=== PATIENT | female | born 1980 | race Caucasian/White ===

== ENCOUNTER → 2017-11-29 13:48 | Outpatient (CLI) | payer OTHER, SELFPAY | PROVIDERS: Family Provider Family Medicine; PCP Family Medicine; Visit Provider Physician Assistant | DX: J02.0 Streptococcal pharyngitis (principal) | CPT/HCPCS: 87070; 87077; 87147 ==

== ENCOUNTER → 2018-05-10 15:13 | Outpatient (CLI) | payer OTHER, SELFPAY ==
[2018-05-10 16:00] LABS: Add Manual Diff / Slide Review NO; Basophils Absolute Auto 100 /uL (0-100); Basophils Percent Auto 0.7 % (0-2); Eosinophils Absolute Auto 300 /uL (0-450); Eosinophils Percent Auto 3.3 % (2-4); Hematocrit 41.9 % (36-46); Lymphocytes Absolute Auto 3100 /uL (1100-4500); Lymphocytes Percent Auto 35.1 % (25-40); Mean Corpuscular HGB Conc 33.3 % (30-36); Mean Corpuscular Hemoglobin 28.8 PG (26-34); Mean Corpuscular Volume 86.6 fL (80-100); Monocytes Absolute Auto 600 /uL (0-900); Monocytes Percent Auto 6.6 % (3-14); Neutrophils Absolute Auto 4800 /uL (1500-7000); Neutrophils Percent Auto 54.3 % (50-75); Platelet Count 292 X10^3/uL (150-400); Red Blood Cell Count 4.84 X10^6/uL (4.0-5.2); Red Cell Distribution Width 13.5 % (11.6-14.8); White Blood Cell Count 8.9 X10^3/uL (4.5-11.0)
== END ==
PROVIDERS: PCP Family Medicine; Visit Provider Registered Nurse
DX: R10.13 Epigastric pain (principal)
CPT/HCPCS: 36415; 83013; 85025

== ENCOUNTER → 2018-06-13 12:07 | Outpatient (CLI) | payer OTHER, MEDICAID, SELFPAY ==
[2018-06-13 14:28] LABS: Urine N gonorrhoeae NOT DETECTED
[2018-06-13 14:37] LABS: Urine Chlamydia NOT DETECTED
[2018-06-14 16:06] LABS: HIV Ag/Ab, 4th Gen Nonreactive (Nonreactive)
[2018-06-15 08:40] LABS: Hepatitis A Antibody IgM NONREACTIVE (NONREACTIVE); Hepatitis Acute Panel Interp 0.02; Hepatitis B Core Antibody IgM NONREACTIVE (NONREACTIVE); Hepatitis B Surface Antigen NONREACTIVE (NONREACTIVE); Hepatitis C Antibody NONREACTIVE
[2018-06-15 23:05] LABS: RPR Screen Nonreactive (Nonreactive)
== END ==
PROVIDERS: PCP Family Medicine; Visit Provider Registered Nurse
DX: Z11.3 Encounter for screening for infections with a predominantly sexual mode of transmission (principal)
CPT/HCPCS: 36415; 80074; 86592; 86703; 87491; 87591

== ENCOUNTER 2018-10-09 07:17 | Emergency (ER) | payer OTHER, MEDICAID, SELFPAY ==
[2018-10-09 07:26] VITALS: BP 135/79; PULSE 70; RESP 13; TEMP 36.9; O2SAT 98
--- NOTE | 2018-10-09 07:52 | ED.HA ---
HPI - Headache General Chief Complaint: Headache Stated Complaint: Migraine, fogginess, dizziness, body ache Time Seen by Provider: 10/09/18 07:44 Source: patient Mode of arrival: ambulatory Limitations: no limitations History of Present Illness HPI Narrative: Patient complains of headache for the last 2-3 days. She states that the pain is on the left side of her head and face. She has also had nausea, but no vomiting. Patient has a history of migraine headaches, as well as which she states is most likely fibromyalgia, as her mother is also reflected by this. Patient states that the headache feels like other headaches she has had, though it is on the more severe end of the spectrum. Patient states that her vision seems ?slow? and that light bothers her eyes. Patient denies recent head injury. No fevers or chills. No recent upper respiratory or sinus illness. No other complaints at this time. Related Data Previous Rx's Medication Instructions Recorded norethindrone-ethinyl estradiol 1 1 tab PO DAILY #63 tab 10/02/18 mg-35 mcg (21) tablet Allergies Allergy/AdvReac Type Severity Reaction Status Date / Time Penicillins Allergy Intermediate nausea and Verified 10/02/18 08:46 itching. sulfamethoxazole Allergy Mild Hives Verified 10/02/18 08:46 [From ] trimethoprim [From ] Allergy Mild hives Verified 10/02/18 08:46 Review of Systems Constitutional Denies chills, Denies fever(s), Reports headache(s), Denies lethargy and Denies weakness Eyes Denies change in vision, Denies eye discharge, Denies irritation and Denies loss of vision ENT Ears, Nose, Mouth, and Throat: Denies change in voice, Reports headache(s), Denies neck pain and Denies sore throat Cardiovascular Denies chest pain, Denies irregular heart rhythm, Denies lightheadedness, Denies palpitations, Denies dyspnea, Denies dyspnea on exertion and Denies orthopnea Respiratory Denies cough, Denies dyspnea, Denies dyspnea on exertion and Denies wheezing Gastrointestinal Gastrointestinal: Denies abdominal pain, Denies change in bowel habits, Denies diarrhea, Reports nausea and Denies vomiting Genitourinary Denies hematuria, Denies flank pain, Denies urinary incontinence and Denies urinary urgency Musculoskeletal Denies neck pain Integumentary/Breasts Denies pruritus, Denies erythema, Denies rash and Denies wounds Neurologic Denies confusion, Reports headache(s), Denies loss of vision and Denies weakness Psychiatric Denies anxiety, Denies confusion, Denies depression, Denies homicidal ideation and Denies suicidal ideation Endocrine Denies palpitations Hematologic/Lymphatic Denies easy bruising Allergic/Immunologic Denies wheezing [facility] Medical History ADHD (Chronic) Acne (Chronic) Anxiety (Chronic) Chronic back pain (Chronic) Depression (Chronic) Eczema (Chronic) Headache (Chronic) Human papilloma virus (Chronic) Irregular menstrual cycle (Chronic) Migraines (Chronic) Overactive bladder (Chronic ~2008) Painful menstrual periods (Chronic) Plantar warts (Chronic) Post traumatic stress disorder (PTSD) (Chronic) Abnormal Pap smear of cervix (Resolved) Chicken pox (Resolved) Fractures (Resolved) Vertigo (Resolved ~2017) Surgical History Anesthesia (Resolved) History of surgery (Resolved ~2013) History of tonsillectomy and adenoidectomy (Resolved) History of tubal ligation (Resolved ~08/2008) Family History Father Bladder cancer Diabetes mellitus Atrial fibrillation Mother Heart disease Hypertension Atrial fibrillation Brother Hyperlipidemia Hypertension Grandmother Stroke Social History marital status: unmarried,single number of children: 2 household members: family lives independently: Yes education level: college occupational status: employed Smoking Status: Former smoker alcohol intake: current (rare) substance use type: does not use Family History Father Bladder cancer Diabetes mellitus Atrial fibrillation Mother Heart disease Hypertension Atrial fibrillation Brother Hyperlipidemia Hypertension Grandmother Stroke Social History marital status: unmarried,single number of children: 2 household members: family lives independently: Yes education level: college occupational status: employed Smoking Status: Former smoker alcohol intake: current (rare) substance use type: does not use Exam Initial Vital Signs Initial Vital Signs: Vital Signs Temperature 98.4 F 10/09/18 07:26 Pulse Rate 70 10/09/18 07:26 Respiratory Rate 13 10/09/18 07:26 Blood Pressure 135/79 10/09/18 07:26 Pulse Oximetry 98 10/09/18 07:26 Const General: cooperative and well developed Nutritional Appearance: well nourished Orientation: alert, awake, oriented x3 and not confused [facility] Head: normocephalic and atraumatic Ears: external ears normal Nose: external nose normal and No nasal discharge Face and sinus: face symmetric and No dry mucous membranes Mouth: oral mucosae normal and moist mucous membranes Teeth and gingiva: dentition normal Eyes General: appearance normal, both eyes and all related structures Eyelids: eyelids normal Conjunctivae: conjunctivae normal Sclera: sclerae normal Pupils: PERRL EOM: EOM intact bilaterally Neck Neck: normal visual inspection, trachea midline, No lymphadenopathy, No midline deformity and No JVD Lymphatic: No lymphedema Chest Chest: normal inspection of the chest Resp Effort & Inspection: normal respiratory effort, able to speak in complete sentences, no respiratory distress and no use of accessory muscles Auscultation: clear to auscultation bilaterally, no rales, no rhonchi and no wheezes Cardio Rate: regular rate Rhythm: regular rhythm Heart Sounds: no click, no gallops, no murmurs and no rubs Pulses: normal peripheral pulses GI Inspection: non-distended Palpation: soft, no hepatosplenomegaly, No guarding, No pulsatile mass and No tender Back/Spine/Pelvis Back: No CVA tenderness Cervical Spine: cervical ROM normal and No pain with cervical ROM Thoracic/Lumbar Spine: thoracic and lumbar spine normal to inspection Skin General: no rashes or lesions noted, No jaundice and No petechiae Neuro General: alert, oriented x3, gait normal and no focal motor deficits Speech: speech normal Extrem General: full ROM, no clubbing, cyanosis or edema, no pedal edema and no calf tenderness Psych Appearance: well kempt Mental Status: mental status grossly normal Attitude: cooperative Thought Content: normal and suicidality Judgment: judgment good Course Course Narrative: Patient was offered IM medication versus IV, and ultimately, was decided that IV fluids and meds would be given. Patient was given a L of IV saline, as well as doses of Benadryl, Toradol, and Compazine, with improvement in symptoms. I felt she was stable for discharge home. We have discussed home management of symptoms, as well as the usual indications for return. Orders Ordered: Discontinued Medications Diphenhydramine HCl (Benadryl) 25 mg IV NOW ONE Stop: 10/09/18 07:52 Last Admin: 10/09/18 08:18 Dose: 25 mg Sodium Chloride (Normal Saline 0.9%) 1,000 mls @ 1,000 mls/hr IV BOLUS ONE Stop: 10/09/18 08:50 Last Admin: 10/09/18 08:19 Dose: 1,000 mls/hr Ketorolac Tromethamine (Toradol) 30 mg IV NOW ONE Stop: 10/09/18 07:52 Last Admin: 10/09/18 08:19 Dose: 30 mg Prochlorperazine (Compazine) 10 mg IV NOW ONE Stop: 10/09/18 07:52 Last Admin: 10/09/18 08:19 Dose: 10 mg Vital Signs - 8 hr 10/09/18 07:26 Temperature 98.4 F Pulse Rate 70 Respiratory Rate 13 Blood Pressure 135/79 Pulse Oximetry 98 MDM - Headache Medical Records Attestation: I reviewed the patient's medical records. Discharge Plan Departure Patient Disposition: Home Clinical Impression: Headache Qualifiers: Headache type: unspecified Headache chronicity pattern: episodic headache Intractability: not intractable Qualified Code(s): R51 - Headache Discharge Date/Time: 10/09/18 09:48 Interventions: ED Discharge Assessment Last Done: 10/09/18 09:46 Instructions: DI for Headache Prescriptions: No Action Nortrel 1/35 (21) 1-35 mg-mcg (21) tablet 1 tab PO DAILY Qty: 63 RF: 0 Referrals: Winsome Anderson DO [Primary Care Provider] -
[2018-10-09] MEDS: diphenhydrAMINE 50 MG/ML VIAL 25 MG IV (08:18)
[2018-10-09] MEDS: KETOROLAC 60 MG/2 ML VIAL 30 MG IV (08:19)
[2018-10-09] MEDS: PROCHLORPERAZINE 10 MG/2 ML VIAL IV (08:19)
[2018-10-09] MEDS: SODIUM CHLORIDE 0.9% 1,000 ML 1000 ML IV (08:19)
[2018-10-09 09:46] VITALS: BP 126/78; PULSE 68; RESP 13; TEMP 36.6; O2SAT 100
--- NOTE | 2018-10-22 14:40 | PC.NURSE ---
iv started 755, fluids started at that time 1000cc ns infused/ done at 0915.late entry
== END 2018-10-09 09:48 | disposition home or self-care (01) ==
PROVIDERS: Emergency Provider Emergency Medicine; PCP Family Medicine
DX: R51 Headache (principal)
CPT/HCPCS: 36591; 96361; 96374; 96375; 99282; 99284; J0780; J1200; J1885

== ENCOUNTER → 2018-10-23 14:37 | Outpatient (CLI) | payer OTHER, MEDICAID, SELFPAY ==
[2018-10-23 15:14] LABS: Hematocrit 41.1 % (36-46); Hemoglobin 13.6 g/dL (12.0-16.0); Mean Corpuscular HGB Conc 33.1 % (30-36); Mean Corpuscular Hemoglobin 28.5 PG (26-34); Mean Corpuscular Volume 86.1 fL (80-100); Platelet Count 287 X10^3/uL (150-400); Red Blood Cell Count 4.77 X10^6/uL (4.0-5.2); Red Cell Distribution Width 13.3 % (11.6-14.8); White Blood Cell Count 9.3 X10^3/uL (4.5-11.0)
[2018-10-23 15:44] LABS: Erythrocyte Sedimentation Rate 11 MM/HR (0-20)
[2018-10-23 15:55] LABS: C-Reactive Protein Quant 2.6 mg/dL (<1.0)
[2018-10-23 16:04] LABS: Rheumatoid Factor < 8.6 IU/mL (<12.0)
== END ==
PROVIDERS: PCP Family Medicine; Visit Provider Registered Nurse
DX: M25.50 Pain in unspecified joint (principal); G89.29 Other chronic pain
CPT/HCPCS: 36415; 85027; 85651; 86038; 86140; 86430

== ENCOUNTER 2018-11-18 16:08 | Emergency (ER) | payer OTHER, MEDICAID, SELFPAY ==
[2018-11-18 16:29] VITALS: BP 133/83; PULSE 95; RESP 15; TEMP 37; O2SAT 97; BMI 38.2
--- NOTE | 2018-11-18 16:34 | DI.RAD.S_ITS ---
PROCEDURE: XR KNEE RT 1TO2V INDICATIONS: fall TECHNIQUE: 2 views of the knee were acquired. COMPARISON: None. FINDINGS: Bones: No fractures or dislocations. No suspicious bony lesions. Soft tissues: No joint effusion. No suspicious soft tissue calcifications. IMPRESSION: 1. No fracture or dislocation. Dictated by: Javid Cardenas M.D. on 11/18/2018 at 16:27 Approved by: Javid Cardenas M.D. on 11/18/2018 at 16:28
[2018-11-18] MEDS: KETOROLAC 60 MG/2 ML VIAL IM (18:44)
--- NOTE | 2018-11-18 19:30 | ED.LOWEXIN ---
HPI - Extremity Injury (Lower) <RENO Craft - Last Filed: 11/18/18 20:12> General Chief Complaint: Extremity Injury, Lower Stated Complaint: fall, hurt her right knee Time Seen by Provider: 11/18/18 18:02 Source: patient Mode of arrival: Family Vehicle Limitations: no limitations History of Present Illness HPI Narrative: The patient is a 38 year old female former smoker with history of PCOS who presents with a chief complaint of knee pain. She states she slipped on a recently mopped floor and landed on her right knee. She subsequently has pain in her right patella area. She was able to ambulate after. This happened this morning approximately 10:00 a.m.. She denies any twisting or popping. She states she landed directly on her knee cap. No previous injuries to the knee. Took some Tylenol and nothing else. Complains of bruising and swelling. Related Data Previous Rx's Medication Instructions Recorded norethindrone-ethinyl estradiol 1 1 tab PO DAILY #63 tab 10/02/18 mg-35 mcg (21) tablet Allergies Allergy/AdvReac Type Severity Reaction Status Date / Time Penicillins Allergy Intermediate nausea and Verified 10/23/18 13:51 itching. sulfamethoxazole Allergy Mild Hives Verified 10/23/18 13:51 [From ] trimethoprim [From ] Allergy Mild hives Verified 10/23/18 13:51 Review of Systems <RENO Craft - Last Filed: 11/18/18 20:12> Review of Systems Narrative: GENERAL: Denies chills, fatigue, malaise, fever, sweats. HEENT: Denies sinus pain, ear pain, sore throat, difficulty swallowing, dizziness. RESPIRATORY: Denies dyspnea, cough, wheezing, hemoptysis, sputum. CARDIOVASCULAR: Denies chest pain, palpitations, orthopnea, edema, GASTROINTESTINAL: Denies nausea, vomiting, abdominal pain, diarrhea, constipation, melena. : Denies dysuria, frequency, incontinence, hematuria, urinary retention. MUSCULOSKELETAL: See HPI SKIN: See HPI NEUROLOGIC: Denies weakness, headache, numbness, change in speech, confusion, seizures, incoordination. PSYCHIATRIC: No concerning psychosocial issues. 12 point review of systems is negative except for those stated above PFSH <RENO Craft - Last Filed: 11/18/18 20:12> Medical History (Updated 11/18/18 @ 19:36 by RENO Craft) Abnormal Pap smear of cervix (Resolved) Acne (Chronic) ADHD (Chronic) Anxiety (Chronic) Chicken pox (Resolved) Chronic back pain (Chronic) Depression (Chronic) Eczema (Chronic) Family history of fibromyalgia (Acute) Fractures (Resolved) Headache (Chronic) Human papilloma virus (Chronic) Irregular menstrual cycle (Chronic) Migraines (Chronic) Obesity (Acute) Overactive bladder (Chronic ~2008) Painful menstrual periods (Chronic) Plantar warts (Chronic) Post traumatic stress disorder (PTSD) (Chronic) Vertigo (Resolved ~2017) Surgical History Anesthesia (Resolved) History of surgery (Resolved ~2013) History of tonsillectomy and adenoidectomy (Resolved) History of tubal ligation (Resolved ~08/2008) Family History Father Bladder cancer Diabetes mellitus Atrial fibrillation Mother Heart disease Hypertension Atrial fibrillation Brother Hyperlipidemia Hypertension Grandmother Stroke Social History marital status: unmarried,single number of children: 2 household members: family lives independently: Yes education level: college occupational status: employed Smoking Status: Former smoker alcohol intake: current (rare) substance use type: does not use Social History marital status: unmarried,single number of children: 2 household members: family lives independently: Yes education level: college occupational status: employed Smoking Status: Former smoker alcohol intake: current (rare) substance use type: does not use Exam <RENO Craft - Last Filed: 11/18/18 20:12> Narrative Exam Narrative: GENERAL: This is a well-nourished, well-developed patient, appears anxious HEAD: Atraumatic. Normocephalic. No temporal or scalp tenderness. EYES: Pupils equal round and reactive. Extraocular motions intact. No scleral icterus. No injection or drainage. ENT: Nose without bleeding, purulent drainage or septal hematoma. Throat without erythema, tonsillar hypertrophy or exudate. Uvula midline. Airway patent. NECK: Trachea midline. No JVD or lymphadenopathy. Supple, nontender, no meningeal signs. CARDIOVASCULAR: Regular rate and rhythm RESPIRATORY: No cough. No increased respiratory effort. No accessory muscle use. EXTREMITIES: General pain to palpation right knee. Patient declines ligamentous exam a. Full range of motion noted. Positive pedal pulses right hand. BACK: Nontender without deformity or crepitance. No flank tenderness. NEURO: AOx3. SKIN: Ecchymosis and swelling noted over the patella Initial Vital Signs Initial Vital Signs: Vital Signs Temperature 98.6 F 11/18/18 16:29 Pulse Rate 95 H 11/18/18 16:29 Respiratory Rate 15 11/18/18 16:29 Blood Pressure 133/83 11/18/18 16:29 Pulse Oximetry 97 11/18/18 16:29 <Vinicio Stewart DO - Last Filed: 11/18/18 21:49> Initial Vital Signs Initial Vital Signs: Vital Signs Temperature 98.6 F 11/18/18 16:29 Pulse Rate 95 H 11/18/18 16:29 Respiratory Rate 15 11/18/18 16:29 Blood Pressure 133/83 11/18/18 16:29 Pulse Oximetry 97 11/18/18 16:29 Course <RENO Craft - Last Filed: 11/18/18 20:12> Orders Ordered: ED Orders 11/18/18 16:34 XR knee RT 3V Stat Discontinued Medications Ketorolac Tromethamine (Toradol) 60 mg IM NOW ONE Stop: 11/18/18 18:22 Last Admin: 11/18/18 18:44 Dose: 60 mg Documented by: [facility] Vital Signs Vital signs: Vital Signs - 8 hr 11/18/18 16:29 Temperature 98.6 F Pulse Rate 95 H Respiratory Rate 15 Blood Pressure 133/83 Pulse Oximetry 97 <DO Maricruz Hall Last Filed: 11/18/18 21:49> Orders Ordered: ED Orders 11/18/18 16:34 XR knee RT 3V Stat Discontinued Medications Ketorolac Tromethamine (Toradol) 60 mg IM NOW ONE Stop: 11/18/18 18:22 Last Admin: 11/18/18 18:44 Dose: 60 mg Documented by: [facility] Vital Signs Vital signs: Vital Signs - 8 hr 11/18/18 16:29 Temperature 98.6 F Pulse Rate 95 H Respiratory Rate 15 Blood Pressure 133/83 Pulse Oximetry 97 MDM - Extremity Injury (Lower) <RAHEEL CraftBC - Last Filed: 11/18/18 20:12> Imaging Data Right knee x-ray: Radiologist's impression: Who radiologist impression no fracture dislocation. Report not transmitting to [facility] but visible by Radiology MDM Narrative Medical decision making narrative: Patient is a 38 year female who presents with a chief complaint of right knee pain. She was given Toradol in the emergency department. Ice was applied. X-ray shows no acute fracture. She declines any ligamentous or tendon exam. However she is able to bear weight, which is reassuring. I discussed at length rest ice compression elevation as well as [id number] pain medications as needed and able. Encouraged follow-up with PCP especially if no improvement. We did discuss the possibility of an occult fracture. Did give patient a work note. Patient has no questions or concerns upon discharge. States understanding of return precautions as well as follow-up care. Discharge Plan Departure Patient Disposition: Home Clinical Impression: Acute knee pain Qualifiers: Laterality: right Qualified Code(s): M25.561 - Pain in right knee Contusion Qualifiers: Encounter type: initial encounter Contusion area: knee Laterality: right Qualified Code(s): S80.01XA - Contusion of right knee, initial encounter Discharge Date/Time: 11/18/18 19:44 Instructions: DI for Contusion, How To Perform RICE (Rest, Ice, Compress, Elevate), DI for Knee Pain Activity Restrictions/Additional Instructions: Your x-ray today shows no acute fracture. Please use rest ice compression elevation as well as [id number] pain medications as needed and able. Please follow up with primary care provider if worsening or no improvement. Please come back to the emergency department for decreased circulation or any acute concerns. Prescriptions: No Action Nortrel 1/35 (21) 1-35 mg-mcg (21) tablet 1 tab PO DAILY Qty: 63 RF: 0 Referrals: Winsome Anderson DO [Primary Care Provider] - <Vinicio Stewart DO - Last Filed: 11/18/18 21:49> Sign Out Provider Sign Out Attestation: I was available for consultation during this patient's emergency department encounter
== END 2018-11-18 19:44 | disposition home or self-care (01) ==
PROVIDERS: Emergency Provider Nurse Practitioner Family; PCP Family Medicine
DX: M25.561 Pain in right knee (principal); S80.01XA Contusion of right knee, initial encounter
CPT/HCPCS: 73560; 73562; 96372; 99282; 99283; J1885

== ENCOUNTER → 2019-06-18 15:07 | Outpatient (CLI) | payer OTHER, MEDICAID, SELFPAY ==
[2019-06-18 16:32] LABS: Add Manual Diff / Slide Review NO; Basophils Absolute Auto 100 /uL (0-100); Basophils Percent Auto 0.6 % (0-2); Eosinophils Absolute Auto 200 /uL (0-450); Eosinophils Percent Auto 1.8 % (2-4); Hematocrit 40.3 % (36-46); Hemoglobin 13.7 g/dL (12.0-16.0); Lymphocytes Absolute Auto 2700 /uL (1100-4500); Lymphocytes Percent Auto 29.4 % (25-40); Mean Corpuscular Volume 85.4 fL (80-100); Monocytes Absolute Auto 400 /uL (0-900); Monocytes Percent Auto 3.9 % (3-14); Neutrophils Absolute Auto 5800 /uL (1500-7000); Neutrophils Percent Auto 64.3 % (50-75); Platelet Count 295 X10^3/uL (150-400); Red Blood Cell Count 4.73 X10^6/uL (4.0-5.2); Red Cell Distribution Width 13.7 % (11.6-14.8); White Blood Cell Count 9.1 X10^3/uL (4.5-11.0)
[2019-06-18 16:45] LABS: Alanine Aminotransferase 23 IU/L (<35); Albumin 4.6 g/dL (3.5-5.0); Albumin Globulin Ratio 1.4 (1.0-2.8); Alkaline Phosphatase 69 U/L (38-126); Aspartate Aminotransferase 23 IU/L (14-36); BUN Creatinine Ratio 18.7 (6-22); Bilirubin Total 0.3 mg/dL (0.2-1.3); Blood Urea Nitrogen 14 mg/dL (7-17); Calcium 9.5 mg/dL (8.4-10.2); Carbon Dioxide 27 mmol/L (22-32); Chloride 104 mmol/L (98-107); Estimated Glomerular Filt Rate > 60.0 mL/min (>60); Globulin 3.4 g/dL (1.7-4.1); Glucose 96 mg/dL (70-100); HEMOLYSIS < 15 (0-50); Potassium 4.1 mmol/L (3.4-5.1); Sodium 140 mmol/L (137-145)
[2019-06-18 16:49] LABS: C-Reactive Protein Quant < 0.5 mg/dL (<1.0)
[2019-06-18 17:00] LABS: Vitamin D 25 Hydroxy (D3) 21.2 ng/mL (30.0-100.0)
[2019-06-18 17:15] LABS: TSH w/ Reflex to FT4 1.78 uIU/mL (0.47-4.68)
[2019-06-18 17:32] LABS: Vitamin B12 289 pg/mL (239-931)
== END ==
PROVIDERS: PCP Family Medicine; Referring Provider Family Medicine; Visit Provider Family Medicine
DX: G62.9 Polyneuropathy, unspecified (principal)
CPT/HCPCS: 36415; 80053; 82306; 82607; 84443; 85025; 86140

== ENCOUNTER → 2019-10-15 16:05 | Outpatient (CLI) | payer OTHER, MEDICAID, SELFPAY ==
--- NOTE | 2019-10-15 16:06 | DI.RAD.S_ITS ---
PROCEDURE: XR HIP W PEL IF DONE RT 2V INDICATIONS: r hip pain TECHNIQUE: AP pelvis with lateral view(s) of the right hip(s). COMPARISON: [facility], , HIP 2V LEFT, 10/30/2012, 16:24. FINDINGS: Bones: No fractures or dislocations. Pelvic ring appears intact. No suspicious bony lesions. Mild bilateral hip joint degeneration. Soft tissues: The visualized bowel gas pattern is normal. No suspicious soft tissue calcifications. IMPRESSION: Mild bilateral hip joint degeneration. If the patient's pain or other symptoms persist, consider further evaluation with MRI Dictated by: Roshan Cota M.D. on 10/15/2019 at 16:24 Approved by: Roshan Cota M.D. on 10/15/2019 at 16:30
== END ==
PROVIDERS: PCP Family Medicine; Referring Provider Family Medicine; Visit Provider Physician Assistant
DX: M25.551 Pain in right hip (principal); M16.0 Bilateral primary osteoarthritis of hip
CPT/HCPCS: 73502

== ENCOUNTER 2019-11-22 21:44 | Emergency (ER) | payer OTHER, MEDICAID, SELFPAY ==
[2019-11-22] VITALS (7 sets, daily range): BP systolic 139–179; BP diastolic 66–96; PULSE 78–85; RESP 16; TEMP 36.3; O2SAT 95–100; BMI 33.7
== END 2019-11-23 00:21 | disposition left against medical advice (07) ==
PROVIDERS: Emergency Provider Emergency Medicine; PCP Family Medicine
DX: R51 Headache (principal)
CPT/HCPCS: 36415; 99283

== ENCOUNTER 2019-11-25 14:28 | Emergency (ER) | payer OTHER, MEDICAID, SELFPAY ==
[2019-11-25 14:40] VITALS: PULSE 97; O2SAT 98
[2019-11-25 14:44] VITALS: BP 139/77; PULSE 95; RESP 16; TEMP 37.2; O2SAT 97; BMI 33.7
[2019-11-25 15:00] VITALS: PULSE 92; O2SAT 97
[2019-11-25 15:30] VITALS: PULSE 80; O2SAT 97
--- NOTE | 2019-11-25 15:33 | PC.NURSE ---
pt also c/o generalized joint pain
--- NOTE | 2019-11-25 15:55 | ED_ITS ---
HPI - Headache General Chief Complaint: Headache Stated Complaint: Headache, Dizzy, High BP, Joint Aches Time Seen by Provider: 11/25/19 15:04 Source: patient Mode of arrival: Ambulatory Limitations: no limitations History of Present Illness HPI Narrative: Patient is a 39-year-old female with history of fibromyalgia presenting with headache and dizziness ongoing for the last 3 days. She says she has a throbbing sharp headache on the left side. She feels dizzy and lightheaded when she stands up she has not passed out. She denies any fever or neck pain. She has no chest pain or heart palpitations. Was just a fibromyalgia flare however has persisted longer than normal. She has been taking Excedrin migraine without any relief. He typically does not get headaches. Sensitive to light but not no noise. MD Complaint: headache Onset description: sudden Location: left Related Data Previous Rx's Medication Instructions Recorded citalopram 40 mg tablet 40 mg PO DAILY #90 tab 05/09/19 cyclobenzaprine 10 mg tablet 10 mg PO BEDTIME #20 tab 08/07/19 diclofenac sodium 75 mg 75 mg PO BID #60 tab 08/07/19 tablet,delayed release Allergies Allergy/AdvReac Type Severity Reaction Status Date / Time Penicillins Allergy Intermediate nausea and Verified 10/15/19 17:38 itching. sulfamethoxazole Allergy Mild Hives Verified 10/15/19 17:38 [From ] trimethoprim [From ] Allergy Mild hives Verified 10/15/19 17:38 Review of Systems Review of Systems Narrative: GENERAL: Denies chills, fatigue, malaise, fever, sweats, travel HEENT: Denies sinus pain, ear pain, sore throat, difficulty swallowing, neck pain RESPIRATORY: Denies dyspnea, cough, wheezing, hemoptysis, sputum. CARDIOVASCULAR: Denies chest pain, palpitations, orthopnea, edema GASTROINTESTINAL: Denies nausea, vomiting, abdominal pain, diarrhea, constipa tion, melena. : Denies dysuria, frequency, incontinence, hematuria, urinary retention, flank pain. MUSCULOSKELETAL: Denies weakness, joint pain, or bony pain SKIN: No rash, no erythema, no pruritus NEUROLOGIC: See HPI PSYCHIATRIC: No concerning psychosocial issues. 12 point review of systems is negative except for those stated above and HPI Patient History Medical History Abnormal Pap smear of cervix (Resolved) Acne (Chronic) ADHD (Chronic) Anxiety (Chronic) Chicken pox (Resolved) Chronic back pain (Chronic) Depression (Chronic) Depression with anxiety (Chronic) Eczema (Chronic) Family history of fibromyalgia (Acute) Fractures (Resolved) Headache (Chronic) Human papilloma virus (Chronic) Irregular menstrual cycle (Chronic) Migraines (Chronic) Obesity (Acute) Overactive bladder (Chronic ~2008) Painful menstrual periods (Chronic) Plantar warts (Chronic) Post traumatic stress disorder (PTSD) (Chronic) Vertigo (Resolved ~2017) Surgical History Anesthesia (Resolved) History of surgery (Resolved ~2013) History of tonsillectomy and adenoidectomy (Resolved) History of tubal ligation (Resolved ~08/2008) Family History Father Bladder cancer Diabetes mellitus Atrial fibrillation Mother Heart disease Hypertension Atrial fibrillation Brother Hyperlipidemia Hypertension Grandmother Stroke Social History marital status: unmarried,single number of children: 2 household members: family lives independently: Yes education level: college occupational status: employed Smoking Status: Former smoker alcohol intake: current substance use type: does not use Smoking Status: Former smoker alcohol intake frequency: a few times a month Substance Use Type: does not use Exam Initial Vital Signs Initial Vital Signs: Vital Signs Pulse Rate 97 H 11/25/19 14:40 Pulse Oximetry 98 11/25/19 14:40 GENERAL: Well-appearing, well-nourished and in no acute distress. HEENT: Head atraumatic,EOMI, pupils reactive, face symmetric, no meningeal signs CARDIOVASCULAR: Regular rate and rhythm without murmurs, rubs or gallops. RESPIRATORY: Breath sounds equal bilaterally, no wheezes rales or rhonchi. ABDOMEN: Soft, nontender. Normoactive bowel sounds all 4 quadrants. No guarding or rebound. EXTREMITIES: Normal range of motion, no clubbing or edema. Neurovascularly intact NEUROLOGICAL: Alert and oriented x4.Normal gait and speech. 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 Scores NIH Stroke Scale Level of Conciousness: Alert, keenly responsive Ask month/age: Answers both questions correctly. Open/close eyes, close hand: Performs both tasks correctly Best gaze horizontal: Normal Visual venegas: No visual loss Facial palsy: Normal symetrical movement Left arm drift: No drift for full 10 sec Right arm drift: No drift for full 10 sec Left leg drift: No drift for full 5 sec Right leg drift: No drift for full 5 sec Limb ataxia: Absent Sensory on face/arms/legs: Normal, no sensory loss Best language: No aphasia, normal Dysarthria: Normal Extinction or inattention: No abnormality Total NIH Stroke scale score: 0 Course Orders Ordered: ED Orders 11/25/19 15:00 Complete Blood Count AUTO DIFF Stat Comprehensive Metabolic Panel Stat 11/25/19 16:15 CT head/brain wo con Stat Discontinued Medications Sodium Chloride (Normal Saline 0.9%) 1,000 mls @ 1,000 mls/hr IV BOLUS ONE Stop: 11/25/19 16:59 Last Infusion: 11/25/19 17:35 Dose: 0 mls/hr Documented by: Admin: 11/25/19 16:18 Dose: 1,000 mls/hr Documented by: PANCHO Ketorolac Tromethamine (Toradol) 30 mg IV NOW ONE Stop: 11/25/19 16:01 Last Admin: 11/25/19 16:18 Dose: 30 mg Documented by: PANCHO Vital Signs Vital signs: Vital Signs - 8 hr 11/25/19 14:40 11/25/19 14:44 11/25/19 15:00 Temperature 99 F Pulse Rate 97 H 95 H 92 H Respiratory Rate 16 Blood Pressure 139/77 Pulse Oximetry 98 97 97 11/25/19 15:30 11/25/19 15:58 11/25/19 17:02 Temperature Pulse Rate 80 76 Respiratory Rate Blood Pressure 127/60 Pulse Oximetry 97 97 MDM - Headache Lab Data Attestation: I reviewed the patient's lab results. Result diagrams: 11/25/19 15:00 11/25/19 15:00 Labs: Lab Results 11/25/19 11/25/19 Range/Units 15:00 15:00 WBC 9.5 (4.5-11.0) X10^3/uL RBC 4.80 (4.0-5.2) X10^6/uL Hgb 14.0 (12.0-16.0) g/dL Hct 41.2 (36-46) % MCV 85.9 (80-100) fL MCH 29.2 (26-34) PG MCHC 34.0 (30-36) % RDW 13.5 (11.6-14.8) % Plt Count 283 (150-400) X10^3/uL Neut % (Auto) 71.7 (50-75) % Lymph % (Auto) 21.8 L (25-40) % Island % (Auto) 4.1 (3-14) % Eos % (Auto) 1.6 L (2-4) % Baso % (Auto) 0.8 (0-2) % Neut # (Auto) 6800 (5586-8192) /uL Lymph # (Auto) 2100 (5753-9757) /uL Island # (Auto) 400 (0-900) /uL Eos # (Auto) 200 (0-450) /uL Baso # (Auto) 100 (0-100) /uL Sodium 140 (137-145) mmol/L Potassium 4.0 (3.4-5.1) mmol/L Chloride 103 (98-107) mmol/L Carbon Dioxide 26 (22-32) mmol/L BUN 13 (7-17) mg/dL Creatinine 0.84 (0.52-1.04) mg/dL Estimated GFR > 60.0 (>60) mL/min BUN/Creatinine Ratio 15.5 (6-22) Glucose 161 H (70-100) mg/dL Calcium 9.3 (8.4-10.2) mg/dL Total Bilirubin 0.3 (0.2-1.3) mg/dL AST 22 (14-36) IU/L ALT 25 (<35) IU/L Alkaline Phosphatase 62 (38-126) U/L Total Protein 7.5 (6.3-8.2) g/dL Albumin 4.3 (3.5-5.0) g/dL Globulin 3.2 (1.7-4.1) g/dL Albumin/Globulin Ratio 1.3 (1.0-2.8) Point of Care Testing Test Results Negative Imaging Data CT scan - head: Radiologist's Impression: PROCEDURE: CT HEAD/BRAIN WO CON INDICATIONS: atypical headache TECHNIQUE: Noncontrast 4.5 mm thick angled axial sections acquired from the foramen magnum to the vertex, with coronal and sagittal reformats. For radiation dose reduction, the following was used: automated exposure control, adjustment of mA and/or kV according to patient size. COMPARISON: [facility], CT, HEAD WITHOUT CONTRAST, 12/26/2006, 19:40. FINDINGS: Image quality: Excellent. CSF spaces: Basal cisterns are patent. No extra-axial fluid collections. Ventricles are normal in size and shape. Brain: No midline shift. No intracranial masses or hemorrhage. Cook-white matter interface is normal. Skull and face: Calvarium and visualized facial bones are intact, without suspicious lesions. Sinuses: Visualized sinuses and mastoids are clear. IMPRESSION: No CT evidence of acute intracranial pathology. Dictated by: Kushal Coles M.D. on 11/25/2019 at 15:30 ECG Data Attestation: I personally reviewed and interpreted this ECG as follows: Prior ECG tracings: available for review Interpretation: Normal sinus rhythm rate 90 p.r. interval 138 QRS [address] changes MDM Narrative Medical decision making narrative: The patient is overall feeling little bit better after Toradol and IV fluids. His CT is negative. He has no focal deficits at this time it appears to be migraine like headache. She is driving herself home and cannot have any further medication Discharge Plan Departure Patient Disposition: Home Clinical Impression: Headache Discharge Date/Time: 11/25/19 18:42 Instructions: DI for Headache Activity Restrictions/Additional Instructions: *You have been diagnosed with headache *What to do: At this time blood work and CT scan are within normal limits. Recommend stay hydrated and rest *Continue to take medications as directed Do not take Excedrin migraine or ibuprofen for 8 hours-you received Toradol in the ED *Follow up with your primary care provider in 2-3 days *Return to ER if you should have worsening headache, fever, neck or any new, worsening or concerning symptoms Prescriptions: No Action citalopram 40 mg tablet 40 mg PO DAILY Qty: 90 RF: 0 cyclobenzaprine 10 mg tablet 10 mg PO BEDTIME Qty: 20 RF: 0 diclofenac sodium 75 mg tablet,delayed release (DR/EC) 75 mg PO BID Qty: 60 RF: 0 Referrals: Winsome Anderson DO [Primary Care Provider] -
[2019-11-25 15:58] VITALS: PULSE 76; O2SAT 97
[2019-11-25 16:07] LABS: Add Manual Diff / Slide Review NO; Basophils Absolute Auto 100 /uL (0-100); Basophils Percent Auto 0.8 % (0-2); Eosinophils Absolute Auto 200 /uL (0-450); Eosinophils Percent Auto 1.6 % (2-4); Hematocrit 41.2 % (36-46); Lymphocytes Absolute Auto 2100 /uL (1100-4500); Lymphocytes Percent Auto 21.8 % (25-40); Mean Corpuscular Hemoglobin 29.2 PG (26-34); Mean Corpuscular Volume 85.9 fL (80-100); Monocytes Absolute Auto 400 /uL (0-900); Monocytes Percent Auto 4.1 % (3-14); Neutrophils Absolute Auto 6800 /uL (1500-7000); Neutrophils Percent Auto 71.7 % (50-75); Platelet Count 283 X10^3/uL (150-400); Red Cell Distribution Width 13.5 % (11.6-14.8); White Blood Cell Count 9.5 X10^3/uL (4.5-11.0)
[2019-11-25 16:12] LABS: Alanine Aminotransferase 25 IU/L (<35); Albumin 4.3 g/dL (3.5-5.0); Albumin Globulin Ratio 1.3 (1.0-2.8); Alkaline Phosphatase 62 U/L (38-126); Aspartate Aminotransferase 22 IU/L (14-36); BUN Creatinine Ratio 15.5 (6-22); Bilirubin Total 0.3 mg/dL (0.2-1.3); Blood Urea Nitrogen 13 mg/dL (7-17); Calcium 9.3 mg/dL (8.4-10.2); Carbon Dioxide 26 mmol/L (22-32); Chloride 103 mmol/L (98-107); Estimated Glomerular Filt Rate > 60.0 mL/min (>60); Globulin 3.2 g/dL (1.7-4.1); Glucose 161 mg/dL (70-100); HEMOLYSIS < 15 (0-50); Sodium 140 mmol/L (137-145); Total Protein 7.5 g/dL (6.3-8.2)
--- NOTE | 2019-11-25 16:15 | DI.CT.S_ITS ---
PROCEDURE: CT HEAD/BRAIN WO CON INDICATIONS: atypical headache TECHNIQUE: Noncontrast 4.5 mm thick angled axial sections acquired from the foramen magnum to the vertex, with coronal and sagittal reformats. For radiation dose reduction, the following was used: automated exposure control, adjustment of mA and/or kV according to patient size. COMPARISON: [facility], CT, HEAD WITHOUT CONTRAST, 12/26/2006, 19:40. FINDINGS: Image quality: Excellent. CSF spaces: Basal cisterns are patent. No extra-axial fluid collections. Ventricles are normal in size and shape. Brain: No midline shift. No intracranial masses or hemorrhage. Cook-white matter interface is normal. Skull and face: Calvarium and visualized facial bones are intact, without suspicious lesions. Sinuses: Visualized sinuses and mastoids are clear. IMPRESSION: No CT evidence of acute intracranial pathology. Dictated by: Kushal Coles M.D. on 11/25/2019 at 15:30 Approved by: Kushal Coles M.D. on 11/25/2019 at 15:30
[2019-11-25] MEDS: SODIUM CHLORIDE 0.9% 1,000 ML 1000 ML IV (16:18)
[2019-11-25] MEDS: KETOROLAC 60 MG/2 ML VIAL 30 MG IV (16:18)
[2019-11-25 17:02] VITALS: BP 127/60
== END 2019-11-25 18:42 | disposition home or self-care (01) ==
PROVIDERS: Emergency Provider Emergency Medicine; PCP Family Medicine
DX: R51 Headache (principal)
CPT/HCPCS: 36415; 70450; 80053; 81025; 85025; 93005; 96361; 96374; 99284; J1885

== ENCOUNTER → 2019-12-16 12:05 | Outpatient (CLI) | payer OTHER, MEDICAID, SELFPAY ==
[2019-12-16 20:42] LABS: HIV 1 & 2 Ab/Ag 4th Gen Combo NEGATIVE (NEGATIVE)
[2019-12-17 04:44] LABS: Hepatitis B Core Antibody Negative (Negative)
[2019-12-17 14:35] LABS: RPR Screen Non Reactive (Non Reactive)
[2019-12-19 12:09] LABS: Hepatitis Be Antibody Negative (Negative)
== END ==
PROVIDERS: PCP Family Medicine; Referring Provider Family Medicine; Visit Provider Family Medicine
DX: Z11.9 Encounter for screening for infectious and parasitic diseases, unspecified (principal)
CPT/HCPCS: 36415; 86592; 86704; 86707; 87389; 87491

== ENCOUNTER 2020-04-11 19:49 | Emergency (ER) | payer OTHER, MEDICAID, SELFPAY ==
[2020-04-11 19:58] VITALS: BP 186/105; PULSE 95; RESP 18; TEMP 36.7; O2SAT 98; BMI 34.4
--- NOTE | 2020-04-11 20:19 | ED.SKABFB ---
HPI - Skin/Abscess/Foreign Bdy General Chief complaint: Skin/Abscess/Foreign Body Stated complaint: lump on stomach, past couple of days Time Seen by Provider: 04/11/20 20:18 Source: patient Mode of arrival: Ambulatory Limitations: no limitations History of Present Illness HPI narrative: 39-year-old woman with a history of untreated hypertension, depression with anxiety presents with a growth on her abdomen that she states seems to be growing is hurting and is making her anxious. She finds that it is right at the skin full which makes it more uncomfortable and her small dog tends to jump right on it as well. There is no redness or drainage. She has not had previous findings in other locations. She denies any fevers, chills, cough, chest pain, dyspnea, palpitations, abdominal pain or change to bowel or bladder habits. Related Data Previous Rx's Medication Instructions Recorded duloxetine 30 mg capsule,delayed 30 mg PO DAILY #30 cap 01/02/20 release hydroxyzine HCl 25 mg tablet 25 mg PO TID PRN #30 tab 01/02/20 Allergies Allergy/AdvReac Type Severity Reaction Status Date / Time Penicillins Allergy Intermediate nausea and Verified 01/02/20 15:06 itching. sulfamethoxazole Allergy Mild Hives Verified 01/02/20 15:06 [From ] trimethoprim [From ] Allergy Mild hives Verified 01/02/20 15:06 Review of Systems Review of Systems ROS Unobtainable: All systems reviewed & are unremarkable except as noted in HPI and below Patient History Medical History (Updated 04/11/20 @ 21:04 by Aleisha Bradshaw MD) Abnormal Pap smear of cervix Acne ADHD Anxiety Chicken pox Chronic back pain Depression Depression with anxiety Eczema Family history of fibromyalgia Fibromyalgia Fractures Headache Human papilloma virus Irregular menstrual cycle Migraines Obesity Overactive bladder (~2008) Painful menstrual periods Plantar warts Post traumatic stress disorder (PTSD) Vertigo (~2017) Surgical History Anesthesia History of surgery (~2013) History of tonsillectomy and adenoidectomy History of tubal ligation (~08/2008) Family History Father Bladder cancer Diabetes mellitus Atrial fibrillation Mother Heart disease Hypertension Atrial fibrillation Brother Hyperlipidemia Hypertension Grandmother Stroke Social History marital status: unmarried,single number of children: 2 household members: family lives independently: Yes education level: college occupational status: employed Smoking Status: Former smoker alcohol intake: current substance use type: does not use Smoking Status: Former smoker alcohol intake frequency: 0-2 drinks per day Substance Use Type: does not use Exam Narrative Exam Narrative: General: Alert appropriate in no acute distress Respiratory: Able to speak in full sentences, no obvious respiratory distress Skin: No obvious rashes, warm and dry abdomen: Small epidermal cyst in the right upper quadrant without any evidence of infection. Bedside ultrasound indicates simple cyst measuring 1 x 1 x 0.5 cm. Neurologic: Grossly intact no obvious asymmetries or abnormalities Psych: appropriate insight and affect, cooperative Initial Vital Signs Initial Vital Signs: Vital Signs Temperature 98.0 F 04/11/20 19:58 Pulse Rate 95 H 04/11/20 19:58 Respiratory Rate 18 04/11/20 19:58 Blood Pressure 186/105 H 04/11/20 19:58 Pulse Oximetry 98 04/11/20 19:58 Course Vital Signs Vital signs: Vital Signs - 8 hr 04/11/20 19:58 Temperature 98.0 F Pulse Rate 95 H Respiratory Rate 18 Blood Pressure 186/105 H Pulse Oximetry 98 MDM - Skin/Abscess/Foreign Bdy MDM Narrative Medical decision making narrative: 39-year-old woman with a small cyst on the anterior portion of the abdomen. Bedside ultrasound confirms it is an epidermal cyst, noninfected and uncomplicated. She is reassured and will contact her primary care physician if it continues to bother her and she would like it removed. We also discussed her elevated blood pressure in the emergency room and strongly recommended that she follow-up with her primary care doctor regarding this as well Discharge Plan Departure Patient Disposition: Home Clinical Impression: Epidermal cyst Hypertension Qualifiers: Hypertension type: essential hypertension Qualified Code(s): I10 - Essential (primary) hypertension Instructions: DI for Epidermal Cyst Activity Restrictions/Additional Instructions: Thank you for coming in today The area that you are concerned about is a simple epidermal cyst that measures about 1 x 1 x 0.5 cm. It is not infected and does not need any additional treatment tonight. If it is continuing to bother you having it removed is a simple office procedure that Dr. Anderson can help with Please get new batteries for your blood pressure cuff and continue checking her blood pressure. You are young enough that your goal blood pressure is 120/70. Please discuss the readings are finding with your primary care physician to see what her next recommendations will be. Prescriptions: No Action duloxetine 30 mg capsule,delayed release(DR/EC) 30 mg PO DAILY Qty: 30 RF: 2 hydroxyzine HCl 25 mg tablet 25 mg PO TID PRN (Reason: anxiety) Qty: 30 RF: 1 Referrals: Winsome Anderson DO [Primary Care Provider] -
[2020-04-11 21:14] VITALS: BP 149/81; PULSE 78; RESP 12; O2SAT 99
== END 2020-04-11 21:16 | disposition home or self-care (01) ==
PROVIDERS: Emergency Provider Emergency Medicine; PCP Family Medicine
DX: L72.0 Epidermal cyst (principal); I10 Essential (primary) hypertension; F41.9 Anxiety disorder, unspecified
CPT/HCPCS: 99281

== ENCOUNTER → 2020-05-29 12:07 | Outpatient (CLI) | payer OTHER, MEDICAID, SELFPAY ==
[2020-05-29] MEDS: COVID-19 VACC #1, MRNA(MOD) 100 MCG/0.5 ML VIAL IM (12:15)
== END ==
PROVIDERS: PCP Family Medicine; Visit Provider Internal Medicine
DX: Z23 Encounter for immunization (principal)
CPT/HCPCS: 0011A; 91301

== ENCOUNTER → 2020-06-15 08:59 | Outpatient (CLI) | payer OTHER, MEDICAID, SELFPAY ==
[2020-06-15 09:22] LABS: COVID19 -Nasal RAPID Negative (Negative)
== END ==
PROVIDERS: PCP Family Medicine; Visit Provider Student in an Organized Health Care Education/Training Program
DX: Z20.822 Contact with and (suspected) exposure to COVID-19 (principal)
CPT/HCPCS: 87635

== ENCOUNTER 2020-06-19 11:32 | Emergency (ER) | payer OTHER, MEDICAID, SELFPAY ==
[2020-06-19 11:53] VITALS: BP 128/72; PULSE 87; RESP 16; TEMP 36.6; O2SAT 98
--- NOTE | 2020-06-19 13:13 | PC.NURSE ---
Patient reports she wants to leave, wound doesn't look very deep and bleeding has stopped. She reports she has wound glue and will get her tetanus at her PCP.
== END 2020-06-19 13:15 | disposition left against medical advice (07) ==
PROVIDERS: Emergency Provider Emergency Medicine; PCP Family Medicine
CPT/HCPCS: 99281

== ENCOUNTER → 2020-07-09 07:53 | Outpatient (CLI) | payer OTHER, MEDICAID, SELFPAY ==
[2020-07-09] MEDS: COVID-19 VACC #2, MRNA(MOD) 100 MCG/0.5 ML VIAL IM (07:58)
== END ==
PROVIDERS: PCP Family Medicine; Visit Provider Internal Medicine
DX: Z23 Encounter for immunization (principal)
CPT/HCPCS: 0012A; 91301

== ENCOUNTER → 2020-07-10 09:51 | Outpatient (CLI) | payer OTHER, MEDICAID, SELFPAY ==
[2020-07-10 10:43] LABS: COVID19 -Nasal RAPID Negative (Negative)
== END ==
PROVIDERS: PCP Family Medicine; Visit Provider Surgery
DX: Z20.822 Contact with and (suspected) exposure to COVID-19 (principal)
CPT/HCPCS: 87635; C9803

== ENCOUNTER 2020-07-13 11:00 | Day surgery (SDC) | payer OTHER, MEDICAID, SELFPAY ==
--- NOTE | 2020-07-13 | PATH_ITS ---
[facility] Accession Number: [id number] . 01 Material submitted: . abdomen - SUBCUTANEOUS ABDOMINAL WALL MASS . 01 Diagnosis: Abdominal Wall, Excision: Dermal based acute and granulomatous inflammation in association with keratin debris, most consistent with changes in the vicinity of a previously ruptured follicle or keratinous cyst; see comment. [facility] 07/20/2020 1647 Local . 01 Comment: Sections demonstrate dermal-based mixed granulomatous, lymphocytic, and neutrophilic inflammation in association with keratin debris, most suggestive of a previously ruptured follicle or a keratinous cyst. In addition, there is scattered polarizable amorphous translucent material. This foreign material may be secondary to prior therapy. There is no evidence of malignancy identified in sections examined. Clinical correlation is suggested. . 01 Electronically signed: . Daljit Thacker MD, Dermatopathologist NPI- [id number] . 01 Gross description: . The specimen is received in formalin, labeled subcutaneous abdominal wall mass and consists of a 3.0 x 0.8 cm gallo skin excised to a depth of 0.7 cm. The margin is inked blue. The specimen is serially sectioned and entirely submitted. . A1: tips: A2-A3: central cross-sections. (EA:[id number]) /MRV 07/15/2020 1048 Local . 01 Pathologist provided ICD-10: L73.9 . 01 CPT . 055098 Performed at: 01 [facility] [address] [place] [address], [place], [place] [id number] MD Javid Pollock MD Phone: [phone]
--- NOTE | 2020-07-13 11:36 | PM.PREOP ---
Pre-operative Note COVID-19 COVID-19 status: Negative Result date/Date tested (Pos, Neg/Pending): 07/12/20 Interval Note History & Physical reviewed/Exam performed by Physician: Yes Changes to H&P: No
[2020-07-13] MEDS: LACTATED RINGERS 1,000 ML 100 ML IV (11:37)
[2020-07-13 11:38] VITALS: BP 127/78; PULSE 73; RESP 14; TEMP 36.5; O2SAT 97; BMI 33.7
--- NOTE | 2020-07-13 11:52 | P.OP_ITS ---
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 Attempted removal in office under local, but patient continues to have pain and a nodule in the same location. Surgeon: Abigail Dominguez Operative Notes Findings: Small subcutaneous nodule Specimen(s): other (Scan and associated subcutaneous nodule) Estimated Blood Loss (mL): 1 Procedure in detail: The patient was brought to the operating room, placed supine on the operating table, and sequential compression devices were placed on both legs and turned on. Appropriate perioperative antibiotics were given. The abdomen was then prepped and draped in sterile fashion, and a surgical time-out was conducted. Deep sedation was given by Dr. Jimenez. At this point local anesthetic was injected using 0.25% Marcaine with epi, at the site of the planned incision. A 3cm transverse modified elliptical incision was then made in the skin using a 15 blade at the site of the palpable nodule and prior dissection site. Dissection was then carried down through the dermis and subcutaneous tissue using cautery, including the palpable nodule and associated scar from the prior attempted removal. The entire specimen was dissected out, and passed off the table for pathology. The remaining wound was palpated, and no nodules or other abnormalities were found within the subcutaneous fat or within the skin at this site. The skin was then closed with 3-0 Vicryl and subcuticular Monocryl 4-0. The skin edges were then sealed with Dermabond. This concluded the procedure. The patient was awakened from anesthesia and transferred onto the [facility]. The patient was then transferred to the postanesthesia care unit in stable condition. She tolerated the procedure well. Needle sponge and instrument counts were correct x2 at the end of the case. Complications: none Post-operative Condition: stable Disposition: PACU
--- NOTE | 2020-07-13 11:54 | SUR.OPER ---
Supine on padded OR bed, head on pillow, arms secured on padded arm boards at <90 degrees abduction, legs uncrossed, safety belt at thigh, tape over blanket over lower legs.
[2020-07-13] MEDS: CEFAZOLIN 1 GM VIAL 2 GM IV (11:58)
[2020-07-13] MEDS: BUPIVACAINE 0.25% W/ EPI 30 ML VIAL INJ (12:17)
[2020-07-13 12:37] VITALS: BP 102/64; PULSE 75; RESP 19; TEMP 36.6; O2SAT 99
[2020-07-13 12:41] VITALS: BP 119/66; PULSE 72; RESP 15; O2SAT 99
[2020-07-13 12:47] VITALS: BP 120/67; PULSE 65; RESP 14; O2SAT 98
[2020-07-13 12:52] VITALS: BP 117/61; PULSE 65; RESP 10; O2SAT 99
[2020-07-13 13:06] VITALS: BP 120/78; PULSE 77; RESP 14; TEMP 36.3; O2SAT 98
== END 2020-07-13 13:07 | disposition home or self-care (01) ==
PROVIDERS: PCP Family Medicine; Referring Provider Surgery; Visit Provider Surgery
PROC: (CPT 11403; principal; 2020-07-13 12:15)
DX: L73.9 Follicular disorder, unspecified (principal); R10.9 Unspecified abdominal pain
CPT/HCPCS: 11403; 36415; 81025; J0690; J2704; J3010

== ENCOUNTER 2020-08-20 06:21 | Emergency (ER) | payer OTHER, MEDICAID, SELFPAY ==
[2020-08-20 08:00] VITALS: BMI 34.4
--- NOTE | 2020-08-20 08:13 | DI.RAD.S_ITS ---
PROCEDURE: XR HIP W PEL IF DONE RT 2V INDICATIONS: pain/pressure TECHNIQUE: AP pelvis with lateral view(s) of the right hip(s). COMPARISON: [facility], , XR HIP W PEL IF DONE RT 2V, 10/15/2019, 15:56. FINDINGS: Bones: No acute fracture. Mild bilateral hip osteoarthritis. Spurring at the anterior superior iliac spine, left much greater than right.. Soft tissues: The visualized bowel gas pattern is normal. No suspicious soft tissue calcifications. IMPRESSION: Mild bilateral hip osteoarthritis. No interval change since 10/15/19. If the patient's pain or other symptoms persist, consider further evaluation with MRI Dictated by: Roshan Cota M.D. on 08/20/2020 at 9:18 Approved by: Roshan Cota M.D. on 08/20/2020 at 9:20
--- NOTE | 2020-08-20 08:41 | ED_ITS ---
HPI - Extremity Problem General Chief complaint: Extremity Problem,Nontraumatic Stated complaint: RIGHT HIP PAIN Time Seen by Provider: 08/20/20 08:16 Source: patient Mode of arrival: Ambulatory Limitations: no limitations History of Present Illness HPI Narrative: Patient is a 39-year-old female who presents with right hip pain she says is been off and on for a while but got significantly worse yesterday. She feels like it clicks and may give out on her. She denies any injury. She has a history of fibromyalgia but this is not feel like fibromyalgia. She denies numbness tingling or weakness no fever or chills. She has taken Tylenol and ibuprofen without any issue MD Complaint: extremity pain Onset (ago): day(s) Related Data Previous Rx's Medication Instructions Recorded ketorolac 10 mg PO TID PRN #10 tab 08/20/20 Allergies Allergy/AdvReac Type Severity Reaction Status Date / Time Penicillins Allergy Intermediate nausea and Verified 07/23/20 13:10 itching. sulfamethoxazole Allergy Mild Hives Verified 07/23/20 13:10 [From ] trimethoprim [From ] Allergy Mild hives Verified 07/23/20 13:10 Review of Systems Review of Systems Narrative: GENERAL: Denies chills, fatigue, malaise, fever, sweats, travel HEENT: Denies sinus pain, ear pain, sore throat, difficulty swallowing, neck pain RESPIRATORY: Denies dyspnea, cough, wheezing, hemoptysis, sputum. CARDIOVASCULAR: Denies chest pain, palpitations, orthopnea, edema GASTROINTESTINAL: Denies nausea, vomiting, abdominal pain, diarrhea, constipation, melena. : Denies dysuria, frequency, incontinence, hematuria, urinary retention, flank pain. MUSCULOSKELETAL: See HPI SKIN: No rash, no erythema, no pruritus NEUROLOGIC: Denies weakness, dizziness, headache, numbness, change in speech, confusion PSYCHIATRIC: No concerning psychosocial issues. 12 point review of systems is negative except for those stated above and HPI Patient History Medical History Abnormal Pap smear of cervix Acne ADHD Anxiety Chicken pox Chronic back pain Depression Depression with anxiety Eczema Family history of fibromyalgia Fibromyalgia Fractures Headache Human papilloma virus Irregular menstrual cycle Migraines Neoplasm of uncertain behavior Obesity Overactive bladder (~2008) Painful menstrual periods Plantar warts Post traumatic stress disorder (PTSD) Vertigo (~2017) Surgical History Anesthesia History of surgery (~2013) History of tonsillectomy and adenoidectomy History of tubal ligation (~08/2008) Family History Father Bladder cancer Diabetes mellitus Atrial fibrillation Hypertension Mother Heart disease Hypertension Atrial fibrillation Brother Hyperlipidemia Hypertension Grandmother Stroke Social History marital status: unmarried,living together number of children: 2 household members: significant other and children lives independently: Yes education level: college occupational status: employed Smoking Status: Former smoker alcohol intake: current substance use type: does not use Smoking Status: Former smoker tobacco type: vaping alcohol intake frequency: holidays/special occasions only Substance Use Type: does not use Exam Initial Vital Signs Initial Vital Signs: Vital Signs Pulse Rate 75 08/20/20 10:01 Respiratory Rate 18 08/20/20 10:01 Blood Pressure 135/70 08/20/20 10:01 Pulse Oximetry 99 08/20/20 10:01 GENERAL: Well-appearing, well-nourished and in no acute distress. CARDIOVASCULAR: peripheral pulses in tact, cap refill <2 sec RESPIRATORY: No respiratory distress, speaks in full sentences without difficulty EXTREMITIES: Right hip pain to palpation no swelling or erythema is couple to flex extend internal and external rotation distal pedal pulse intact NEUROLOGICAL: Cranial nerves II through XII grossly intact. Normal gait and speech. SKIN: Warm, dry, no petechiae, no rashes or lesions. Course Orders Ordered: Discontinued Medications Ketorolac Tromethamine (Ketorolac 30 Mg/Ml Vial) 30 mg IM NOW ONE Stop: 08/20/20 08:56 Last Admin: 08/20/20 09:06 Dose: 30 mg Documented by: MISTI MDM - Extremity (Nontraumatic) Imaging Data Extremity x-ray #1: Radiologist's Impression: PROCEDURE: XR HIP W PEL IF DONE RT 2V INDICATIONS: pain/pressure TECHNIQUE: AP pelvis with lateral view(s) of the right hip(s). COMPARISON: [facility], [facility], XR HIP W PEL IF DONE RT 2V, 10/15/2019, 15:56. FINDINGS: Bones: No acute fracture. Mild bilateral hip osteoarthritis. Spurring at the anterior superior iliac spine, left much greater than right.. Soft tissues: The visualized bowel gas pattern is normal. No suspicious soft tissue calcifications. IMPRESSION: Mild bilateral hip osteoarthritis. No interval change since 10/15/19. If the patient's pain or other symptoms persist, consider further evaluation with MRI Dictated by: Roshan Cota M.D. on 08/20/2020 at 9:18 MDM Narrative Medical decision making narrative: Patient is found have some mild arthritis on x-ray. No erythema or fevers no signs of septic joint. Possible bursitis. She has no back pain or radiation down her leg this is unlikely sciatica. Patient is feeling better after Toradol. Discharge Plan Departure Patient Disposition: Home Clinical Impression: Bursitis Qualifiers: Bursitis location: hip Hip bursitis location: unspecified Laterality: right Qualified Code(s): M70.71 - Other bursitis of hip, right hip Instructions: Bursitis Activity Restrictions/Additional Instructions: *You have been diagnosed with right hip pain *What to do: This may be inflammation of your joint your also found to have mild arthritis in both hips on your x-ray. Ice 20-30 minutes at a time, increase activity as tolerated use crutches or cane as needed *Continue to take medications as directed Tylenol 1000 mg every 6 hours if needed for [id number] pain Ketorolac 10 mg every 8 hours if needed for [id number] pain--to not take any NSAIDs such as ibuprofen, Aleve, Advil--> SENT TO [facility] *Follow up with your primary care provider in 2-3 days *Return to ER if you should have fever weakness, worsening pain or any new, worsening or concerning symptoms Prescriptions: New ketorolac 10 mg tablet 10 mg PO TID PRN (Reason: pain) Qty: 10 RF: 0 Referrals: Winsome Anderson DO [Primary Care Provider] -
[2020-08-20] MEDS: KETOROLAC 30 MG/ML VIAL IM (09:06)
[2020-08-20 10:01] VITALS: BP 135/70; PULSE 75; RESP 18; O2SAT 99
== END 2020-08-20 10:01 | disposition home or self-care (01) ==
PROVIDERS: Emergency Provider Emergency Medicine; PCP Family Medicine
DX: M70.71 Other bursitis of hip, right hip (principal)
CPT/HCPCS: 73502; 96372; 99283; J1885

== ENCOUNTER 2021-02-15 10:30 | Outpatient (RCR) | payer OTHER, MEDICAID, SELFPAY ==
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
--- NOTE | 2021-01-18 16:02 | PT.OPPOC ---
Physical, Occupational & Speech Therapy At [facility] Current Diagnoses Pain in right shoulder (01/18/21) Visit Care Team Role Provider Type Winsome Anderson DO Attending Provider Physician Family Provider Primary Care Provider Referring Provider Specialty: Family Practice Address: [address] [place] [address], [facility] [place], [address] Email: [email or web address] Plan Of Care PT-OP-T Assessment and Plan Start: 01/15/21 15:25 Freq: Status: Active Protocol: Document 01/18/21 09:00 MB (Rec: 01/18/21 10:28 MB [id number]) Physical Therapy Assessment Rehab Potential Rehabilitation Potential Fair Evaluation Complexity Number of Personal Factors/Comorbidities 1-2 Number of Body Systems Impaired 1-2 Clinical Presentation at Evaluation Evolving Impairments Impairments Activity Tolerance,Functional Activities,Functional Mobility ,Pain,Posture,ROM,Sensation, Soft Tissue Mobility,Strength Other Impairments Personal factors include 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 Body systems affected include musculoskeletal and neuromuscular and possibly metabolic. Her clinical presentation is evolving. Other Concerns Fall Risk Yes, recent fall last week Goals 4 Certification Engineer Goal (LTG) Pt will report a 50% improvement in sleeping d/t improved right shoulder pain to improve restorative rest by 03/20/21. LTG Duration 8 weeks 3 Fdc Goal (LTG) Pt will perform progressive HEP with I including pelvic realignment, ROM, flexibility, strengthening, breathing, self-massage and relaxation exercises to improve range, pain and function of her right shoulder by 03/20/21. LTG Duration 8 weeks 2 Certification Engineer Goal (LTG) Pt will present with improved right shoulder AROM to at least 140 deg flexion and abduction to improve functional tasks overhead by . LTG Duration 8 weeks 1 Impairment QuickDASH score reflects 56.18 % impairment Certification Engineer Goal (LTG) Pt will present with an improved QuickDASH score to reflect no more 30% impairment to improve functional use of her right arm by 03/20/21. LTG Duration 8 weeks Assessment Summary Assessment Pt is a 40 y/o female presenting with history of fibromyalgia and progressive right shoulder pain, decreased ROM and function. 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 She presents with painful active ROM right shoulder in standing that is self-limited d/t pain. PT defers MMT right shoulder d/t limited and painful right shoulder ROM. Passive right shoulder ER and IR and abduction in hook lying are limited d/t pain, guarding and tightness. Pt will benefit from PT to improve range, pain, and strength. She may benefit from an orthopedist consult to assess underlying pathology. Long history of pain, fibromyalgia and pain in many joints are barriers to PT. Physical Therapy Plan Frequency and Duration Frequency of Treatment 2x/Week Duration of Treatment 8 weeks Plan of Care Start Date 01/18/21 Plan of Care End Date 03/20/21 Therapeutic Interventions Therapeutic Interventions Aquatic Therapy,Balance Training,Canalithic Repositioning,Home Exercise Program,Joint Mobilizations, Manual Therapy,Neuromuscular Re-education,Patient/Caregiver Education,Self-Care/Home Management,Soft Tissue Mobilization,Taping, Therapeutic Activities, Therapeutic Exercises Modalities Cold Pack/Ice Massage,Hot Packs Next Visit Focus/Plan Next Note Type Treatment Note Next Visit Plan Consider UBE, kids ball massage behind back, cane AAROM, breathing exercises, pelvic realignment exercises Plan of Care Dates Plan of Care Start Date 01/18/21 Plan of Care End Date 03/20/21 Electronically Signed by: Emilia Delacruz, PT 01/18/21 [id number] Please Sign and Return: I have reviewed this Plan of Care and certify that the skilled therapy services above are required to meet the patient?s needs. Physician Signature Date Printed Name and Credentials Clinical Instructor Signature Printed Name and Credentials
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
--- NOTE | 2021-01-29 07:27 | PT-OP ANOTE ---
Adilene Escalante will benefit from an orthopedic consult and likely diagnostics. Thank you, Emilia Delacruz, PT, DPT, CMTPT
--- NOTE | 2021-01-29 08:50 | PT-OP ANOTE ---
Pt called to cancel same day appt today due to not feeling well and mentioned family members have had flu like symptoms. AS[employer] DEVELOPER called pt as follow up to discuss PT wrote a note in EMR since last visit for ortho consult and asked pt to follow up with Dr Anderson's office via patient portal or calling the office if received and what Dr Anderson recommends for further assessment. Pt verbalized understanding and will follow up as recommended.
--- NOTE | 2021-01-29 08:50 | PT-OP ANOTE ---
Pt called to cancel same day PT appt today due to not feeling well and mentioned family members have had flu like symptoms. PEDIATRIC AUDIOLOGIST called pt as follow up to discuss PT wrote a note in EMR since last visit for ortho consult and asked pt to follow up with Dr Anderson's office via patient portal or calling the office if received and what Dr Anderson recommends for further assessment. Pt verbalized understanding and will follow up as recommended.
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
--- NOTE | 2021-02-11 08:57 | PT-OP ANOTE ---
Pt arrives 2 hours before appointment and sees SPACE CONTROL AGENT, who has an opening.
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
== END 2021-03-30 08:59 ==
LOC: PHYS 10:30
PROVIDERS: Family Provider Family Medicine; PCP Family Medicine; Referring Provider Family Medicine; Visit Provider Family Medicine
DX: M25.511 Pain in right shoulder (principal)
CPT/HCPCS: 97110; 97140; 97161; 97535

== ENCOUNTER 2021-02-19 22:21 | Emergency (ER) | payer OTHER, MEDICAID, SELFPAY ==
[2021-02-19 22:28] VITALS: BP 179/100; PULSE 82; RESP 16; TEMP 36.6; O2SAT 99; BMI 34.1
[2021-02-19] MEDS: KETOROLAC 30 MG/ML VIAL IM (22:47)
--- NOTE | 2021-02-19 22:51 | ED_ITS ---
HPI - Extremity Problem General Chief complaint: Extremity Problem,Nontraumatic Stated complaint: RT SHOULDER PAIN Time Seen by Provider: 02/19/21 22:42 Source: patient Mode of arrival: Ambulatory History of Present Illness HPI Narrative: Patient is a 40-year-old female who presents with chronic ongoing right shoulder pain. She has been in physical therapy for. He is taking 500 to a 1000 mg of Tylenol and sounds like 400 mg of ibuprofen without any relief. She does not like taking narcotics and does not want any. She is waiting for an outpatient MRI. She is a side sleeper she is frustrated with the pain. She has appointment with her PCP at a later date. She is using Lyrica as well. She denies numbness tingling or weakness. Just intense pain. No new injury. Related Data Previous Rx's Medication Instructions Recorded ketorolac 10 mg tablet 10 mg PO TID PRN #10 tab 08/20/20 pregabalin 150 mg capsule 150 mg PO BID #60 cap 01/26/21 lidocaine 5 % topical patch 1 patch TOPICAL DAILY PRN #30 ea 02/19/21 Allergies Allergy/AdvReac Type Severity Reaction Status Date / Time Penicillins Allergy Intermediate nausea and Verified 07/23/20 13:10 itching. sulfamethoxazole Allergy Mild Hives Verified 07/23/20 13:10 [From ] trimethoprim [From ] Allergy Mild hives Verified 07/23/20 13:10 Review of Systems Review of Systems Narrative: GENERAL: Denies chills,fever HEENT: Denies throat pain RESPIRATORY: Denies dyspnea, cough, wheezing CARDIOVASCULAR: Denies chest pain, palpitations GASTROINTESTINAL: Denies nausea, vomiting MUSCULOSKELETAL: See HPI SKIN: No rash, no laceration, no pruritus NEUROLOGIC: Denies weakness, dizziness, headache, numbness 8 point review of systems is negative except for those stated above and HPI Patient History Medical History (Updated 02/19/21 @ 23:01 by Alysha Delaney DO) Abnormal Pap smear of cervix Acne ADHD Anxiety Chicken pox Chronic back pain Depression Depression with anxiety Eczema Family history of coronary artery disease Family history of fibromyalgia Fibromyalgia Fractures Headache Human papilloma virus Irregular menstrual cycle Migraines Neoplasm of uncertain behavior Obesity Overactive bladder (~2008) Painful menstrual periods Plantar warts Post traumatic stress disorder (PTSD) Vertigo (~2017) Surgical History Anesthesia History of surgery (~2013) History of tonsillectomy and adenoidectomy History of tubal ligation (~08/2008) Family History Father Bladder cancer Diabetes mellitus Atrial fibrillation Hypertension Mother Heart disease Hypertension Atrial fibrillation Brother Hyperlipidemia Hypertension Grandmother Stroke Social History marital status: unmarried,living together number of children: 2 household members: significant other and children lives independently: Yes education level: college occupational status: employed Smoking Status: Former smoker alcohol intake: current substance use type: does not use Smoking Status: Former smoker tobacco type: vaping alcohol intake frequency: holidays/special occasions only Substance Use Type: does not use Exam Initial Vital Signs Initial Vital Signs: Vital Signs Temperature 97.9 F 02/19/21 22:28 Pulse Rate 82 02/19/21 22:28 Respiratory Rate 16 02/19/21 22:28 Blood Pressure 179/100 H 02/19/21 22:28 Pulse Oximetry 99 02/19/21 22:28 GENERAL: Well-appearing, well-nourished and in no acute distress. CARDIOVASCULAR: peripheral pulses in tact, cap refill <2 sec RESPIRATORY: No respiratory distress, speaks in full sentences without difficulty EXTREMITIES: Normal range of motion, no clubbing or edema. Neurovascularly intact. Right upper extremity shoulder at AC joint is tender to touch no significant swelling no clavicle step-off sensations of toys intact. Painful and decreased range of motion in all directions. Elbow joint is within normal limits wrist also within normal limits. Radial median and ulnar nerve distribution within normal limits. Distal radial pulse intact. NEUROLOGICAL: Cranial nerves II through XII grossly intact. Normal gait and speech. SKIN: Warm, dry, no petechiae, no rashes or lesions. Course Orders Ordered: Discontinued Medications Ketorolac Tromethamine (Ketorolac 30 Mg/Ml Vial) 30 mg IM NOW ONE Stop: 02/19/21 22:43 Last Admin: 02/19/21 22:47 Dose: 30 mg Documented by: MARIAMA Vital Signs Vital signs: Vital Signs - 8 hr 02/19/21 22:28 Temperature 97.9 F Pulse Rate 82 Respiratory Rate 16 Blood Pressure 179/100 H Pulse Oximetry 99 MDM - Extremity (Nontraumatic) MDM Narrative Medical decision making narrative: Patient has acute on chronic right shoulder pain. She has good outpatient follow-up she was previously in physical therapy awaiting MRI. At this time only needing pain control. No recent shoulder injury no need for further imaging. She has allergy to adhesive we talked about the lidocaine patch trying it on a small area of skin 1st. She understands. All questions have been answered. Discharge Plan Departure Patient Disposition: Home Clinical Impression: Acute pain of right shoulder Instructions: DI for Shoulder Pain Activity Restrictions/Additional Instructions: *You have been diagnosed with acute on chronic shoulder pain *What to do: At this time agree with outpatient MRI and possible orthopedics referral. *Continue to take medications as directed--> SENT TO [facility] [place] Tylenol 1000 mg every 6 hours Ibuprofen 600-800 mg every 8 hours Lidocaine patch for 12 hours only than his removed *Follow up with your primary care provider in 2-3 days or call [phone] *Return to ER if you should have increasing weakness, numbness tingling or pain or any new, worsening or concerning symptoms Prescriptions: New lidocaine 5 % adhesive patch,medicated 1 patch topical DAILY PRN (Reason: pain, moderate) Qty: 30 0RF Rx Instructions: leave on most painful area for up to 12 hrs No Action pregabalin 150 mg capsule 150 mg PO BID Qty: 60 2RF ketorolac 10 mg tablet 10 mg PO TID PRN (Reason: pain) Qty: 10 0RF Referrals: Winsome Anderson DO [Primary Care Provider] -
== END 2021-02-19 23:06 | disposition home or self-care (01) ==
PROVIDERS: Emergency Provider Emergency Medicine; Family Provider Family Medicine; PCP Family Medicine
DX: M25.511 Pain in right shoulder (principal); Z87.891 Personal history of nicotine dependence
CPT/HCPCS: 96372; 99283; J1885

== ENCOUNTER → 2021-05-06 16:04 | Outpatient (CLI) | payer OTHER, MEDICAID, SELFPAY ==
--- NOTE | 2021-05-06 | DI.MRI.S_ITS ---
PROCEDURE: MR SHOULDER RT WO CON INDICATIONS: pain in rt shoulder TECHNIQUE: Noncontrast oblique coronal T2 fast spin echo with fat saturation, oblique sagittal T1 spin echo and T2 fast spin echo with fat saturation, axial T1 spin echo and T2 fast spin echo with fat saturation through the shoulder. COMPARISON: [facility] [place], CR, XR SHOULDER 2+ VIEWS RIGHT, 04/13/2021, 14:28. FINDINGS: Image quality: Excellent. Rotator cuff: Tendinosis and low-grade bursal surface partial-thickness tear involving distal supraspinatus at its insertion on the humeral head is seen extending to musculotendinous junction. Distal infraspinatus tendinosis is seen. Distal subscapularis tendon is intact. No full-thickness rotator cuff tendon rupture. Sagittal images demonstrate no significant muscle atrophy. Bones and bursae: No bone marrow contusions or fractures. Mild to moderate acromioclavicular joint osteoarthritic changes are seen with downward osteophyte formation depressing on musculotendinous junction of supraspinatus. The acromion demonstrates conventional anatomy, without an os acromiale. No pathologic subacromial-subdeltoid or subcoracoid bursal fluid is present. Capsule and soft tissues: Focal area of signal abnormality involving superior anterior labrum at 1 to 2 o'clock position is seen suggestive of superior anterior labral tear. The long head of the biceps tendinosis is noted. The rotator interval appears normal, without fibrosis. The coracohumeral ligament is normal in thickness. IMPRESSION: 1. Tendinosis and low-grade bursal surface partial thickness tear involving distal supraspinatus extending to musculotendinous junction. Distal infraspinatus tendinosis. No full-thickness rotator cuff tendon rupture. 2. Mild to moderate acromioclavicular joint osteoarthritis. No fracture or dislocation. No marrow edema. No significant joint effusion or bursal fluid. 3. Finding is suggestive of focal superior anterior labral tear at 1 to 2 o'clock position. 4. Tendinosis involving proximal intra-articular portion of long head of biceps. Dictated by: Kushal Coles M.D. on 05/07/2021 at 8:32 Approved by: Kushal Coles M.D. on 05/07/2021 at 8:39
== END ==
PROVIDERS: Family Provider Family Medicine; PCP Family Medicine; Referring Provider Orthopaedic Surgery; Visit Provider Orthopaedic Surgery
DX: M75.111 Incomplete rotator cuff tear or rupture of right shoulder, not specified as traumatic (principal); M19.011 Primary osteoarthritis, right shoulder; M25.511 Pain in right shoulder
CPT/HCPCS: 73221

== ENCOUNTER 2021-08-29 19:16 | Emergency (ER) | payer OTHER, MEDICAID, SELFPAY ==
[2021-08-29] VITALS (7 sets, daily range): BP systolic 154–177; BP diastolic 82–109; PULSE 73–102; RESP 18; TEMP 36.8; O2SAT 97–100; BMI 35.2
[2021-08-29 19:55] LABS: Prothrombin Time 10.7 SECONDS (10.1-12.7)
--- NOTE | 2021-08-29 19:55 | ED_ITS ---
HPI - Abdominal Pain General Chief Complaint: Abdominal Pain Stated Complaint: ABD Pain Time Seen by Provider: 08/29/21 19:37 Source: patient Mode of arrival: Ambulatory History of Present Illness HPI narrative: 40-year-old female former smoker with noncontributory medical history presents with a chief complaint of episodes of left upper quadrant pain that seem to come and go without any specific pattern for the past 24 hours or so. She denies, as stated any obvious provocation or palliation, she denies any radiation. She denies nausea or vomiting. She has had no new medications or change in her diet. She denies any constipation or diarrhea. She has had no dysuria, frequency or urgency. Related Data Previous Rx's Medication Instructions Recorded lidocaine 5 % topical patch 1 patch topical DAILY PRN pain, 02/19/21 moderate #30 ea ondansetron 4 mg disintegrating 4 mg PO Q8H PRN nausea and 04/15/21 tablet vomiting #30 tabs sumatriptan succinate 50 mg tablet See Rx Instructions PO .COMPLEX 05/07/21 #20 tabs pregabalin 150 mg capsule 150 mg PO BID #60 caps 06/14/21 topiramate 50 mg tablet 50 mg PO DAILY #30 tabs 06/14/21 ondansetron 4 mg disintegrating 4 mg PO TID-QID PRN nausea and 08/29/21 tablet vomiting #10 tabs pantoprazole 40 mg tablet,delayed 40 mg PO DAILY #30 tabs 08/29/21 release (Protonix) Allergies Allergy/AdvReac Type Severity Reaction Status Date / Time Penicillins Allergy Intermediate nausea and Verified 07/23/20 13:10 itching. sulfamethoxazole Allergy Mild Hives Verified 07/23/20 13:10 [From ] trimethoprim [From ] Allergy Mild hives Verified 07/23/20 13:10 Review of Systems Review of Systems Narrative: GENERAL: Denies chills, fatigue, malaise, fever, sweats. HEENT: Denies sinus pain, ear pain, sore throat, difficulty swallowing, dizziness. RESPIRATORY: Denies dyspnea, cough, wheezing, hemoptysis, sputum. CARDIOVASCULAR: Denies chest pain, palpitations, orthopnea, edema, GASTROINTESTINAL: See HPI : Denies dysuria, frequency, incontinence, hematuria, urinary retention. MUSCULOSKELETAL: denies weakness, joint pain, or bony pain SKIN: Denies rash, skin lesions, or other NEUROLOGIC: Denies weakness, headache, numbness, change in speech, confusion, seizures, incoordination. PSYCHIATRIC: No concerning psychosocial issues. 12 point review of systems is negative except for those stated above Patient History Medical History Abnormal Pap smear of cervix Acne ADHD Anxiety Chicken pox Chronic back pain Depression Depression with anxiety Eczema Family history of coronary artery disease Family history of fibromyalgia Fibromyalgia Fractures Headache Human papilloma virus Irregular menstrual cycle Migraines Neoplasm of uncertain behavior Obesity Overactive bladder (~2008) Painful menstrual periods Plantar warts Post traumatic stress disorder (PTSD) Vertigo (~2017) Surgical History Anesthesia History of surgery (~2013) History of tonsillectomy and adenoidectomy History of tubal ligation (~08/2008) Family History Father Bladder cancer Diabetes mellitus Atrial fibrillation Hypertension Mother Heart disease Hypertension Atrial fibrillation Brother Hyperlipidemia Hypertension Grandmother Stroke Social History marital status: unmarried,living together number of children: 2 household members: significant other and children lives independently: Yes education level: college occupational status: employed Smoking Status: Former smoker alcohol intake: current substance use type: does not use Smoking Status: Former smoker tobacco type: vaping alcohol intake frequency: holidays/special occasions only Substance Use Type: does not use Exam Narrative Exam Narrative: GENERAL: [40] year old patient appears stated age. Well-developed patient, in mild distress. HEAD: Atraumatic. Normocephalic. EYES: Pupils equal round and reactive. Extraocular motions intact. No scleral icterus. No injection or drainage. ENT: Nose without bleeding, purulent drainage. Throat without erythema, tonsillar hypertrophy or exudate. Airway patent. NECK: Trachea midline. Non tender CARDIOVASCULAR: Regular rate and rhythm without murmurs, gallops, or rubs. RESPIRATORY: Clear to auscultation. Breath sounds equal bilaterally. No wheezes, rales, or rhonchi. GASTROINTESTINAL: Abdomen soft, moderately tender in the left upper quadrant without swelling, redness, no obvious change in bowel sounds nondistended. EXTREMITIES: No edema or joint tenderness. BACK: Nontender without deformity or crepitance. No flank tenderness. NEURO: AOx3. SKIN: No rash or erythema of visible areas Initial Vital Signs Initial Vital Signs: Vital Signs Pulse Rate 98 H 08/29/21 19:29 Blood Pressure 166/95 H 08/29/21 19:29 Pulse Oximetry 97 08/29/21 19:29 Course Orders Ordered: ED Orders 08/29/21 19:34 Complete Blood Count AUTO DIFF Stat Comprehensive Metabolic Panel Stat Lipase Stat Partial Thromboplastin Time Stat Prothrombin Time INR Stat 08/29/21 20:06 XR acute abdomen series Stat Vital Signs Vital signs: Vital Signs - 8 hr 08/29/21 19:31 08/29/21 19:42 08/29/21 19:29 Temperature 98.2 F Pulse Rate 102 H Respiratory Rate 18 Blood Pressure 177/109 H 166/95 H Pulse Oximetry 97 Oxygen Delivery Method Room Air 08/29/21 19:29 08/29/21 19:30 08/29/21 20:00 Temperature Pulse Rate 98 H 99 H 85 Respiratory Rate Blood Pressure Pulse Oximetry 97 97 98 Oxygen Delivery Method 08/29/21 20:50 08/29/21 20:51 08/29/21 20:51 Temperature Pulse Rate 83 73 Respiratory Rate Blood Pressure 154/82 H Pulse Oximetry 100 100 Oxygen Delivery Method MDM - Abdominal Pain Lab Data Result diagrams: 08/29/21 19:34 08/29/21 19:34 Labs: Lab Results 08/29/21 08/29/21 08/29/21 Range/Units 19:34 19:34 19:34 WBC 6.2 (4.5-11.0) X10^3/uL RBC 4.83 (4.0-5.2) X10^6/uL Hgb 13.8 (12.0-16.0) g/dL Hct 41.2 (36-46) % MCV 85.2 (80-100) fL MCH 28.6 (26-34) PG MCHC 33.6 (30-36) % RDW 13.3 (11.6-14.8) % Plt Count 297 (150-400) X10^3/uL Neut % (Auto) 52.0 (50-75) % Lymph % (Auto) 34.4 (25-40) % [place] % (Auto) 9.4 (3-14) % Eos % (Auto) 3.2 (2-4) % Baso % (Auto) 1.0 (0-2) % Neut # (Auto) 3200 (3028-9514) /uL Lymph # (Auto) 2100 (0126-4387) /uL [place] # (Auto) 600 (0-900) /uL Eos # (Auto) 200 (0-450) /uL Baso # (Auto) 100 (0-100) /uL PT 10.7 (10.1-12.7) SECONDS INR 1.0 (0.9-1.3) APTT 33 (26.4-36.2) SECONDS Sodium 141 (137-145) mmol/L Potassium 4.3 (3.4-5.1) mmol/L Chloride 107 (98-107) mmol/L Carbon Dioxide 24 (22-32) mmol/L BUN 14 (7-17) mg/dL Creatinine 0.72 (0.52-1.04) mg/dL Estimated GFR > 60 (>60) mL/min BUN/Creatinine Ratio 19.4 (6-22) Glucose 115 H (70-100) mg/dL Calcium 8.9 (8.4-10.2) mg/dL Total Bilirubin 0.4 (0.2-1.3) mg/dL AST 31 (14-36) IU/L ALT 23 (<35) IU/L Alkaline Phosphatase 70 (38-126) U/L Total Protein 7.6 (6.3-8.2) g/dL Albumin 4.4 (3.5-5.0) g/dL Globulin 3.2 (1.7-4.1) g/dL Albumin/Globulin Ratio 1.4 (1.0-2.8) Lipase 75 (23-300) U/L Point of care testing: Point of Care Testing Test Results Negative Urine Dip Bedside Urine Glucose Negative Bedside Urine Bilirubin - Negative Bedside Urine Ketone - Negative Urine Specific [place] 1.025 Bedside Urine Occult Blood - Negative Bedside Urine pH 6 Bedside Urine Protein - Negative Bedside Urine Urobilinogen - Negative Bedside Urine Nitrite - Negative Bedside Urine Leukocytes - Negative Esterase Imaging Data Abdominal x-ray: Radiologist's Impression: Close Chest/Abdomen X-ray (Signed) Norm Barreto - 08/29/21 Shoulder MRI (Signed) Kushal Coles - 05/06/21 Hip X-Ray (Signed) Roshan Cota - 08/20/[address] (Signed) Kushal Coles - 11/25/19 Hip X-Ray (Signed) CoatRoshan - 10/15/19 Knee X-Ray (Signed) Javid Cardenas - 11/18/18 Launch?[address] [address] XRay Report Signed Patient: Adilene Allen MR#: [id number] : 1980 Acct:[id number] Age/Sex: 40 / F Date of Service: 08/29/21 Loc: ED Accession Number: [id number] ?? Procedure: XR acute abdomen series Ordering Provider: Ford Escudero D.O. PROCEDURE:? XR ACUTE ABDOMEN SERIES ? INDICATIONS:? pain ? TECHNIQUE:? One view chest and two views of the abdomen were acquired.? ? COMPARISON:? None. ? FINDINGS:? ? Surgical changes and devices:? None.? ? Chest:? Lungs are clear.? Heart size is normal.? No pleural effusions.? No pneumoperitoneum.? ? Abdomen:? Bowel gas pattern is normal.? No suspicious calcifications.? Visualized solid organ contours appear normal.? ? Bones:? No suspicious bony lesions.? ? IMPRESSION:? No acute cardiopulmonary abnormalities or focal airspace disease. ? Dictated by: Norm Barreto M.D. on 08/29/2021 at 21:07 ? ? Approved by: Norm Barreto M.D. on 08/29/2021 at 21:08 ? MDM Narrative Medical decision making narrative: Multiple etiologies for patient's symptoms considered include, but not limited to: [Bowel obstruction versus kidney stone versus diverticulitis versus other Patient's symptoms improved over duration of stay with above-stated therapies. History, physical exam, labs, imaging, and response to therapies have been reassuring. Findings and discharge diagnosis discussed with patient/family followed by verbalization of understanding Return precautions discussed with patient/family whom verbalize understanding. Pain has been well controlled and patient is tolerating oral hydration. Discharge Plan Departure Patient Disposition: Home Clinical Impression: Abdominal pain Instructions: DI for Abdominal Pain-Adult Activity Restrictions/Additional Instructions: *You have been diagnosed with [abdominal pain, likely due to gas and consti pation] * As we discussed your history and physical exam as well as labs and imaging are very reassuring. There is no evidence of any severe diagnoses that would require a specific or immediate intervention. *What to do: *Please continue to take your regular medications as directed. [x ] New medication prescriptions sent to your pharmacy: [[facility] ] *Please follow up with your primary care provider in 2-3 days, call for an appointment. Let them know you were seen in the Emergency Department and that we ask that you be seen in follow up. We will electronically transmit a record of today's note if your PCP is in our system *Please consider a clear liquid diet for the next 24-48 hours and then slowly advance to regular as tolerated. Also, try to avoid alcohol, nicotine, caffeine, spicy, acidic or fatty foods as this may worsen your symptoms *If you do not have a primary care provider please contact the [facility] Resource line at [phone]. They will ask some questions about your medical history and help get you set up with a doctor in the community. *Return to Emergency Department if you should have any new, worsening or concerning symptoms, such as [fever greater than 101 F, shaking chills, worsening pain, persistent vomiting or other bothersome symptoms] Prescriptions: New pantoprazole [Protonix] 40 mg tablet,delayed release (DR/EC) 40 mg PO DAILY Qty: 30 0RF ondansetron 4 mg tablet,disintegrating 4 mg PO TID-QID PRN (Reason: nausea and vomiting) Qty: 10 0RF No Action ondansetron 4 mg tablet,disintegrating 4 mg PO Q8H PRN (Reason: nausea and vomiting) Qty: 30 0RF sumatriptan succinate 50 mg tablet See Rx Instructions PO .COMPLEX Qty: 20 0RF Rx Instructions: take 1 tab at onset of headache; if no relief may repeat 1 tab after at least 2 hrs; max = 4 tabs/24 hr PO topiramate 50 mg tablet 50 mg PO DAILY Qty: 30 1RF pregabalin 150 mg capsule 150 mg PO BID Qty: 60 2RF lidocaine 5 % adhesive patch,medicated 1 patch topical DAILY PRN (Reason: pain, moderate) Qty: 30 0RF Rx Instructions: leave on most painful area for up to 12 hrs Referrals: Winsome Anderson DO [Primary Care Provider] - Visit Report Forms: Patient Portal/API
[2021-08-29 19:58] LABS: PTT Partial Thromboplastin Tim 33 SECONDS (26.4-36.2)
[2021-08-29 20:01] LABS: Alanine Aminotransferase 23 IU/L (<35); Albumin 4.4 g/dL (3.5-5.0); Albumin Globulin Ratio 1.4 (1.0-2.8); Alkaline Phosphatase 70 U/L (38-126); Aspartate Aminotransferase 31 IU/L (14-36); BUN Creatinine Ratio 19.4 (6-22); Bilirubin Total 0.4 mg/dL (0.2-1.3); Blood Urea Nitrogen 14 mg/dL (7-17); Calcium 8.9 mg/dL (8.4-10.2); Carbon Dioxide 24 mmol/L (22-32); Chloride 107 mmol/L (98-107); Estimated Glomerular Filt Rate > 60 mL/min (>60); Globulin 3.2 g/dL (1.7-4.1); Glucose 115 mg/dL (70-100); HEMOLYSIS 19 (0-50); Lipase 75 U/L (23-300); Potassium 4.3 mmol/L (3.4-5.1); Sodium 141 mmol/L (137-145); Total Protein 7.6 g/dL (6.3-8.2)
[2021-08-29 20:03] LABS: Add Manual Diff / Slide Review NO; Basophils Absolute Auto 100 /uL (0-100); Eosinophils Absolute Auto 200 /uL (0-450); Eosinophils Percent Auto 3.2 % (2-4); Hematocrit 41.2 % (36-46); Hemoglobin 13.8 g/dL (12.0-16.0); Lymphocytes Absolute Auto 2100 /uL (1100-4500); Lymphocytes Percent Auto 34.4 % (25-40); Mean Corpuscular HGB Conc 33.6 % (30-36); Mean Corpuscular Hemoglobin 28.6 PG (26-34); Mean Corpuscular Volume 85.2 fL (80-100); Monocytes Absolute Auto 600 /uL (0-900); Monocytes Percent Auto 9.4 % (3-14); Neutrophils Absolute Auto 3200 /uL (1500-7000); Platelet Count 297 X10^3/uL (150-400); Red Blood Cell Count 4.83 X10^6/uL (4.0-5.2); Red Cell Distribution Width 13.3 % (11.6-14.8); White Blood Cell Count 6.2 X10^3/uL (4.5-11.0)
--- NOTE | 2021-08-29 20:06 | DI.RAD.S_ITS ---
PROCEDURE: XR ACUTE ABDOMEN SERIES INDICATIONS: pain TECHNIQUE: One view chest and two views of the abdomen were acquired. COMPARISON: None. FINDINGS: Surgical changes and devices: None. Chest: Lungs are clear. Heart size is normal. No pleural effusions. No pneumoperitoneum. Abdomen: Bowel gas pattern is normal. No suspicious calcifications. Visualized solid organ contours appear normal. Bones: No suspicious bony lesions. IMPRESSION: No acute cardiopulmonary abnormalities or focal airspace disease. Dictated by: Norm Barreto M.D. on 08/29/2021 at 21:07 Approved by: Norm Barreto M.D. on 08/29/2021 at 21:08
== END 2021-08-29 21:32 | disposition home or self-care (01) ==
PROVIDERS: Emergency Provider Emergency Medicine; Family Provider Family Medicine; PCP Family Medicine
DX: R10.12 Left upper quadrant pain (principal)
CPT/HCPCS: 36415; 74022; 80053; 81003; 81025; 83690; 85025; 85610; 85730; 99284

== ENCOUNTER → 2021-12-24 18:17 | Outpatient (CLI) | payer OTHER, MEDICAID, SELFPAY ==
--- NOTE | 2021-12-24 18:21 | DI.RAD.S_ITS ---
PROCEDURE: XR RIBS LT MIN 3V W CXR1V INDICATIONS: Left rib pain TECHNIQUE: 2 views of the left ribs were acquired, along with a single view chest. COMPARISON: None. FINDINGS: Surgical changes and devices: None. Bones and chest wall: No fractures or dislocations. No suspicious bony lesions. Overlying soft tissues appear unremarkable. Lungs and pleura: No pleural effusions or pneumothorax. Lungs appear clear. Mediastinum: Mediastinal contours appear normal. Heart size is normal. IMPRESSION: No acute displaced rib fracture visualized. No pneumothorax. CT of the chest could be obtained if clinically indicated. Dictated by: Michael Holloway M.D. on 12/24/2021 at 20:56 Approved by: Michael Holloway M.D. on 12/24/2021 at 20:58
== END ==
PROVIDERS: Family Provider Family Medicine; PCP Family Medicine; Referring Provider Registered Nurse; Visit Provider Registered Nurse
DX: R07.81 Pleurodynia (principal)
CPT/HCPCS: 71101

== ENCOUNTER → 2022-02-26 10:48 | Outpatient (CLI) | payer OTHER, MEDICAID, SELFPAY ==
[2022-02-26 11:50] LABS: COVID-19 CEPHEID 4-PLEX PCR Negative (Negative); Influenza A - CEPHEID Flu A NEGATIVE (NEGATIVE); Influenza B - CEPHEID Flu B NEGATIVE (NEGATIVE); Respiratory Syncytial Virus Negative (Negative)
== END ==
PROVIDERS: Family Provider Family Medicine; PCP Family Medicine; Visit Provider Physician Assistant Medical
DX: R05.1 Acute cough (principal)
CPT/HCPCS: 0241U

== ENCOUNTER → 2022-03-04 13:06 | Outpatient (CLI) | payer OTHER, MEDICAID, SELFPAY ==
[2022-03-04 14:34] LABS: COVID-19 CEPHEID 4-PLEX PCR Negative (Negative); Influenza A - CEPHEID Flu A NEGATIVE (NEGATIVE); Influenza B - CEPHEID Flu B NEGATIVE (NEGATIVE); Respiratory Syncytial Virus Negative (Negative)
== END ==
PROVIDERS: Family Provider Family Medicine; PCP Family Medicine; Visit Provider Nurse Practitioner Family
DX: R09.81 Nasal congestion (principal)
CPT/HCPCS: 0241U

== ENCOUNTER → 2022-05-06 09:06 | Outpatient (CLI) | payer OTHER, MEDICAID, SELFPAY ==
[2022-05-06 11:40] LABS: Add Manual Diff / Slide Review NO; Basophils Absolute Auto 0 /uL (0-100); Basophils Percent Auto 0.7 % (0-2); Eosinophils Absolute Auto 100 /uL (0-450); Eosinophils Percent Auto 2.4 % (2-4); Hematocrit 41.2 % (36-46); Hemoglobin 13.7 g/dL (12.0-16.0); Lymphocytes Absolute Auto 1900 /uL (1100-4500); Lymphocytes Percent Auto 40.1 % (25-40); Mean Corpuscular HGB Conc 33.2 % (30-36); Mean Corpuscular Hemoglobin 28.3 PG (26-34); Mean Corpuscular Volume 85.3 fL (80-100); Monocytes Absolute Auto 300 /uL (0-900); Monocytes Percent Auto 5.9 % (3-14); Neutrophils Absolute Auto 2500 /uL (1500-7000); Neutrophils Percent Auto 50.9 % (50-75); Platelet Count 253 X10^3/uL (150-400); Red Blood Cell Count 4.84 X10^6/uL (4.0-5.2); Red Cell Distribution Width 13.4 % (11.6-14.8); White Blood Cell Count 4.9 X10^3/uL (4.5-11.0)
[2022-05-06 12:07] LABS: Alanine Aminotransferase 25 IU/L (<35); Albumin 4.4 g/dL (3.5-5.0); Albumin Globulin Ratio 1.5 (1.0-2.8); Alkaline Phosphatase 67 U/L (38-126); Aspartate Aminotransferase 23 IU/L (14-36); BUN Creatinine Ratio 23.4 (6-22); Bilirubin Total 0.3 mg/dL (0.2-1.3); Blood Urea Nitrogen 15 mg/dL (7-17); Calcium 8.8 mg/dL (8.4-10.2); Carbon Dioxide 24 mmol/L (22-32); Chloride 105 mmol/L (98-107); Estimated Glomerular Filt Rate > 60 mL/min (>60); Glucose 113 mg/dL (70-100); HEMOLYSIS < 15 (0-50); Potassium 4.7 mmol/L (3.4-5.1); Sodium 138 mmol/L (137-145); Total Protein 7.4 g/dL (6.3-8.2)
[2022-05-06 12:30] LABS: TSH w/ Reflex to FT4 1.04 uIU/mL (0.47-4.68)
[2022-05-06 19:18] LABS: Adenovirus F 40/41 Not Detected (Not Detect); Astrovirus Not Detected (Not Detect); Campylobacter Not Detected (Not Detect); Clostridium difficile toxin AB Not Detected (Not Detect); Cryptosporidium Not Detected (Not Detect); Cyclospora cayetanensis Not Detected (Not Detect); Entamoeba histolytica Not Detected (Not Detect); Enteroaggregative E.coli Not Detected (Not Detect); Enteropathogenic E.coli Not Detected (Not Detect); Enterotoxigenic E.coli It/st Not Detected (Not Detect); Giardia lamblia Not Detected (Not Detect); Norovirus GI/GII Not Detected (Not Detect); Plesiomonsa shigelloides Not Detected (Not Detect); Rotavirus A Not Detected (Not Detect); Salmonella Not Detected (Not Detect); Sapovirus Not Detected (Not Detect); Shiga-like toxin-prod E.coli Not Detected (Not Detect); Shigella/Enteroinvasive E.coli Not Detected (Not Detect); Vibrio Not Detected (Not Detect); Vibrio cholerae Not Detected (Not Detect); Yersinia enterocolitica Not Detected (Not Detect)
[2022-05-12 09:14] LABS: H. Pylori Antigen Stool Negative (Negative)
== END ==
PROVIDERS: Family Provider Family Medicine; PCP Family Medicine; Referring Provider Family Medicine; Visit Provider Family Medicine
DX: R10.13 Epigastric pain (principal); R19.5 Other fecal abnormalities
CPT/HCPCS: 36415; 80053; 84443; 85025; 87338; 87507

== ENCOUNTER → 2022-05-06 15:41 | Outpatient (CLI) | payer OTHER, MEDICAID, SELFPAY ==
--- NOTE | 2022-05-06 15:43 | DI.US.S_ITS ---
PROCEDURE: US ABDOMEN LIMITED INDICATIONS: RUQ/EPIGASTRIC PAIN TECHNIQUE: Real-time focused scanning was performed of the abdomen, with image documentation. COMPARISON: None. FINDINGS: The liver appears normal in size and echotexture, the gallbladder also appears normal. The bile ducts are not distended and there is no suspicion for common duct calculus. The pancreas visualized appears normal. IMPRESSION: Normal limited right upper quadrant ultrasound. Source of current pain is not seen. Dictated by: Alen Alonzo M.D. on 05/06/2022 at 16:48 Approved by: Alen Alonzo M.D. on 05/06/2022 at 16:49
== END ==
PROVIDERS: Family Provider Family Medicine; PCP Family Medicine; Referring Provider Family Medicine; Visit Provider Family Medicine
DX: R10.13 Epigastric pain (principal); R19.5 Other fecal abnormalities
CPT/HCPCS: 36415; 76705; 80053; 84443; 85025; 87338; 87507

== ENCOUNTER 2022-06-20 20:11 | Emergency (ER) | payer OTHER, MEDICAID, SELFPAY ==
[2022-06-20 20:20] VITALS: BP 155/85; PULSE 88; RESP 16; TEMP 36.6; O2SAT 95; BMI 34.4
--- NOTE | 2022-06-20 20:41 | ED.HA ---
HPI - Headache General Chief Complaint: Headache Stated Complaint: Migraine Time Seen by Provider: 06/20/22 20:32 Source: patient Mode of arrival: Ambulatory Limitations: no limitations History of Present Illness HPI Narrative: Patient is a 41-year-old female. Has a history of migraine headaches. Actually has migraine headaches on a fairly regular basis. She does have sumatriptan at home that she takes for them. States this morning she started to develop 1 of her normal headaches. It is frontal headache. She did take her sumatriptan without any improvement. No history of trauma. It has been quite sometime since she has had to come to the emergency department because of headache. She does not see a headache specialist. Related Data Previous Rx's Medication Instructions Recorded lidocaine 5 % topical patch 1 patch topical DAILY PRN pain, 02/19/21 moderate #30 ea sumatriptan succinate 50 mg tablet See Rx Instructions PO .COMPLEX 04/11/22 #20 tabs ondansetron 4 mg disintegrating See Rx Instructions .Route 05/23/22 tablet .COMPLEX #30 tabs pantoprazole 40 mg tablet,delayed 40 mg PO DAILY #30 tabs 06/08/22 release Allergies Allergy/AdvReac Type Severity Reaction Status Date / Time Penicillins Allergy Intermediate nausea and Verified 06/20/22 20:23 itching. sulfamethoxazole Allergy Mild Hives Verified 06/20/22 20:23 [From ] trimethoprim [From ] Allergy Mild hives Verified 06/20/22 20:23 Review of Systems Constitutional Constitutional: Reports system reviewed and no additional complaints, except as documented Eyes Eyes: Reports system reviewed and no additional complaints, except as documented ENT Ears, Nose, Mouth, and Throat: Reports system reviewed and no additional complaints, except as documented Integumentary/Breasts Skin/Breast: Reports system reviewed and no additional complaints, except as documented Hematologic/Lymphatic On Anticoagulants: No Patient History Medical History Abnormal Pap smear of cervix Acne ADHD Anxiety Chicken pox Chronic back pain Depression Depression with anxiety Eczema Family history of coronary artery disease Family history of fibromyalgia Fibromyalgia Fractures Headache Human papilloma virus Irregular menstrual cycle Migraines Neoplasm of uncertain behavior Obesity Overactive bladder (~2008) Painful menstrual periods Plantar warts Post traumatic stress disorder (PTSD) Vertigo (~2017) Surgical History Anesthesia History of surgery (~2013) History of tonsillectomy and adenoidectomy History of tubal ligation (~08/2008) Family History Father Bladder cancer Diabetes mellitus Atrial fibrillation Hypertension Mother Heart disease Hypertension Atrial fibrillation Brother Hyperlipidemia Hypertension Grandmother Stroke Social History marital status: unmarried,living together number of children: 2 household members: significant other and children lives independently: Yes education level: college occupational status: employed Smoking Status: Current every day smoker alcohol intake: current substance use type: does not use Smoking Status: Current every day smoker tobacco type: vaping alcohol intake frequency: holidays/special occasions only Substance Use Type: does not use Exam Initial Vital Signs Initial Vital Signs: Vital Signs Temperature 97.9 F 06/20/22 20:20 Pulse Rate 88 06/20/22 20:20 Respiratory Rate 16 06/20/22 20:20 Blood Pressure 155/85 H 06/20/22 20:20 Pulse Oximetry 95 06/20/22 20:20 Oxygen Delivery Method Room Air 06/20/22 20:20 Const General: cooperative, comfortable and No ill appearing HENMT Head: normal to inspection and normocephalic Resp Effort & Inspection: normal respiratory effort Cardio Rate: regular rate Skin General: no rashes or lesions noted Neuro General: patient alert, patient awake and moves all extremities Cognition: normal cognition Speech: speech normal Extrem General: normal to inspection and capillary refill normal Course Orders Ordered: Discontinued Medications Acetaminophen (Acetaminophen 325 Mg Tablet) 650 mg PO NOW ONE Stop: 06/20/22 20:35 Last Admin: 06/20/22 20:51 Dose: 650 mg Documented By: CARI Diphenhydramine HCl (Diphenhydramine 50 Mg/Ml Vial) 25 mg IV NOW ONE Stop: 06/20/22 20:33 Sodium Chloride (Normal Saline 0.9%) 1,000 mls @ 1,000 mls/hr IV BOLUS ONE Stop: 06/20/22 21:31 Last Admin: 06/20/22 21:02 Dose: 1,000 mls/hr Documented By: CARI Ketorolac Tromethamine (Ketorolac 30 Mg/Ml Vial) 30 mg IV NOW ONE Stop: 06/20/22 20:35 Last Admin: 06/20/22 21:02 Dose: 30 mg Documented By: AMU Metoclopramide HCl (Metoclopramide 10 Mg/2 Ml Inj) 10 mg IV NOW ONE Stop: 06/20/22 20:33 Last Admin: 06/20/22 21:02 Dose: 10 mg Documented By: AMU Vital Signs Vital signs: Vital Signs - 8 hr 06/20/22 20:20 06/20/22 22:00 Temperature 97.9 F Pulse Rate 88 65 Respiratory Rate 16 16 Blood Pressure 155/85 H 134/68 Pulse Oximetry 95 97 Oxygen Delivery Method Room Air Room Air MDM - Headache MDM Narrative Medical decision making narrative: Patient reports a vast improvement of her headache after medications here in the emergency department. I have low suspicion for meningitis. Low suspicion for intracranial hemorrhage. No indication for head CT. Her headache was not completely resolved but she stated that she did feel well enough to go home. I did advise that she talk with her primary doctor about a referral to see a headache specialist. She expressed understanding and agreement with plan. Discharge Plan Departure Patient Disposition: Home Clinical Impression: Migraine Instructions: DI for Migraine Activity Restrictions/Additional Instructions: I do recommend that you continue to take all of your medications as directed. Contact your primary doctor for follow-up. Return to the emergency department for any new or worsening symptoms. Prescriptions: No Action sumatriptan succinate 50 mg tablet See Rx Instructions PO .COMPLEX Qty: 20 0RF Rx Instructions: take 1 tab at onset of headache; if no relief may repeat 1 tab after at least 2 hrs; max = 4 tabs/24 hr PO ondansetron 4 mg tablet,disintegrating See Rx Instructions .ROUTE .COMPLEX Qty: 30 0RF Dose Instruction: DISSOLVE 1 TABLET IN THE MOUTH EVERY 8 HOURS NEEDED FOR NAUSEA AND VOMITING Rx Instructions: DISSOLVE 1 TABLET IN THE MOUTH EVERY 8 HOURS NEEDED FOR NAUSEA AND VOMITING pantoprazole 40 mg tablet,delayed release (DR/EC) 40 mg PO DAILY Qty: 30 1RF lidocaine 5 % adhesive patch,medicated 1 patch topical DAILY PRN (Reason: pain, moderate) Qty: 30 0RF Rx Instructions: leave on most painful area for up to 12 hrs Referrals: Winsome Anderson DO [Primary Care Provider] - Stand Alone Forms: Patient Portal/API
[2022-06-20] MEDS: ACETAMINOPHEN 325 MG TABLET 650 MG PO (20:51)
[2022-06-20] MEDS: KETOROLAC 30 MG/ML VIAL IV (21:02)
[2022-06-20] MEDS: SODIUM CHLORIDE 0.9% 1,000 ML 1000 ML IV (21:02)
[2022-06-20] MEDS: METOCLOPRAMIDE 10 MG/2 ML INJ IV (21:02)
[2022-06-20 22:00] VITALS: BP 134/68; PULSE 65; RESP 16; O2SAT 97
== END 2022-06-20 22:01 | disposition home or self-care (01) ==
PROVIDERS: Emergency Provider Emergency Medicine; Family Provider Family Medicine; PCP Family Medicine
DX: G43.109 Migraine with aura, not intractable, without status migrainosus (principal)
CPT/HCPCS: 96374; 96375; 99284; J1885; J2765

== ENCOUNTER → 2022-11-23 16:37 | Outpatient (CLI) | payer OTHER, MEDICAID, SELFPAY ==
[2022-11-23 18:24] LABS: C-Reactive Protein Quant 0.8 mg/dL (<1.0); Cholesterol 168 mg/dL (140-199); HDL Cholesterol 57 mg/dL (40-60); LDL Cholesterol Calculated 89 mg/dL (<100); Triglycerides 111 mg/dL (35-150)
[2022-11-23 18:28] LABS: Hemoglobin A1C% w Est Avg Glu 5.7 % (4.0-6.0)
[2022-11-23 18:42] LABS: Erythrocyte Sedimentation Rate 12 MM/HR (0-20)
== END ==
PROVIDERS: Family Provider Family Medicine; PCP Family Medicine; Referring Provider Family Medicine; Visit Provider Family Medicine
DX: E28.2 Polycystic ovarian syndrome (principal); E88.81 Metabolic syndrome and other insulin resistance; M25.50 Pain in unspecified joint
CPT/HCPCS: 36415; 80061; 83036; 85651; 86140

== ENCOUNTER 2023-03-03 23:50 | Emergency (ER) | payer OTHER, MEDICAID, SELFPAY ==
[2023-03-03 23:57] VITALS: BP 175/77; PULSE 80; RESP 17; TEMP 36.9; O2SAT 99; BMI 35.2
--- NOTE | 2023-03-04 00:01 | ED_ITS ---
HPI - Chest Pain General Chief Complaint: Chest Pain Stated Complaint: chest pain stopped diet pills recently Time Seen by Provider: 03/03/23 23:59 History of Present Illness HPI narrative: 42-year-old female who presents with midepigastric pain for 2 days. Discomfort is worse with inspiration. Patient reports developing a ?cold? over last 3 days with cough, congestion and general malaise. Patient states that she recently stopped taking a ?diet pill? thinks that his symptoms may be related. No medications used for symptom relief. Patient arrives via private vehicle, ambulatory awake, alert, in no apparent distress and maintaining her own airway. Related Data Previous Rx's Medication Instructions Recorded ondansetron 4 mg disintegrating See Rx Instructions .Route 11/23/22 tablet .COMPLEX #30 tabs pantoprazole 40 mg tablet,delayed 40 mg PO DAILY #30 tabs 11/23/22 release sumatriptan succinate 50 mg tablet See Rx Instructions PO .COMPLEX 11/23/22 #20 tabs metformin 500 mg tablet,extended 500 mg PO DAILY blood sugars #90 12/05/22 release 24hr tabs phentermine 37.5 mg tablet 37.5 mg PO DAILY #30 tabs 03/02/23 sucralfate 1 gram tablet 1 g PO QID 30 days #120 tabs 03/04/23 Allergies Allergy/AdvReac Type Severity Reaction Status Date / Time Penicillins Allergy Intermediate nausea and Verified 01/06/23 14:13 itching. sulfamethoxazole Allergy Mild Hives Verified 01/06/23 14:13 [From ] trimethoprim [From ] Allergy Mild hives Verified 01/06/23 14:13 Review of Systems Review of Systems Narrative: See HPI for pertinent positives, otherwise review of systems negative Patient History Medical History IFG (impaired fasting glucose) Family history of coronary artery disease Neoplasm of uncertain behavior Fibromyalgia Depression with anxiety Obesity Family history of fibromyalgia Plantar warts Eczema Acne Post traumatic stress disorder (PTSD) Depression Anxiety Migraines Headache ADHD Fractures Chronic back pain Chicken pox Vertigo (~2017) Painful menstrual periods Irregular menstrual cycle Human papilloma virus Abnormal Pap smear of cervix Overactive bladder (~2008) Surgical History Anesthesia History of surgery (~2013) History of tonsillectomy and adenoidectomy History of tubal ligation (~08/2008) Family History Father Bladder cancer Diabetes mellitus Atrial fibrillation Hypertension Mother Heart disease Hypertension Atrial fibrillation Brother Hyperlipidemia Hypertension Grandmother Stroke Social History marital status: unmarried,living together number of children: 2 household members: significant other and children lives independently: Yes education level: college occupational status: employed Smoking Status: Current every day smoker alcohol intake: current substance use type: does not use Smoking Status: Current every day smoker tobacco type: vaping alcohol intake frequency: holidays/special occasions only Substance Use Type: does not use Exam Initial Vital Signs Initial Vital Signs: Vital Signs Temperature 98.5 F 03/03/23 23:57 Pulse Rate 80 03/03/23 23:57 Respiratory Rate 17 03/03/23 23:57 Blood Pressure 175/77 H 03/03/23 23:57 Pulse Oximetry 99 03/03/23 23:57 Oxygen Delivery Method Room Air 03/03/23 23:57 Const General: cooperative, comfortable, well developed, well groomed, No acute distress, anxious, No diaphoretic, No ill appearing and well hydrated HENDC Head: normal to inspection, normocephalic and atraumatic Nose: external nose normal Eyes General: Yes appearance normal, both eyes and all related structures Neck Neck: normal visual inspection and full ROM Chest Chest: normal inspection of the chest, normal palpation of entire chest wall, No crepitus and tenderness Resp Effort & Inspection: normal respiratory effort, able to speak in complete sentences, normal respiratory pattern, not labored, no nasal flaring and no respiratory distress Cardio Rate: regular rate Rhythm: regular rhythm Pulses: radial pulses present GI Inspection: normal to inspection, non-distended and no visible herniation Other: Exam deferred Back/Spine/Pelvis Back: normal to inspection Skin General: no rashes or lesions noted and turgor normal Neuro General: patient alert, patient awake, patient oriented x3, gait normal and moves all extremities Extrem General: normal to inspection and full ROM Psych Appearance: grossly normal and well kempt Mental Status: mental status grossly normal Speech and Movement: speech and movement normal Course Orders Ordered: Discontinued Medications Al Hydrox/Mg Hydrox/Simethicone 20 ml/ Lidocaine HCl 15 ml 0 ml PO NOW ONE Stop: 03/04/23 00:13 Last Admin: 03/04/23 00:17 Dose: 35 ml Vital Signs Vital signs: Vital Signs - 8 hr 03/03/23 23:57 Temperature 98.5 F Pulse Rate 80 Respiratory Rate 17 Blood Pressure 175/77 H Pulse Oximetry 99 Oxygen Delivery Method Room Air MDM - Chest Pain Differential Diagnosis Differential diagnosis: Likely atypical chest pain, costochondritis, chest pain, biliary colic and other (Esophagitis, gastritis, viral syndrome) Lab Data Labs: Point of Care Testing Glucose POC 500 ECG Data Interpretation: 03/04/2023 at 12:04 a.m. normal sinus rhythm at 72 beats per minute, [place] interval 148 milliseconds, normal axis, premature ventricular contractions, Q-waves in V1/V2 suggestive of septal infarct, age undetermined, abnormal EKG MDM Narrative Medical decision making narrative: Patient presents with epigastric chest discomfort for 2 days. Patient otherwise appears clinically well and comfortable. Vital signs are within normal limits/non actionable. Patient is afebrile. Pulse oximetry 96% on room air, normal pulse oximetry. EKG is not suggestive of ACS significant conduction disturbance. Patient's clinical history is also suggestive of developing upper respiratory viral infection that appears to be unrelated to the patient's presumed gastritis/esophagitis. Gi cocktail given with improvement in symptoms. Patient will be treated for presumed gastritis and/or peptic ulcer(s) with sucralfate. PCP follow-up recommended within 1 week. Return precautions given. Patient discharged home in stable condition and able to ambulate well without assistance the time of discharge. Discharge Plan Departure Patient Disposition: Home Clinical Impression: Gastritis Qualifiers: Gastritis type: unspecified gastritis Chronicity: acute Gastritis bleeding: [facility] bleeding Qualified Code(s): K29.00 - Acute gastritis without bleeding Instructions: DI for Gastritis Prescriptions: New sucralfate 1 gram tablet 1 g PO QID 30 Days Qty: 120 0RF Continued phentermine 37.5 mg tablet 37.5 mg PO DAILY Qty: 30 0RF Rx Instructions: must administer 30 minutes before or 1-2 hours after breakfast pantoprazole 40 mg tablet,delayed release (DR/EC) 40 mg PO DAILY Qty: 30 11RF sumatriptan succinate 50 mg tablet See Rx Instructions PO .COMPLEX Qty: 20 11RF Rx Instructions: take 1 tab at onset of headache; if no relief may repeat 1 tab after at least 2 hrs; max = 4 tabs/24 hr PO ondansetron 4 mg tablet,disintegrating See Rx Instructions .ROUTE .COMPLEX Qty: 30 11RF Dose Instruction: DISSOLVE 1 TABLET IN THE MOUTH EVERY 8 HOURS NEEDED FOR NAUSEA AND VOMITING Rx Instructions: DISSOLVE 1 TABLET IN THE MOUTH EVERY 8 HOURS NEEDED FOR NAUSEA AND VOMITING metformin 500 mg tablet extended release 24hr 500 mg PO DAILY Qty: 90 3RF Referrals: Cristofer Tom DO [Primary Care Provider] - As soon as possible Stand Alone Forms: Patient Portal/API
[2023-03-04] MEDS: MAG HYDROX/ALUMINUM/SIMETH SUS 20 ML, LIDOCAINE VISCOUS 2% 15 ML PO (00:17)
== END 2023-03-04 00:51 | disposition home or self-care (01) ==
PROVIDERS: Emergency Provider Emergency Medicine; Family Provider Family Medicine; PCP Family Medicine
DX: K29.00 Acute gastritis without bleeding (principal); I49.3 Ventricular premature depolarization
CPT/HCPCS: 36415; 82962; 93005; 99283

== ENCOUNTER → 2023-08-21 12:00 | Outpatient (CLI) | payer OTHER, MEDICAID, SELFPAY ==
[2023-08-21 13:03] LABS: Hematocrit 38.6 % (36-46); Hemoglobin 13.1 g/dL (12.0-16.0); Mean Corpuscular HGB Conc 33.9 % (30-36); Mean Corpuscular Hemoglobin 29.2 PG (26-34); Mean Corpuscular Volume 86.1 fL (80-100); Platelet Count 268 X10^3/uL (150-400); Red Blood Cell Count 4.48 X10^6/uL (4.0-5.2); Red Cell Distribution Width 13.6 % (11.6-14.8); White Blood Cell Count 6.7 X10^3/uL (4.5-11.0)
[2023-08-21 13:11] LABS: Hemoglobin A1C% w Est Avg Glu 5.7 % (4.0-6.0)
[2023-08-21 13:39] LABS: Alanine Aminotransferase 16 IU/L (<35); Albumin 4.2 g/dL (3.5-5.0); Albumin Globulin Ratio 1.4 (1.0-2.8); Alkaline Phosphatase 59 U/L (38-126); Aspartate Aminotransferase 20 IU/L (14-36); BUN Creatinine Ratio 14.1 (6-22); Bilirubin Total 0.5 mg/dL (0.2-1.3); Blood Urea Nitrogen 12 mg/dL (7-17); Carbon Dioxide 28 mmol/L (22-32); Chloride 106 mmol/L (98-107); Cholesterol 169 mg/dL (140-199); Estimated Glomerular Filt Rate > 60 mL/min (>60); Glucose 109 mg/dL (70-100); HDL Cholesterol 64 mg/dL (40-60); HEMOLYSIS < 15 (0-50); LDL Cholesterol Calculated 80 mg/dL (<100); Lipase 58 U/L (23-300); Potassium 5.1 mmol/L (3.4-5.1); Sodium 138 mmol/L (137-145); Total Protein 7.2 g/dL (6.3-8.2); Triglycerides 123 mg/dL (35-150)
== END ==
PROVIDERS: Family Provider Family Medicine; PCP Family Medicine; Referring Provider Family Medicine; Visit Provider Family Medicine
DX: R10.13 Epigastric pain (principal); R10.11 Right upper quadrant pain; R73.01 Impaired fasting glucose; K29.60 Other gastritis without bleeding
CPT/HCPCS: 36415; 80053; 80061; 83036; 83690; 85027

== ENCOUNTER → 2023-08-23 07:47 | Outpatient (CLI) | payer OTHER, MEDICAID, SELFPAY ==
--- NOTE | 2023-08-23 07:48 | DI.US.S_ITS ---
PROCEDURE: US ABDOMEN COMPLETE INDICATIONS: RUQ and epigastric abd pain TECHNIQUE: Real-time scanning was performed of the abdominal and retroperitoneal organs, with image documentation. COMPARISON: [facility], US, US ABDOMEN LIMITED, 05/06/2022, 15:50. FINDINGS: Liver: Liver is normal in size and homogeneous in echotexture. Gallbladder: Gallbladder is normal in sonographic appearance without gallstones, gallbladder wall thickening, pericholecystic fluid, or abnormal sonographic Wheeler's. Biliary ducts: Intrahepatic bile ducts are non-dilated. Extrahepatic bile duct caliber measures 3 mm. Normal is 6-7 mm or less in diameter, or 10 mm or less post-cholecystectomy. Pancreas: Visualized portions of the pancreas are sonographically normal. Miscellaneous: No free abdominal fluid. IMPRESSION: Normal sonographic evaluation of the right upper quadrant. Dictated by: Norm Barreto M.D. on 08/23/2023 at 10:56 Approved by: Norm Barreto M.D. on 08/23/2023 at 10:58
== END ==
LOC: US 07:48
PROVIDERS: Family Provider Family Medicine; PCP Family Medicine; Referring Provider Family Medicine; Visit Provider Family Medicine
DX: R10.13 Epigastric pain (principal); R10.11 Right upper quadrant pain; R73.01 Impaired fasting glucose; K29.60 Other gastritis without bleeding
CPT/HCPCS: 76705

== ENCOUNTER 2023-10-19 12:47 | Day surgery (SDC) | payer OTHER, MEDICAID, SELFPAY ==
--- NOTE | 2023-10-19 | PATH_ITS ---
[facility] Accession Number: [id number] No. of containers..02 Tissue . 01 Material submitted: . PART A: duodenum - DUODENUM BIOPSY PART B: gastrointestinal site - ANTRUM BIOPSY . 01 Diagnosis: Part A: DUODENUM BIOPSY: Duodenal mucosa with no diagnostic alterations. No active inflammation and no evidence of celiac disease. . Part B: ANTRUM BIOPSY: Gastric mucosa with mild chronic inflammation. No Helicobacter organisms identified. No intestinal metaplasia, dysplasia, or malignancy identified. [facility] 10/24/2023 1605 Local . 01 Electronically signed: . Javid Pollock MD, Pathologist NPI- [id number] . 01 Gross description: . A. Received in formalin with two patient identifiers and duodenum, is a single gallo soft tissue fragment, 0.4 cm in greatest dimension. Submitted in A1. . B. Received in formalin with two patient identifiers and antrum, are three gallo soft tissue fragments, 0.3 to 0.4 cm in greatest dimension. Submitted in B1. ([id number]) /MRV 10/24/2023 1605 Local . 01 Microscopic: . Part B: ANTRUM BIOPSY: An immunohistochemical stain was performed to evaluate for Helicobacter organisms and is negative. The control stains appropriately. * This test was developed and its performance characteristics determined by [facility]. It has not been cleared or approved by the U.S. Food and Drug Administration. The FDA has determined that such clearance or approval is not necessary. This test is used for clinical purposes. It should not be regarded as investigational or for research. . 01 Pathologist provided ICD-10: K29.50 . 01 CPT . 234034, 378519, [id number] Specimen Comment: A courtesy copy of this report has been sent to [phone] Performed at: 01 [facility] [address], [place], [place] [id number] MD Javid Pollock MD Phone: [phone]
[2023-10-19] MEDS: LACTATED RINGERS 1,000 ML 42 ML IV (12:56)
[2023-10-19 13:06] VITALS: BP 145/85; PULSE 89; RESP 18; TEMP 36.8; O2SAT 97
--- NOTE | 2023-10-19 13:19 | P.HP_ITS ---
History of Present Illness History of Present Illness Date Patient Seen: 10/19/23 Time Patient Seen: 13:19 Chief complaint: EGD Narrative: Adilene is a 43-year-old woman with epigastric discomfort. See the office note for details. [facility] Medical History (Updated 10/19/23 @ 13:20 by Burke Garrido MD) IFG (impaired fasting glucose) Family history of coronary artery disease Neoplasm of uncertain behavior Fibromyalgia Depression with anxiety Obesity Family history of fibromyalgia Plantar warts Eczema Acne Post traumatic stress disorder (PTSD) Depression Anxiety Migraines Headache ADHD Fractures Chronic back pain Chicken pox Vertigo (~2017) Painful menstrual periods Irregular menstrual cycle Human papilloma virus Abnormal Pap smear of cervix Overactive bladder (~2008) Surgical History Anesthesia History of surgery (~2013) History of tonsillectomy and adenoidectomy History of tubal ligation (~08/2008) Family History Father Bladder cancer Diabetes mellitus Atrial fibrillation Hypertension Mother Heart disease Hypertension Atrial fibrillation Brother Hyperlipidemia Hypertension Grandmother Stroke Social History marital status: unmarried,living together number of children: 2 household members: significant other and children lives independently: Yes education level: college occupational status: employed Smoking Status: Current every day smoker alcohol intake: current substance use type: does not use Meds Home Medications and Allergies Home Medications Medication Instructions Recorded Confirmed Type phentermine 37.5 mg tablet 37.5 mg PO DAILY #30 tabs 07/19/23 10/19/23 Rx ondansetron 4 mg disintegrating See Rx Instructions .Route 08/17/23 10/19/23 Rx tablet .COMPLEX #30 tabs pantoprazole 40 mg tablet,delayed 40 mg PO DAILY #30 tabs 08/17/23 09/11/23 Rx release sucralfate 1 gram tablet 1 g PO QID #360 tabs 08/17/23 10/19/23 Rx Allergies Allergy/AdvReac Type Severity Reaction Status Date / Time Penicillins Allergy Intermediate nausea and Verified 10/19/23 12:59 itching. sulfamethoxazole Allergy Mild Hives Verified 10/19/23 12:59 [From OCTRA] trimethoprim [From ] Allergy Mild hives Verified 10/19/23 12:59 Exam Vital Signs (past 8 hours): - 10/19/23 13:06 Temperature 98.2 F Pulse Rate 89 Respiratory Rate 18 Blood Pressure 145/85 H Pulse Oximetry 97 Oxygen Delivery Method Room Air Oxygen Delivery Method Room Air Const General: No acute distress Resp Effort & Inspection: normal respiratory effort Assessment & Plan Assessment and plan (1) Epigastric pain: Status: Acute Plan We reviewed the risks and benefits of esophagogastroduodenoscopy and she would like to proceed. Time-Based Coding :: [TOTAL MINUTES] spent with patient and on the chart (including review of chart, obtaining history, exam, reviewing outside data, placing orders, documenting exam and treatment plan, and counseling patient) on [DATE].
[2023-10-19 13:43] VITALS: BP 120/77; PULSE 77; RESP 16; TEMP 36.8; O2SAT 98
--- NOTE | 2023-10-19 13:44 | PM.OP.EGD ---
Operative Date/Time/Diagnoses Date of procedure: 10/19/23 Time of procedure: 13:44 Pre-op diagnosis: Epigastric pain Post-op diagnosis: same Procedure & Clinicians Study performed: Esophagogastroduodenoscopy Same procedure as scheduled: Yes Surgeon: Bukre Garrido Procedure Notes Procedure in detail: Surgeon: Burke Garrido MD Anesthesia: Deneen Hu MD A timeout was performed. A bite blocked was placed. The patient was positioned in the left lateral decubitus position. Anesthesia was administered. The endoscope was inserted through the bite block and passed through the esophagus and stomach and into the duodenum. The duodenal mucosa appeared normal. Random biopsies were taken from the duodenal mucosa with cold forceps to rule out celiac disease. The scope was withdrawn into the duodenal bulb and no abnormalities were seen. The scope was withdrawn into the stomach. Mild antritis was noted and random biopsies were taken from the antrum using cold forceps. The rest of the stomach was normal. The scope was retroflexed and a small hiatal hernia was noted. The scope was withdrawn into the esophagus and no abnormalities were identified. The remainder of the esophagus was normal. The scope was withdrawn. The patient was awakened and brought to recovery. Sedation time: 7 minutes Findings: Mild antritis and small hiatal hernia Post-procedure Disposition: PACU
[2023-10-19 13:49] VITALS: BP 120/77; PULSE 76; RESP 16; O2SAT 98
[2023-10-19 13:59] VITALS: BP 120/70; PULSE 78; RESP 16; TEMP 36.2; O2SAT 98
== END 2023-10-19 14:10 | disposition home or self-care (01) ==
PROVIDERS: Family Provider Family Medicine; PCP Family Medicine; Referring Provider Surgery; Visit Provider Surgery
PROC: 0DJ08ZZ Inspection of Upper Intestinal Tract, Via Natural or Artificial Opening Endoscopic (ICD-10-PCS; CPT 43235; principal; 2023-10-19 13:30)
DX: R10.13 Epigastric pain (principal); K29.50 Unspecified chronic gastritis without bleeding; K44.9 Diaphragmatic hernia without obstruction or gangrene
CPT/HCPCS: 43239; J2704

== ENCOUNTER 2024-02-16 13:37 | Emergency (ER) | payer OTHER, SELFPAY ==
[2024-02-16 13:41] VITALS: BP 139/89; PULSE 100; RESP 16; TEMP 37.2; O2SAT 98; BMI 35.7
--- NOTE | 2024-02-16 14:16 | ED_ITS ---
HPI - URI/Sore Throat <Roxanne Nichole PA-C - Last Filed: 02/16/24 17:27> General Chief Complaint: Upper Respiratory Symptoms Stated Complaint: sent by PCP, HARPER, fatigue, sob, Body aches Time Seen by Provider: 02/16/24 14:16 Source: patient Mode of arrival: Ambulatory History of Present Illness HPI Narrative: Ms. Allen is a pleasant 43-year-old female with a past medical history of fibromyalgia who presents to the emergency department for URI symptoms x2 weeks. Patient states she was sick before but that resolved. However 2 weeks ago both of her and her daughter developed cough, fevers. Her daughter symptoms resolved but hers have worsened. Reports numerous symptoms including swollen lymph nodes in neck, sinus congestion, persistent cough, left-sided headache/sinus pressure sometimes associated with dizziness, fatigue, subjective fevers and chills. States that she is taken [id number] Mucinex which has not resolved the symptoms. 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 Denies recreational drug use but she does vape daily. Related Data Previous Rx's Medication Instructions Recorded phentermine 37.5 mg tablet 37.5 mg PO DAILY #30 tabs 07/19/23 ondansetron 4 mg disintegrating See Rx Instructions .Route 08/17/23 tablet .COMPLEX #30 tabs sucralfate 1 gram tablet 1 g PO QID #360 tabs 08/17/23 pantoprazole 40 mg tablet,delayed 40 mg PO DAILY #30 tabs 01/29/24 release Allergies Allergy/AdvReac Type Severity Reaction Status Date / Time Penicillins Allergy Intermediate nausea and Verified 02/16/24 13:41 itching. sulfamethoxazole Allergy Mild Hives Verified 02/16/24 13:41 [From ] trimethoprim [From ] Allergy Mild hives Verified 02/16/24 13:41 Review of Systems <Roxanne Nichole PA-C - Last Filed: 02/16/24 17:27> Review of Systems ROS Unobtainable: All systems reviewed & are unremarkable except as noted in HPI and below Patient History <Roxanne Nichole PA-C - Last Filed: 02/16/24 17:27> Medical History IFG (impaired fasting glucose) Family history of coronary artery disease Neoplasm of uncertain behavior Fibromyalgia Depression with anxiety Obesity Family history of fibromyalgia Plantar warts Eczema Acne Post traumatic stress disorder (PTSD) Depression Anxiety Migraines Headache ADHD Fractures Chronic back pain Chicken pox Vertigo (~2017) Painful menstrual periods Irregular menstrual cycle Human papilloma virus Abnormal Pap smear of cervix Overactive bladder (~2008) Surgical History Anesthesia History of surgery (~2013) History of tonsillectomy and adenoidectomy History of tubal ligation (~08/2008) Family History Father Bladder cancer Diabetes mellitus Atrial fibrillation Hypertension Mother Heart disease Hypertension Atrial fibrillation Brother Hyperlipidemia Hypertension Grandmother Stroke Social History marital status: unmarried,living together number of children: 2 household members: significant other and children lives independently: Yes education level: college occupational status: employed Smoking Status: Current every day smoker alcohol intake: current substance use type: does not use Smoking Status: Current every day smoker tobacco type: vaping alcohol intake frequency: holidays/special occasions only Exam <Roxanne Nichole PA-C - Last Filed: 02/16/24 17:27> Narrative Exam Narrative: GENERAL: 43 year old patient appears stated age. Well-developed patient, in no acute distress. HEAD: Atraumatic. Normocephalic. Sinus congestion/tenderness worse in left maxillary sinuses. EYES: Extraocular motions intact. No scleral icterus. No injection or drainage. ENT: Normal TMs bilaterally. Nose without bleeding, purulent drainage. Throat without erythema, tonsillar hypertrophy or exudate. Airway patent. NECK: Trachea midline. Cervical ROM intact. CARDIOVASCULAR: Regular rate and rhythm. RESPIRATORY: ?Nonlabored respirations. ?Speaking in clear, full sentences. Frequent dry cough. ?Clear to auscultation. Breath sounds equal bilaterally. No wheezes, rales, or rhonchi. ? NEURO: AOx3. ?Clear speech. ?Moves all 4 extremities appropriately. SKIN: No rash or erythema of visible areas Initial Vital Signs Initial Vital Signs: Vital Signs Temperature 98.9 F 02/16/24 13:41 Pulse Rate 100 H 02/16/24 13:41 Respiratory Rate 16 12/20/24 13:41 Blood Pressure 139/89 02/16/24 13:41 Pulse Oximetry 98 02/16/24 13:41 Oxygen Delivery Method Room Air 02/16/24 13:41 <Randolph Baker MD - Last Filed: 02/16/24 18:43> Initial Vital Signs Initial Vital Signs: Vital Signs Temperature 98.9 F 02/16/24 13:41 Pulse Rate 100 H 02/16/24 13:41 Respiratory Rate 16 02/16/24 13:41 Blood Pressure 139/89 02/16/24 13:41 Pulse Oximetry 98 02/16/24 13:41 Oxygen Delivery Method Room Air 02/16/24 13:41 Course <Roxanne Nichole PA-C - Last Filed: 02/16/24 17:27> Orders Ordered: ED Orders 02/16/24 14:47 XR chest 2V Stat 02/16/24 14:50 Ictotest Urine Stat Urine Culture Stat Urine Microscopic Stat 02/16/24 14:55 Respiratory Panel (Film Array) Stat Discontinued Medications Acetaminophen (Acetaminophen 325 Mg Tablet) 650 mg PO NOW ONE Stop: 02/16/24 14:48 Last Admin: 02/16/24 15:10 Dose: 650 mg Documented By: NICO Ketorolac Tromethamine (Ketorolac 30 Mg/Ml Vial) 30 mg IM NOW ONE Stop: 02/16/24 14:48 Last Admin: 02/16/24 15:10 Dose: 30 mg Documented By: NICO Vital Signs Vital signs: Vital Signs - 8 hr 02/16/24 13:41 02/16/24 15:00 02/16/24 16:34 Temperature 98.9 F 98.8 F 98 F Pulse Rate 100 H 100 H 85 Respiratory Rate 16 18 18 Blood Pressure 139/89 138/89 Pulse Oximetry 98 98 Oxygen Delivery Method Room Air <Randolph Baker MD - Last Filed: 02/16/24 18:43> Orders Ordered: ED Orders 02/16/24 14:47 XR chest 2V Stat 02/16/24 14:50 Ictotest Urine Stat Urine Culture Stat Urine Microscopic Stat 02/16/24 14:55 Respiratory Panel (Film Array) Stat Discontinued Medications Acetaminophen (Acetaminophen 325 Mg Tablet) 650 mg PO NOW ONE Stop: 02/16/24 14:48 Last Admin: 02/16/24 15:10 Dose: 650 mg Documented By: NICO Ketorolac Tromethamine (Ketorolac 30 Mg/Ml Vial) 30 mg IM NOW ONE Stop: 02/16/24 14:48 Last Admin: 02/16/24 15:10 Dose: 30 mg Documented By: NICO Vital Signs Vital signs: Vital Signs - 8 hr 02/16/24 13:41 02/16/24 15:00 02/16/24 16:34 Temperature 98.9 F 98.8 F 98 F Pulse Rate 100 H 100 H 85 Respiratory Rate 16 18 18 Blood Pressure 139/89 138/89 Pulse Oximetry 98 98 Oxygen Delivery Method Room Air MDM - URI/Sore Throat <Roxanne Nichole PA-C - Last Filed: 02/16/24 17:27> Lab Data Labs: Lab Results 02/16/24 02/16/24 Range/Units 14:50 14:55 Ur Bilirubin Confirm Negative (Negative) Urine RBC None seen (0-5/HPF) Urine WBC 0-1/hpf (0-5/HPF) Ur Squamous Epith Cells 1-5 /hpf (0-5/HPF) Calcium Oxalate Crystal Many H Urine Bacteria Few (2-10) H (None) Hyaline Casts 0-1/lpf (None) Urine Mucus 1+ H (Negative) Vol Urine Centrifuged 10ml (spun) Chlamy pneumoniae PCR Not detected (Not Detect) Adenovirus (PCR) Not detected (Not Detect) B. pertussis DNA (PCR) Not detected (Not Detect) B.parapertussis DNA PCR Not detected (Not Detecte) Coronavirus OC43 (PCR) Not detected (Not Detect) Coronavirus HKU1 (PCR) Not detected (Not Detect) Coronavirus 229E (PCR) Not detected (Not Detect) SARS-CoV-2 (PCR) Detected H (Not Detecte) Coronavirus NL63 (PCR) Not detected (Not Detect) Human Metapneumovir PCR Not detected (Not Detect) Influenza Type A (PCR) Not detected (Not Detect) Influenza Type B (PCR) Not detected (Not Detect) M. pneumoniae (PCR) Not detected (Not Detect) Parainfluenza 1 (PCR) Not detected (Not Detect) Parainfluenza 2 (PCR) Not detected (Not Detect) Parainfluenza 3 (PCR) Not detected (Not Detect) Parainfluenza 4 (PCR) Not detected (Not Detect) RSV (PCR) Not detected (Not Detect) Entero/Rhino (PCR) Not detected (Not Detect) Point of Care Testing Test Results Negative Urine Dip Bedside Urine Glucose Negative Bedside Urine Bilirubin + 1 Bedside Urine Ketone +/- 5 Urine Specific Carpenter 1.030 Bedside Urine Occult Blood - Negative Bedside Urine pH 5.5 Bedside Urine Protein +/- 15 Bedside Urine Urobilinogen - Negative Bedside Urine Nitrite - Negative Bedside Urine Leukocytes - Negative Esterase MDM Narrative Medical decision making narrative: 43-year-old female with a past medical history of fibromyalgia who presents to the emergency department for URI symptoms x2 weeks. Differential diagnosis includes but is not limited to sinusitis, viral URI, bacterial URI, pneumonia, bronchitis, mycoplasma pneumonia, UTI, etc. On exam the patient is in no acute distress, nontoxic appearing, afebrile. She does have a frequent dry cough and has subjective fever/chills right now. Lungs without wheezing or abnormal breath sounds. Throat without posterior oropharyngeal erythema or swelling. Due to the duration of the patient's symptoms and her clinical presentation, I do believe she warrants full viral respiratory panel to evaluate for possible mycoplasma pneumonia. We will also obtain chest x-ray, UA, hCG. We will treat subjective fevers and pain with Toradol and Tylenol. Patient feeling better after ER medications. Chest x-ray reveals no acute cardiopulmonary abnormality. Urine reveals calcium oxalate crystal but no signs of infection. Patient is positive for COVID. Out of range for Paxlovid. We discussed all results. Recommended rest, hydration, ibuprofen/Tylenol. Patient verbalized understanding of all information is agreeable to plan. She is stable for discharge home. <Randolph Baker MD - Last Filed: 02/16/24 18:43> Lab Data Labs: Lab Results 02/16/24 02/16/24 Range/Units 14:50 14:55 Ur Bilirubin Confirm Negative (Negative) Urine RBC None seen (0-5/HPF) Urine WBC 0-1/hpf (0-5/HPF) Ur Squamous Epith Cells 1-5 /hpf (0-5/HPF) Calcium Oxalate Crystal Many H Urine Bacteria Few (2-10) H (None) Hyaline Casts 0-1/lpf (None) Urine Mucus 1+ H (Negative) Vol Urine Centrifuged 10ml (spun) Chlamy pneumoniae PCR Not detected (Not Detect) Adenovirus (PCR) Not detected (Not Detect) B. pertussis DNA (PCR) Not detected (Not Detect) B.parapertussis DNA PCR Not detected (Not Detecte) Coronavirus OC43 (PCR) Not detected (Not Detect) Coronavirus HKU1 (PCR) Not detected (Not Detect) Coronavirus 229E (PCR) Not detected (Not Detect) SARS-CoV-2 (PCR) Detected H (Not Detecte) Coronavirus NL63 (PCR) Not detected (Not Detect) Human Metapneumovir PCR Not detected (Not Detect) Influenza Type A (PCR) Not detected (Not Detect) Influenza Type B (PCR) Not detected (Not Detect) M. pneumoniae (PCR) Not detected (Not Detect) Parainfluenza 1 (PCR) Not detected (Not Detect) Parainfluenza 2 (PCR) Not detected (Not Detect) Parainfluenza 3 (PCR) Not detected (Not Detect) Parainfluenza 4 (PCR) Not detected (Not Detect) RSV (PCR) Not detected (Not Detect) Entero/Rhino (PCR) Not detected (Not Detect) Point of Care Testing Test Results Negative Urine Dip Bedside Urine Glucose Negative Bedside Urine Bilirubin + 1 Bedside Urine Ketone +/- 5 Urine Specific Carpenter 1.030 Bedside Urine Occult Blood - Negative Bedside Urine pH 5.5 Bedside Urine Protein +/- 15 Bedside Urine Urobilinogen - Negative Bedside Urine Nitrite - Negative Bedside Urine Leukocytes - Negative Esterase Discharge Plan Departure Patient Disposition: Home Clinical Impression: COVID Instructions: DI for COVID-19 (Suspected or Confirmed ) Activity Restrictions/Additional Instructions: Today you tested positive for COVID. This is a contagious upper respiratory virus. Please rest, hydrate, return to the ER if you have any new or worsening symptoms. Please take Ibuprofen (Motrin/Advil) or Acetaminophen (Tylenol) for pain. These are available over the counter. You may take Ibuprofen 600 mg every 8 hours with food for pain. You may also take Acetaminophen 650 mg every 4-6 hours for pain. Do not exceed 3000 mg of Tylenol a day as this can cause liver damage. Do not drink alcohol with either of these medications. Please follow up with your primary care doctor within the next 2-3 days for ER follow-up. (If you do not have a PCP you can call [phone]. ?to schedule an appointment with an [facility] Primary Care Provider) IF YOU DEVELOP ANY NEW OR WORSENING SYMPTOMS, RETURN TO THE ER! Please read the attached instructions, they highlight more specific treatments and interventions for you at home. Thank you for letting me participate in your care, Roxanne Nichole PA-C Prescriptions: No Action ondansetron 4 mg tablet,disintegrating See Rx Instructions .ROUTE .COMPLEX Qty: 30 11RF Dose Instruction: DISSOLVE 1 TABLET IN THE MOUTH EVERY 8 HOURS NEEDED FOR NAUSEA AND VOMITING Rx Instructions: DISSOLVE 1 TABLET IN THE MOUTH EVERY 8 HOURS NEEDED FOR NAUSEA AND VOMITING sucralfate 1 gram tablet 1 g PO QID Qty: 360 3RF pantoprazole 40 mg tablet,delayed release (DR/EC) 40 mg PO DAILY Qty: 30 11RF phentermine 37.5 mg tablet 37.5 mg PO DAILY Qty: 30 2RF Rx Instructions: must administer 30 minutes before or 1-2 hours after breakfast Referrals: Cristofer Tom DO [Primary Care Provider] - Stand Alone Forms: Patient Portal/API/Survey ED Sign-out <Randolph Baker MD - Last Filed: 02/16/24 18:43> Cosign ED Attending Cosjessicaature Attestation: I was immediately available in the department for consultation. This documentation has been reviewed and I agree with assessment and plan. Supervised by Randolph Baker MD
--- NOTE | 2024-02-16 14:47 | DI.RAD.S_ITS ---
PROCEDURE: XR CHEST 2V INDICATIONS: cough x 2 weeks TECHNIQUE: 2 views of the chest were acquired. COMPARISON: None. FINDINGS: Surgical changes and devices: None. Lungs and pleura: Lungs are clear. No pleural effusions or pneumothorax. Mediastinum: Mediastinal contours are normal. Heart size is normal. Bones and chest wall: No suspicious bony abnormalities. Soft tissues appear unremarkable. IMPRESSION: No acute cardiopulmonary abnormality is seen. Dictated by: Mitch New M.D. on 02/16/2024 at 15:14 Approved by: Mitch New M.D. on 02/16/2024 at 15:15
[2024-02-16 15:00] VITALS: BP 138/89; PULSE 100; RESP 18; TEMP 37.1; O2SAT 98
[2024-02-16] MEDS: KETOROLAC 30 MG/ML VIAL IM (15:10)
[2024-02-16] MEDS: ACETAMINOPHEN 325 MG TABLET 650 MG PO (15:10)
[2024-02-16 15:43] LABS: Ictotest Urine Negative (Negative)
[2024-02-16 15:56] LABS: Bacteria Urine Few (2-10); Calcium Oxalate Crystals Urine Many; Hyaline Casts Urine 0-1/LPF; RBC Urine None Seen (0-5/HPF); Squamous Epithelial Cell Urine 1-5 /HPF (0-5/HPF); Urine Volume 10mL (spun); WBC Urine 0-1/HPF (0-5/HPF)
[2024-02-16 15:57] LABS: Mucus Urine 1+ (Negative)
[2024-02-16 16:26] LABS: Adenovirus Not Detected (Not Detect); B. parapertussis Not Detected (Not Detecte); Bordetella pertussis Not Detected (Not Detect); Chlamydophila pneumoniae Not Detected (Not Detect); Coronavirus 229E Not Detected (Not Detect); Coronavirus HKU1 Not Detected (Not Detect); Coronavirus NL 63 Not Detected (Not Detect); Coronavirus OC43 Not Detected (Not Detect); Human Metapneumovirus Not Detected (Not Detect); Human Rhinovirus/Enterovirus Not Detected (Not Detect); Influenza A Not Detected (Not Detect); Influenza B Not Detected (Not Detect); Mycoplasma pneumoniae Not Detected (Not Detect); Parainfluenza Virus 1 Not Detected (Not Detect); Parainfluenza Virus 2 Not Detected (Not Detect); Parainfluenza Virus 3 Not Detected (Not Detect); Parainfluenza Virus 4 Not Detected (Not Detect); Respiratory Syncytial Virus Not Detected (Not Detect)
[2024-02-16 16:34] VITALS: PULSE 85; RESP 18; TEMP 36.6
[2024-02-16 16:45] LABS: SARS- CoV-2 Detected (Not Detecte)
[2024-02-16 17:50] VITALS: BP 134/85; PULSE 79; RESP 18; TEMP 36.9; O2SAT 98
== END 2024-02-16 17:50 | disposition home or self-care (01) ==
PROVIDERS: Emergency Provider Physician Assistant; Family Provider Family Medicine; PCP Family Medicine
DX: U07.1 COVID-19 (principal); F17.290 Nicotine dependence, other tobacco product, uncomplicated
CPT/HCPCS: 71046; 81003; 81015; 81025; 87086; 87633; 96372; 99284; J1885

== ENCOUNTER → 2024-06-07 08:20 | Outpatient (CLI) | payer OTHER, SELFPAY ==
--- NOTE | 2024-06-07 08:21 | DI.US.S_ITS ---
PROCEDURE: US PELVIC COMPLETE INDICATIONS: dysmenorrhea TECHNIQUE: Real-time scanning was performed of the pelvic organs, with image documentation. Additional endovaginal scanning was necessary due to incomplete visualization of the adnexal and endometrial structures by transabdominal scanning. COMPARISON: [facility], US, PELVIC COMPLETE, 11/19/2016, 3:50. FINDINGS: Uterus: Uterus is anteverted and normal in size at 8.8 x 5.1 x 4.6 cm. The myometrium is mildly heterogeneous which is nonspecific but may be related to adenomyosis or other process. The endometrium echo complex measures 6 mm combined thickness within normal limits. Ovaries: The right ovary measures 1.8 x 1.7 x 1.1 cm, with a calculated ovarian volume of 1.7 cc. The left ovary is not visualized per notes. The ovaries have a normal sonographic appearance. Less than 12 follicles can be seen in the right ovary. No adnexal masses. Other: No pathologic free abdominal or pelvic fluid. IMPRESSION: Left ovary is not visualized. Mildly heterogeneous echogenicity of the uterine myometrium is nonspecific may be related to adenomyosis or other process. We strive to produce accurate, complete, and clear reports of imaging services. To assist us in improving patient care, this report was composed using standard report templates and voice recognition software. Therefore, it may contain abnormal punctuation, insertions and/or omissions. Occasional wrong-word or sound-alike substitutions may occur. Though we review the report and make efforts to correct it, we do recommend that the report be read carefully in proper context to recognize any text inaccuracies. Dictated by: Robe Solis M.D. on 06/07/2024 at 12:28 Approved by: Robe Solis M.D. on 06/07/2024 at 12:31
== END ==
PROVIDERS: Family Provider Family Medicine; PCP Family Medicine; Referring Provider Obstetrics & Gynecology; Visit Provider Obstetrics & Gynecology
DX: N94.6 Dysmenorrhea, unspecified (principal)
CPT/HCPCS: 76830; 76856

== ENCOUNTER → 2024-09-13 13:55 | Outpatient (CLI) | payer OTHER, SELFPAY ==
[2024-09-13 15:15] LABS: Follicle Stimulating Hormone 5.84 mIU/mL
[2024-09-13 15:30] LABS: Estradiol, Total 51.1 pg/mL
[2024-09-14 15:07] LABS: Hepatitis B Surface Antigen NEGATIVE s/c (NEGATIVE)
[2024-09-14 15:24] LABS: HIV 1 & 2 Ab/Ag 4th Gen Combo NEGATIVE (NEGATIVE); Hep C Virus Ab w/Reflex Quant NEGATIVE s/c (NEGATIVE)
== END ==
PROVIDERS: Family Provider Family Medicine; PCP Family Medicine; Referring Provider Obstetrics & Gynecology; Visit Provider Obstetrics & Gynecology
DX: N95.1 Menopausal and female climacteric states (principal); Z72.51 High risk heterosexual behavior
CPT/HCPCS: 36415; 82670; 83001; 83002; 84270; 86592; 86803; 87340; 87389

== ENCOUNTER 2024-10-24 10:42 | Day surgery (SDC) | payer OTHER, SELFPAY ==
[2024-10-17 15:03] VITALS: BMI 36.7
[2024-10-24] VITALS (10 sets, daily range): BP systolic 121–149; BP diastolic 52–85; PULSE 58–82; RESP 14–20; TEMP 35.6–36.5; O2SAT 91–99; BMI 36.3
--- NOTE | 2024-10-24 | PATH_ITS ---
[facility] Accession Number: [id number] No. of containers..01 Tissue . 01 Material submitted: . uterus - CERVIX, UTERUS, BILATERAL FALLOPIAN TUBES . 01 Diagnosis: CERVIX, UTERUS, BILATERAL FALLOPIAN TUBES, HYSTERECTOMY WITH BILATERAL SALPINGECTOMY (115 GRAMS): Cervix with no significant histomorphologic abnormality. Endocervix with no significant histomorphologic abnormality. Secretory endometrium; negative for endometrioid intraepithelial neoplasia or malignancy. Myometrium with no significant histomorphologic abnormality. Uterine serosa with no significant histomorphologic abnormality. Right fimbriated fallopian tube with multiple benign paratubal cysts (4-11 mm), complete cross-sections; negative for significant atypia. Left fimbriated fallopian tube with multiple benign paratubal cysts (3-12 mm), complete cross-sections; negative for significant atypia. [facility] 11/01/2024 1517 Local . 01 Electronically signed: . Hilary Chiu MD, Pathologist NPI- [id number] . 01 Gross description: . Received in formalin labeled with two patient identifiers and cervix, uterus, bilateral tubes, and consists of a uterus with attached cervix and attached bilateral fimbriated fallopian tubes. The uterine corpus measures 8.2 x 5.5 x 4.1 cm, 115 grams, and is surfaced by a smooth, gallo-brown, glistening serosal surface. The attached cervix measures 3.1 x 2.8 x 1.0 cm, and is surfaced by a smooth, white, glistening ectocervix. There is a 0.8 cm slit like patent os and the specimen is bivalved to show a gallo, trabeculated, unremarkable endocervical canal free of exophytic lesions. Further sectioning of the endocervical canal shows multiple endocervical cysts ranging from 0.2 to 0.8 cm in greatest dimension. The cysts are smooth walled, unilocular, and filled with yellow to white mucoid material. The myometrial wall is gallo, trabeculated, diffusely thickened, and measures up to 1.6 cm in thickness. No masses or nodules are appreciated in the myometrial wall. There is a 3.1 x 2.1 cm triangular endometrial lining which has a gallo-brown, lush, slightly exophytic endometrial lining which measures up to 0.3 cm in thickness. No polyps or masses are appreciated. . The right fimbriated fallopian tube measures 3.5 cm in length by 0.8 cm in diameter and is surfaced by a smooth gallo-purple glistening serosal surface. In addition, there are multiple paratubal, simple cysts ranging from 0.4 to 1.1 cm in greatest dimension. The cysts are unilocular, smooth-walled, and filled with a serous fluid. Sectioning the fimbriated fallopian tube shows a focally dilated stellate lumen ranging from 0.3 to 0.7 cm in diameter. . The left fimbriated fallopian tube measures 3.4 cm in length by 0.6 cm in diameter and has a smooth gallo-purple glistening serosal surface. There are multiple simple, paratubal cysts ranging from 0.3 to 1.2 cm in greatest dimension. Sectioning of the cysts shows a smooth inner lining filled with serous fluid. The fimbriated fallopian tube is sectioned to show a focally dilated lumen ranging from 0.2 to 0.6 cm in diameter. . Plate Filler sections are submitted as follows: A1: Posterior cervix. A2: Anterior cervix. A3: Full thickness endomyometrium posterior wall. A4: Full thickness endomyometrium anterior wall. A5: Right fallopian tube (fimbriated end) and paratubal cysts. A6: Left fimbriated fallopian tube cross-sections. A7: Left fallopian tube fimbriated end and paratubal cysts. A8: Left fallopian tube cross-sections. ([id number]) / 10/29/2024 0931 Local . 01 Pathologist provided ICD-10: N80.03, N92.4 . 01 CPT . 378602 Specimen Comment: A courtesy copy of this report has been sent to [phone] Performed at: [address] [place] [address] [address], [place], [place] [id number] MD Javid Pollock MD Phone: [phone]
[2024-10-24] MEDS: LACTATED RINGERS 1,000 ML 42 ML IV ×2 (11:41→14:19)
[2024-10-24] MEDS: SCOPOLAMINE 1 PATCH TOP (11:41)
[2024-10-24] MEDS: ACETAMINOPHEN IV 1,000 MG/100 ML VIAL 400 MG IV (11:42)
--- NOTE | 2024-10-24 12:07 | EKG_ITS ---
[place] [id number] [place] [id number] Test Date: 2024-10-24 Pat Name: Adilene Allen Department: 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
--- NOTE | 2024-10-24 12:41 | PM.PREOP ---
Pre-operative Note COVID-19 COVID-19 status: Not tested Interval Note History & Physical reviewed/Exam performed by Physician: Yes Changes to H&P: No
--- NOTE | 2024-10-24 13:41 | SUR.OPER ---
Lithotomy on padded OR bed. [place] Pad Positioner under torso. Purple strap to upper body. Head on pillow and face protected with prone foam, arms purple-padded and tucked at sides. Legs secured in padded yellow fins stirrups.
[2024-10-24] MEDS: BUPivacaine 0.25% W/ EPI (PF) 30 ML VIAL INJ (13:53)
--- NOTE | 2024-10-24 15:59 | PM.GYNOP.1 ---
Operative Date/Time/Diagnoses Date of procedure: 10/24/24 Time of procedure: 12:40 Pre-op diagnosis: Abnormal uterine bleeding Stress urinary incontinence Post-op diagnosis: same Procedure & Clinicians Procedure: Procedures Operation Date: 10/24/24 12:15 Actual Procedure Side Surgeon p Robotic Assisted Total Hysterectomy with Bilateral Salpingectomy Shaq Shetty MD s Mid urethral sling with cystoscopy Shaq Shetty MD Indications: Adilene is a 44-year-old whose last menstrual period was at the beginning of May 2024 and presented originally to discuss results of recent ultrasound, menopausal/perimenopausal symptoms, and her abnormal in extremely painful periods. She experienced menarche between age and 12 on and although her periods were somewhat irregular 1st couple of years, they generally became regular at the end of her teens and into her 20s. She had 2 spontaneous vaginal births without benefit of assisted reproductive technology. She was however told at some point this she had polycystic ovarian syndrome. control was initially by Mirena IUD but she had increased cramping and her periods did not cease or lightened significantly. Cycles subsequently became regular while she was on control pills and even after control pills were discontinued in 2008 following bilateral tubal ligation. Over the last year however she has noted weight gain, vasomotor symptoms which have been increasing recently, brain fog, and insomnia with night sweats. In addition the menstrual interval has started to very and the menstrual flow itself has become heavier, longer in duration, bright red in nature, and passage of large clots is not unusual. In addition she has had overflows and accidents related to the heavy vaginal bleeding. Patient has a past history of migraines with aura therefore is not a candidate for OC use, she is also allergic to skin adhesives which makes the option of transdermal estradiol patch unwise. A recent pelvic ultrasound performed 06/07/2024 shows: FINDINGS: Uterus: Uterus is anteverted and normal in size at 8.8 x 5.1 x 4.6 cm. The myometrium is mildly heterogeneous which is nonspecific but may be related to adenomyosis or other process. The endometrium echo complex measures 6 mm combined thickness within normal limits. Ovaries: The right ovary measures 1.8 x 1.7 x 1.1 cm, with a calculated ovarian volume of 1.7 cc. The left ovary is not visualized per notes. The ovaries have a normal sonographic appearance. Less than 12 follicles can be seen in the right ovary. No adnexal masses. Other: No pathologic free abdominal or pelvic fluid. IMPRESSION: Left ovary is not visualized. Mildly heterogeneous echogenicity of the uterine myometrium is nonspecific may be related to adenomyosis or other process. Paps have always been normal and her Pap is current. She denies any postcoital or intermenstrual spotting/bleeding. She denies any family history of ovarian/uterine malignancies. She returned 07/21 for Mirena IUD insertion in an attempt to induce a state of amenorrhea and provide progestin protection of the endometrium when she initiates oral HRT in the form of estradiol 0.5 mg. She is not a candidate for transdermal estradiol due to adhesive allergies. Adilene returned two months later for removal of her IUD because since its placement however she has had continuous bleeding and significant pain which has required her to miss work at times. Laboratory studies looking at possible early menopause were all in the normal range and a trial of oral estrogen has not significantly diminished her night sweats or other vasomotor symptoms. Lab results reviewed with the patient. With the IUD out now, options for treating the patient's perimenopausal menorrhagia are becoming more limited. We discussed the possibility of endometrial ablation but no assurance could be made that it would definitively resolve her bleeding and pain. With ultrasound findings highly suggestive of adenomyosis, ablation would actually be imprudent. 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 After consideration of all options, the patient has decided proceed with robotically assisted total laparoscopic hysterectomy with bilateral salpingectomy, and mid urethral sling with cystoscopy. She presents today for her scheduled surgery. Surgeon: Shaq Shetty Purchasing Director: Melissa Duarte Anesthesia Type: General Operative Notes Findings: Both the anterior and posterior cul-de-sac unremarkable. The uterus is upper limits of normal size but otherwise unremarkable. Both ovaries appear normal. Both fallopian tubes demonstrate changes consistent with prior tubal ligation. The remainder of the abdomen pelvis normal to laparoscopic inspection Closure Type: primary Specimen(s): left tube, right tube and uterus Applied: catheter Estimated blood loss (mL): 150 Blood products transfused: none Procedure in detail: With the patient in modified dorsal lithotomy position preparations were made by prepping and draping the patient in usual manner for vaginal surgery and insertion of Escobar catheter. A pre-surgical time-out was then taken in accordance with [facility] policy. A bivalve speculum was then placed in the vagina and the cervix visualized. The anterior lip of the cervix was then grasped with a single-tooth tenaculum. The uterus was sounded to [] cm, the endocervical canal dilated slightly, and a VCare uterine manipulator with a [] colpotomy cup was placed. The umbilicus was then infiltrated with 0.5% Marcaine with epinephrine. A 1 cm umbilical incision was made transversely and a Veress needle was used to insufflate the abdominal cavity with carbon dioxide. Once the abdomen was appropriately insufflated, a 5 mm trocar and sleeve were then placed through the umbilical incision. The scope was placed through the trocar and the initial assessment of the intra-abdominal contents carried out. A 2nd and 3rd 5 mm port was then placed 1st in the right mid quadrant from then the left mid quadrant by infiltration of the skin and subcutaneous tissues, a 1 cm transverse incision and insertion of the 5 mm bladeless port. Using a 3 puncture technique, the abdomen and pelvis were inspected laparoscopy and photographically documented. Uterus is mobilized with the VCare manipulator and attention turned to the left adnexa. The distal tube was then grasped and the fimbria varicose divided after coagulation with the PowerSeal device. The dissection was then carried out toward the cornua and the fallopian tube amputated. The tube was removed through a 5 mm port and dissection was then carried down using the PowerSeal device so as to divide the utero-ovarian ligament and the round ligament with blunt and sharp dissection of the broad down to the level of the uterine artery. The uterine artery was then skeletonized after development of a bladder flap, coagulated, and divided. Once hemostasis was assured on the left side attention was turned to the right and the tube, utero-ovarian ligament, round ligament, and broad ligament were dissected in a fashion exactly the same as it had been on the left. The right uterine artery was then visualized after skeletonization and coagulated and divided. The uterus was seen to remi after coagulation of both your arteries and the cup was identified through the vaginal muscularis at its insertion with the body of the cervix. Circumferential excision of the vaginal cup was accomplished without difficulty using monopolar current and the uterus mobilized. The uterus was then removed through the vagina and the vaginal cuff closed [id number] with a series of 0 Vicryl [id number] stitches. Hemostasis was excellent. A weighted speculum was inserted in the vagina and the anterior vaginal wall inspected. A Escobar catheter was inserted in the bladder and the mid urethra was identified by palpation of the Escobar bulb. Once the mid urethra had been identified, 2 Allis clamps were placed and the area of incision infiltrated with 0.25% Marcaine with epinephrine. A 2 cm longitudinal incision of the vaginal mucosa overlying the mid urethra was then made and using Metzenbaum scissors the dissection was carried lateral on both sides so as to be able to safely introduce the retropubic tension-free vaginal tape. The TVT needle was placed 1st on the right side followed by placement of a left up through the suprapubic skin. The needle tips were brought out through the skin and remained in place while the Escobar catheter was removed and cystoscopy performed with findings as noted above. The TVT needles were then brought up through the suprapubic incisions and removed with suture scissors. The mid urethral sling was then appropriately positioned under the mid urethra and the plastic sleeves removed from the TVT once it was in correct position. The redundant portion TVT material was then excised at the skin line of the suprapubic incisions. Correct positioning of the TVT was then confirmed and the vaginal incision closed with 3-0 chromic in a running locking stitch. Pressure was maintained on the retropubic tissues for 5 minutes so as to reduce the risk subsequent bleeding or bruising. The suprapubic incisions were then closed with skin glue. The abdomen was re-insufflated, and the pelvis inspected laparoscopically. The pelvis was inspected for any abnormality or bleeding, and the ureters were each seen to be peristalsing freely. With complete hemostasis assured, the pneumoperitoneum was vented and the ports removed. All of the 5 mm ports were then closed with 4-0 Monocryl on the skin using inverted interrupted sutures. Skin glue was placed and after the glue was dried, an appropriate dressing was applied. The case was then terminated, the patient awakened, and then transferred to PACU after having tolerated the procedure well. Complications: none Post-operative Condition: stable Disposition: PACU Plan for aftercare: Routine postoperative care with follow-up planned for 2 weeks after surgery
[2024-10-24] MEDS: LACTATED RINGERS 1,000 ML 100 ML IV (17:26)
[2024-10-24] MEDS: ACETAMINOPHEN 325 MG TABLET 650 MG PO (17:31)
[2024-10-24] MEDS: ONDANSETRON 4 MG/2 ML INJ IV ×2 (17:31→20:47)
--- NOTE | 2024-10-24 18:29 | PC.NURSE ---
Patient arrived at 1630 from PACU this afternoon. She is lethargic and sleepy but reports pain to lower groin across the middle 9. She reports mild nausea and also feeling hungry. She states catheter feeling makes it feel like she needs to urinate. Admission assessment completed, IVF LR at 100 ml/hr, encouarged IS, SCD's on, call light in reach, bed alarm on, oriented to room and unit routine. Daughters visiting at bedside this evening. She is able to tolerate some snacks from the fridge. Frequent rounding, coninuous pulse ox, POST OP VS per routine. Patient instructed how to use pillow to splint while coughing. Alevyn x 4 incision sites to abdomen c/d/i. BS +x4. She states LBM x2 days ago.
[2024-10-24] MEDS: KETOROLAC 30 MG/ML VIAL IV (21:48)
[2024-10-25] MEDS: CALCIUM CARBONATE 500 MG TAB PO (02:06)
[2024-10-25] MEDS: ONDANSETRON 4 MG/2 ML INJ IV ×2 (02:06→04:18)
[2024-10-25] MEDS: KETOROLAC 30 MG/ML VIAL IV ×2 (04:18→09:16)
[2024-10-25 05:48] LABS: Add Manual Diff / Slide Review NO; Hematocrit 34.6 % (36-46); Hemoglobin 11.6 g/dL (12.0-16.0); Lymphocytes Absolute Auto 1100 /uL (1100-4500); Mean Corpuscular HGB Conc 33.6 % (30-36); Mean Corpuscular Hemoglobin 28.3 PG (26-34); Mean Corpuscular Volume 84.4 fL (80-100); Platelet Count 274 X10^3/uL (150-400)
[2024-10-25] MEDS: ACETAMINOPHEN 325 MG TABLET 650 MG PO (06:09)
[2024-10-25] MEDS: PANTOPRAZOLE DR 40 MG TABLET PO (07:54)
[2024-10-25 08:08] VITALS: BP 125/57; PULSE 69; RESP 18; TEMP 35.9; O2SAT 98
--- NOTE | 2024-10-25 08:12 | P.DS_ITS ---
History of Present Illness History of Present Illness Date Patient Seen: 10/25/24 Time Patient Seen: 08:12 Chief complaint: Hysterectomy w bilateral salpingectomy Narrative: Adilene is a 44-year-old whose last menstrual period was at the beginning of May 2024 and presented originally to discuss results of recent ultrasound, menopausal/perimenopausal symptoms, and her abnormal in extremely painful periods. She experienced menarche between age and 12 on 13 and although her periods were somewhat irregular 1st couple of years, they generally became regular at the end of her teens and into her 20s. She had 2 spontaneous vaginal births without benefit of assisted reproductive technology. She was however told at some point this she had polycystic ovarian syndrome. control was initially by Mirena IUD but she had increased cramping and her periods did not cease or lightened significantly. Cycles subsequently became regular while she was on control pills and even after control pills were discontinued in 2008 following bilateral tubal ligation. Over the last year however she has noted weight gain, vasomotor symptoms which have been increasing recently, brain fog, and insomnia with night sweats. In addition the menstrual interval has started to very and the menstrual flow itself has become heavier, longer in duration, bright red in nature, and passage of large clots is not unusual. In addition she has had overflows and accidents related to the heavy vaginal bleeding. Patient has a past history of migraines with aura therefore is not a candidate for OC use, she is also allergic to skin adhesives which makes the option of transdermal estradiol patch unwise. A recent pelvic ultrasound performed 06/07/2024 shows: FINDINGS: Uterus: Uterus is anteverted and normal in size at 8.8 x 5.1 x 4.6 cm. The myometrium is mildly heterogeneous which is nonspecific but may be related to adenomyosis or other process. The endometrium echo complex measures 6 mm combined thickness within normal limits. Ovaries: The right ovary measures 1.8 x 1.7 x 1.1 cm, with a calculated ovarian volume of 1.7 cc. The left ovary is not visualized per notes. The ovaries have a normal sonographic appearance. Less than 12 follicles can be seen in the right ovary. No adnexal masses. Other: No pathologic free abdominal or pelvic fluid. IMPRESSION: Left ovary is not visualized. Mildly heterogeneous echogenicity of the uterine myometrium is nonspecific may be related to adenomyosis or other process. Paps have always been normal and her Pap is current. She denies any postcoital or intermenstrual spotting/bleeding. She denies any family history of ovarian/uterine malignancies. She returned 07/21 for Mirena IUD insertion in an attempt to induce a state of amenorrhea and provide progestin protection of the endometrium when she initiates oral HRT in the form of estradiol 0.5 mg. She is not a candidate for transdermal estradiol due to adhesive allergies. Aidlene returned two months later for removal of her IUD because since its placement however she has had continuous bleeding and significant pain which has required her to miss work at times. Laboratory studies looking at possible early menopause were all in the normal range and a trial of oral estrogen has not significantly diminished her night sweats or other vasomotor symptoms. Lab results reviewed with the patient. With the IUD out now, options for treating the patient's perimenopausal menorrhagia are becoming more limited. We discussed the possibility of endometrial ablation but no assurance could be made that it would definitively resolve her bleeding and pain. With ultrasound findings highly suggestive of adenomyosis, ablation would actually be imprudent. 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 After consideration of all options, the patient has decided proceed with robotically assisted total laparoscopic hysterectomy with bilateral salpingectomy, and mid urethral sling with cystoscopy. She presents today for her scheduled surgery. Discharge Providers Provider Date of admission: 10/24/2024 Discharge Date: 10/25/24 Primary care physician: Cristofer Tom DO Discharge provider: Shaq Shetty MD Summary Hospital Course Discharge Diagnosis: Abnormal uterine bleeding Stress urinary incontinence Status post total laparoscopic hysterectomy with bilateral salpingectomy and mid urethral sling placement with cystoscopy. Hospital Course: On 10/24/2024, the patient was admitted for and underwent an uneventful total laparoscopic hysterectomy with bilateral salpingectomy. Full details of the procedure well summarized on my operative note of that date. Following their surgery the patient has done exceptionally well with prompt return of bowel and bladder function, she is ambulating independently, tolerating a regular diet, and her pain is well-controlled with oral pain medications. She will be discharged at this time to home in an afebrile normotensive in [facility] condition after counseling regarding precautionary symptoms, limitations of activity, medications, and plans for follow-up which will be in 2 weeks. Medications at discharge will include resumption of all preadmission medications as well as [id number] Tylenol and ibuprofen for pain relief. Status at Discharge Cognitive/behavioral status at discharge: oriented Functional status at discharge: independent ambulation Overall status at discharge: patient is progressing back to baseline Time Spent with Patient Time spent: Less than 30 minutes Exam Vital Signs (past 8 hours): Oxygen Delivery Method Room Air Oxygen Flow Rate 0 Const General: cooperative and comfortable Nutritional Appearance: average body habitus Orientation: alert and oriented x3 HENMT Head: normal to inspection, atraumatic and abrasion Ears: hearing grossly normal bilaterally Face and sinus: face symmetric Eyes General: appearance normal, both eyes and all related structures Conjunctivae: conjunctivae normal Sclera: sclerae normal EOM: EOM intact bilaterally Neck Neck: normal visual inspection Resp Effort & Inspection: normal respiratory effort and able to speak in complete sentences Auscultation: clear to auscultation bilaterally Cardio Rate: regular rate Rhythm: regular rhythm Heart Sounds: S1 normal, S2 normal and no murmurs GI Inspection: normal to inspection and incision (Surgical dressings clean and dry) Palpation: soft, no hepatosplenomegaly and tender (Mild, diffuse postsurgical tenderness) Auscultation: normal bowel sounds External Female Exam: other (No significant bleeding noted) Extrem General: no calf tenderness Psych Appearance: grossly normal Mental Status: mental status grossly normal Speech and Movement: speech and movement normal Mood: congruent mood Affect: normal affect Attitude: cooperative Thought Process: normal Thought Content: normal Judgment: judgment good Objective Labs 10/25/24 05:20 Labs: Laboratory Results - last 24 hr 10/25/24 05:20 WBC 10.4 RBC 4.10 Hgb 11.6 L Hct 34.6 L MCV 84.4 MCH 28.3 MCHC 33.6 RDW 13.5 Plt Count 274 Neut % (Auto) 83.7 H Lymph % (Auto) 10.4 L [place] % (Auto) 5.8 Eos % (Auto) 0.0 L Baso % (Auto) 0.1 Neut # (Auto) 8700 H Lymph # (Auto) 1100 [place] # (Auto) 600 Eos # (Auto) 0 Baso # (Auto) 0 PFSH Medical History LVH (left ventricular hypertrophy) Easy bruisability GERD (gastroesophageal reflux disease) IFG (impaired fasting glucose) Family history of coronary artery disease Neoplasm of uncertain behavior Fibromyalgia Depression with anxiety Obesity Family history of fibromyalgia Plantar warts Eczema Acne Post traumatic stress disorder (PTSD) Depression Anxiety Migraines Headache ADHD Fractures Chronic back pain Chicken pox Vertigo (~2017) Painful menstrual periods Irregular menstrual cycle Human papilloma virus Abnormal Pap smear of cervix Overactive bladder (~2008) Surgical History Anesthesia History of surgery (~2013) History of tonsillectomy and adenoidectomy History of tubal ligation (~08/2008) Family History Father Bladder cancer Diabetes mellitus Atrial fibrillation Hypertension Mother Heart disease Hypertension Atrial fibrillation Brother Hyperlipidemia Hypertension Grandmother Stroke Social History marital status: unmarried,living together number of children: 2 household members: significant other and children lives independently: Yes education level: college occupational status: employed alcohol intake: current substance use type: does not use Discharge Assessment & Plan Assessment and Plan Assessment: Abnormal uterine bleeding Stress urinary incontinence Status post total laparoscopic hysterectomy with bilateral salpingectomy and mid urethral sling placement with cystoscopy. Plan of Treatment: Routine postoperative care with follow-up planned for 2 weeks after surgery Discharge Plan Discharge Plan Patient Disposition: Home Provider Discharge Comment: Please review the written instructions you received when you were discharged from the hospital. Your follow-up appointment is scheduled in 2 weeks after your surgery and we look forward to seeing you then. If however in the meanwhile you have any questions, concerns, or other issues, please contact me either through the office phone at [phone], or via the patient portal. Post-Operative Instructions for sling procedure: Surgical Site: Blood spotting from the vagina is expected and not cause for alarm. All stitches will dissolve on their own. You may apply ice packs to the vaginal/pubic area as needed for comfort for the first two days. You can shower approximately 48 hours after your surgery but avoid scrubbing the surgical site. Do not submerge underwater for 6 weeks (no bathtub or swimming pool). Diet and Activity: You may return to your normal diet and light activity, as tolerated, after surgery. Avoid driving while on narcotic pain medications. Please avoid any heavy lifting more than 10 lbs or strenuous physical activities altogether for 4 weeks and then ease back into your regular activity. Avoid vaginal intercourse or penetration for 6 weeks. Medications: You received a prescription for a narcotic pain pill to use in addition to extra strength Tylenol (acetaminophen). Narcotics can cause constipation so use [id number] stool softeners as needed. Please avoid any Aspirin, Advil, Motrin, Aleve, ibuprofen, or any other blood thinners after the procedure for at least two days. Problems you should report: Fevers > 101. Any pain not controlled by pain medication provided. Uncontrolled bleeding from the incision. Inability to urinate. Any concerns or problems, please contact us at anytime. Discharge orders & Medications Discharge Orders: Discharge (Order); Ordered 10/25/24 Ordered By: Shaq Shetty Prescriptions: Continued ondansetron 4 mg tablet,disintegrating See Rx Instructions .ROUTE .COMPLEX Qty: 30 11RF Dose Instruction: DISSOLVE 1 TABLET IN THE MOUTH EVERY 8 HOURS NEEDED FOR NAUSEA AND VOMITING Rx Instructions: DISSOLVE 1 TABLET IN THE MOUTH EVERY 8 HOURS NEEDED FOR NAUSEA AND VOMITING sucralfate 1 gram tablet 1 g PO QID Qty: 360 3RF pantoprazole 40 mg tablet,delayed release (DR/EC) 40 mg PO DAILY Qty: 30 11RF fluticasone propionate [Flonase Allergy Relief] 50 mcg/actuation spray,suspension 2 spray intranasal DAILY PRN (Reason: nasal congestion) Qty: 16 11RF Rx Instructions: administer into each nostril No Action tirzepatide 10 mg/0.5 mL pen injector See Rx Instructions .Route .COMPLEX Qty: 10 1RF Rx Instructions: (Titration)10mg w/ cyanocabalamin 0.5mg/ml (okay to compound w/B12 Dx/clinically necessary for risk of low B12 complications due to dietary restrictions);Week 1-4 inject 2.5mg SQ weekly; Week 5-8 inject 5mg SQ weekly; Week 9-12 inject 7.5mg SQ weekly; dx E53.8 & E66.09/Z68.38 estradiol 0.5 mg tablet 0.5 mg PO DAILY Follow up/Referrals: Cristofer Tom DO [Primary Care Provider, Family Practice] Shaq Shetty MD [Physician, ARTS ADMINISTRATOR] Diet/Activity/Treatments Diet: Diet as Tolerated Activity: As tolerated Other treatments: Gdeq-llp-[id number] Tylenol and/or ibuprofen may be used as needed for additional pain relief. Nttp-[id number] stool softeners and/or MiraLax may be used as needed for constipation. Skin/Wound/Dressing Care Report to your healthcare provider any signs of infection, such as:: chills, fever, increased pain, unusual drainage and unusual redness Dressing: Dressings should be removed on the morning of 10/26/2024 Visit Report/Discharge Packet Instructions: DI for Hysterectomy, DI for Laparoscopy Stand Alone Forms: Patient Portal/API, Surgery Discharge Print Language: Telugu Discharge Data Primary Care Provider: Cristofer Tom Attending Provider: Shaq Shetty PROFEE Charge Codes Discharge inpatient/observation: [id number]
--- NOTE | 2024-10-25 08:37 | CM.DANOTE ---
DCP Assessment Note: Pt is a 44yo female, resident of [place], is admitted s/p hysterectomy due to adenomyosis of the uterus. Pt lives in a house with her partner and children. Pt's Primary Care Provider is Dr. Cristofer Tom and insurance is [employer]. Reviewed chart and discussed with multidisciplinary team pt's medical status and initial discharge needs. Per Provider, pt cleared for discharge, orders placed. Per RN, pt voided and feels confident in discharge plan. DCP met w/patient at bedside; introduced self and role. Patient was found in bed, alert and oriented, cooperative with assessment. Pt confirmed living situation and good support in family, declined any needs for discharge. Pt confirms her father will transport her home after breakfast and after dc education. Plan: Anticipating dc home with father to transport, will meet pt at entrance. CM team will follow closely for coordination of discharge plans. 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 No History Provided By Patient Prior Living Apartment/Condo Arrangements Household Members significant other,children Type of Drives own vehicle transporation used prior to admit Independent with ADL Yes 's Is patient alert and Yes oriented? Discharge Plan Home Transportation Father will meet pt at entrance Arrangement Referrals Initiated None needed Review Status In Process Please Provide Date 10/25/24 Initial DC Assessment Was Performed Next Review Type Continued Stay Review Pre-Anesthesia Assessment Start: 10/17/24 15:03 Freq: Status: Complete Protocol: Document 10/17/24 15:03 LB (Rec: 10/17/24 15:11 LB [id number]) Pre-Anesthesia Assessment PAC Comment 10/17/24 Chart review. Patient Information Chart Review Reviewed Via Diagnostic Results Other Comment 09/13/24 at . 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 Reaction Anesthesia Review No Requested alcohol intake current Smoking Status Current every day smoker Tobacco type smokeless tobacco Substance Use Type [ does not use #R] Patient is No completely paralyzed or completely immobile Is patient on oxygen No ? Hx Sleep Apnea No Currently Taking a No Beta Kit Hx SOB Yes Anti-Coagulant No Therapy Has a Integration Consultant No Cardiac Testing No Hx Pacemaker/ICD No Gastrointestinal Reflux Symptoms Chronic UTI No Bladder Pattern Incontinent, Stress Urinary Catheter No Present Hx Urinary Self No Catheterization Diabetes No Hx Drug Resistant No Organism Presence of External No or Internal Medical Devices Received a COVID Yes vaccine? Marital Status Life Partner Lives With significant other,children Patient Discharge Return Home Plan Description Health Care Proxy/ Low Allen - father Next of Kin Health Care Proxy [phone] Phone Number Emergency Contact Clara Jv - friend Name Emergency Contact [phone] Phone Number Advance Directives? No
--- NOTE | 2024-10-25 10:13 | PC.NURSE ---
Pt. is A&OX4, VSS, afebrile on RA. She had her mcneal catheter dc'd in the evening last night and has been up to the bathroom to void multiple times. She reports pain is not too bad at 6/10 and per request toradol IV only given this a.m. Incisions are c/d/i to abdomen, BS +x4. MD at bedside clearing her for discharge home today on oral abx, and follow up in 2 weeks. She acknowledges understanding of discharge medications, activity limitations, site care, and s/sx of infection/complication. She is escorted via w/ch to private vehicle with her father for discharge home today at approximately 0945 a.m.
== END 2024-10-25 09:45 | disposition home or self-care (01) ==
LOC: OR 15:34 → AC 15:35
PROVIDERS: PCP Family Medicine; Referring Provider Obstetrics & Gynecology; Visit Provider Obstetrics & Gynecology
PROC: 0UT94ZZ Resection of Uterus, Percutaneous Endoscopic Approach (ICD-10-PCS; CPT 58571; principal; 2024-10-24 12:15)
PROC: 0TSD0ZZ Reposition Urethra, Open Approach (ICD-10-PCS; CPT 58571; 2024-10-24 12:15)
DX: N92.4 Excessive bleeding in the premenopausal period (principal); N39.3 Stress incontinence (female) (male); Z91.048 Other nonmedicinal substance allergy status; N83.8 Other noninflammatory disorders of ovary, fallopian tube and broad ligament
CPT/HCPCS: 58571; 57288; 36415; 85025; 93005; C1771; J0131; J0689; J1100; J1171; J1885; J2250; J2405; J2704; J3010; J3490

== ENCOUNTER 2024-11-01 23:13 | Emergency (ER) | payer OTHER, SELFPAY ==
[2024-10-24 17:53] VITALS: BMI 36.3
[2024-11-01 23:28] VITALS: BP 163/93; PULSE 99; RESP 18; TEMP 36.5; O2SAT 97; BMI 35.4
[2024-11-01] MEDS: diphenhydrAMINE 25 MG TABLET 50 MG PO (23:40)
--- NOTE | 2024-11-01 23:42 | ED_ITS ---
HPI - Skin/Abscess/Foreign Bdy General Chief complaint: Skin/Abscess/Foreign Body Stated complaint: Poss Infection, poss allergic reaction to med Time Seen by Provider: 11/01/24 23:42 Source: patient, RN notes reviewed and old records reviewed Mode of arrival: Ambulatory Limitations: no limitations History of Present Illness HPI narrative: 44-year-old female who had laparoscopic abdominal surgery has a known allergy to adhesive. Patient states she has rash and redness at each of her individual sites from her laparoscopic bladder repair and partial hysterectomy. Developed a several days afterwards has been very itchy and irritated. It is not painful. She denies fevers. She has has a little nausea but no vomiting. She denies any intra-abdominal pain. States she has a little bit of pelvic discomfort but states it has been improving since her surgery. States she has been constipated but passing gas regularly. Denies any urinary symptoms. She reached out to the surgeon who recommended hydrocortisone topically and wrapping her skin with the Saran wrap. She has not had much improvement and presents. Denies rash itching or other systemic symptoms. Denies any fevers. Related Data Home Medications ?Medication ?Instructions ?Recorded ?Confirmed estradiol 0.5 mg tablet 0.5 mg PO DAILY 11/01/2407/21 Previous Rx's ?Medication ?Instructions ?Recorded ondansetron 4 mg disintegrating See Rx Instructions .R oute 08/23/24 tablet .COMPLEX #30 tabs sucralfate 1 gram tablet 1 g PO QID #360 tabs 5 pantoprazole 40 mg tablet,delayed 40 mg PO DAILY #30 t abs 09/10/24 release fluticasone propionate 50 2 spray intranasal DAILY PRN nasal 09/30/24 mcg/actuation nasal congestion #16 grams spray,suspension (Flonase Allergy Relief) cephalexin 750 mg capsule 750 mg PO BID 7 days #14 cap s 10/31/24 Allergies Allergy/AdvReac Type Severity Reaction Status Date / Time Penicillins Allergy Intermediate nausea and Verified 11/01/24 23:26 itching. sulfamethoxazole (From Allergy Mild Hives Verified 11/01/24 23:26 SEPT) trimethoprim (From ) Allergy Mild hives Verified 11/01/24 23:26 adhesive Allergy Verified 11/01/24 23:26 Surgical Glue AdvReac Intermediate Rash Uncoded 11/01/24 23:26 Review of Systems Review of Systems ROS Unobtainable: All systems reviewed & are unremarkable except as noted in HPI and below Patient History Medical History LVH (left ventricular hypertrophy) Easy bruisability GERD (gastroesophageal reflux disease) IFG (impaired fasting glucose) Family history of coronary artery disease Neoplasm of uncertain behavior Fibromyalgia Depression with anxiety Obesity Family history of fibromyalgia Plantar warts Eczema Acne Post traumatic stress disorder (PTSD) Depression Anxiety Migraines Headache ADHD Fractures Chronic back pain Chicken pox Vertigo (~2017) Painful menstrual periods Irregular menstrual cycle Human papilloma virus Abnormal Pap smear of cervix Overactive bladder (~2008) Surgical History Anesthesia History of surgery (~2013) History of tonsillectomy and adenoidectomy History of tubal ligation (~08/2008) Family History Father Bladder cancer Diabetes mellitus Atrial fibrillation Hypertension Mother Heart disease Hypertension Atrial fibrillation Brother Hyperlipidemia Hypertension Grandmother Stroke Social History marital status: unmarried,living together number of children: 2 household members: significant other and children lives independently: Yes education level: college occupational status: employed Smoking Status: Current every day smoker alcohol intake: current substance use type: does not use Smoking Status: Current every day smoker tobacco type: vaping alcohol intake frequency: holidays/special occasions only Exam Narrative Exam Narrative: GENERAL: Alert and oriented x three, female in mild distress HEENT: Head normocephalic, atraumatic, EOMI, pupils reactive, face symmetric, moist mucous membranes NECK: Supple, full range of motion CARDIOVASCULAR: Regular rate and rhythm without murmurs, rubs or gallops. RESPIRATORY: Breath sounds equal bilaterally, no wheezes rales or rhonchi. ABDOMEN: Soft, nontender. Normoactive bowel sounds all 4 quadrants. No guarding or rebound, rigidity, no mass, each of patient's laparoscopic sites twin has a about 0.5 cm of erythema slightly raised slightly excoriated. The incisions are all intact. They are nontender. She does not have any other eryt jesús or patchy redness elsewhere. : No CVA tenderness EXTREMITIES: Normal range of motion, no clubbing or edema. Neurovascularly intact NEUROLOGICAL: Cranial nerves II through XII grossly intact. Moving all extremities SKIN: Warm, dry, no petechiae, no rashes or lesions. Initial Vital Signs Initial Vital Signs: Vital Signs Temperature 97.7 F 11/01/24 23:28 Pulse Rate 99 H 11/01/24 23:28 Respiratory Rate 18 11/01/24 23:28 Blood Pressure 163/93 H 11/01/24 23:28 Pulse Oximetry 97 11/01/24 23:28 Oxygen Delivery Method Room Air 11/01/24 23:28 Course Orders Ordered: Discontinued Medications Dexamethasone (Dexamethasone 10 Mg/Ml Vial) 10 mg PO NOW ONE Stop: 11/01/24 23:42 Last Admin: 11/01/24 23:54 Dose: 10 mg Documented By: AB Diphenhydramine HCl (Diphenhydramine 25 Mg Tablet) 50 mg PO NOW ONE Stop: 11/01/24 23:37 Last Admin: 11/01/24 23:40 Dose: 50 mg Documented By: AB Vital Signs Vital signs: Vital Signs - 8 hr 11/01/24 23:28 Temperature 97.7 F Pulse Rate 99 H Respiratory Rate 18 Blood Pressure 163/93 H Pulse Oximetry 97 Oxygen Delivery Method Room Air MDM - Skin/Abscess/Foreign Bdy MDM Narrative Medical decision making narrative: Patient had oral Benadryl, dexamethasone. Can continue with the hydrocortisone. Appears to be having localized reaction to adhesive and her incision sites for her laparoscopic surgery. Patient is to follow up with General surgery if controlled. If rapidly worsening she is to return or if she develops any new symptoms that are concerning for infection. Discharge Plan Departure Patient Disposition: Home Clinical Impression: Allergic reaction to adhesive Activity Restrictions/Additional Instructions: You do appear to be having allergic reaction to your adhesive that was at each of your laparoscopic sites. You can continue Benadryl 1-2 tablets (25-50mg) darian ry 6 hours as needed. You can use topical hydrocortisone to the areas directed by your surgeon. I would also recommend antihistamine such as Zyrtec daily [id number]. You can also use cool compresses or ice to the area if helpful. Please return if you develop fevers, if the redness or swelling spreads, if you have fevers, new abdominal back or flank pain, if you are incisions open up or start to drain, any vomiting, black or bloody stools or other new or concerning changes. Prescriptions: No Action ondansetron 4 mg tablet,disintegrating See Rx Instructions .ROUTE .COMPLEX Qty: 30 11RF Dose Instruction: DISSOLVE 1 TABLET IN THE MOUTH EVERY 8 HOURS NEEDED FOR NAUSEA AND VOMITING Rx Instructions: DISSOLVE 1 TABLET IN THE MOUTH EVERY 8 HOURS NEEDED FOR NAUSEA AND VOMITING sucralfate 1 gram tablet 1 g PO QID Qty: 360 3RF pantoprazole 40 mg tablet,delayed release (DR/EC) 40 mg PO DAILY Qty: 30 11RF cephalexin 750 mg capsule 750 mg PO BID 7 Days Qty: 14 0RF fluticasone propionate [Flonase Allergy Relief] 50 mcg/actuation spray,suspension 2 spray intranasal DAILY PRN (Reason: nasal congestion) Qty: 16 11RF Rx Instructions: administer into each nostril estradiol 0.5 mg tablet 0.5 mg PO DAILY Referrals: Cristofer Tom DO [Primary Care Provider, Family Practice] Stand Alone Forms: Patient Portal/API
== END 2024-11-01 23:56 | disposition home or self-care (01) ==
PROVIDERS: Emergency Provider Emergency Medicine; PCP Family Medicine
DX: T78.49XA Other allergy, initial encounter (principal); R21 Rash and other nonspecific skin eruption; R10.2 Pelvic and perineal pain
CPT/HCPCS: 99283; J1100

== ENCOUNTER → 2024-11-14 12:29 | Outpatient (CLI) | payer OTHER, SELFPAY ==
[2024-10-24 17:53] VITALS: BMI 36.3
--- NOTE | 2024-11-14 12:30 | DI.ECHO.S_ITS ---
[facility]---------+ [facility] : : [address] : : [place] : : [id number] : : Phone: [phone] Echocardiogram Report + + :Name: BERTIN FRY Study Date: 11/14/2024 Height: 70 in : :[facility] ReadingLocation: Weight: 249 lb : : Gender: Female BSA: 2.3 m2 : :: 1980 Age: 44 yrs BP: 142/93 mmHg: :Reason For Study: LEFT VENTRICULAR HYPERTROPHY : :Ordering Physician: EMMANUEL GARCIAPerformed By: Sherita Weems : :Referring: EMMANUEL GARCIA : + + Interpretation Summary The left ventricle is normal in size and wall thickness. Left ventricular ejection fraction is estimated to be 50 +/- 5%. Septal motion is consistent with conduction abnormality. The right ventricle is normal in size and function. There is mild mitral regurgitation. Procedure: A two-dimensional transthoracic echocardiogram with color flow and Doppler was performed. The study quality was technically adequate. There is no prior echocardiogram noted for this patient. The patient was in sinus rhythm with heart rates between 68-73 bpm during the exam. Left Ventricle: The left ventricle is normal in size and wall thickness. Left ventricular ejection fraction is estimated to be 50 +/- 5%. Septal motion is consistent with conduction abnormality. Normal diastolic function. Right Ventricle: The right ventricle is normal in size and function. Atria: The left atrial size is normal. Right atrial size is normal. There is no Doppler evidence for an interatrial shunt. Mitral Valve: The mitral valve leaflets appear to open well. There is mild mitral regurgitation. Aortic Valve: The aortic valve is trileaflet. The aortic valve opens well. There is no aortic valve stenosis. No aortic regurgitation is present. Tricuspid Valve: The tricuspid valve leaflets are thin and pliable. There is mild tricuspid regurgitation. Pulmonic Valve: The pulmonic valve leaflets are thin and pliable; valve motion is normal. There is mild pulmonic regurgitation. Great Vessels: The aortic root is normal size. The dimensions of the ascending aorta are normal. The IVC is of normal diameter and collapses greater than 50% with a sniff. This suggests a low right atrial pressure of 3 mm Hg. Pericardium/ Pleura There is no pericardial effusion. There is no pleural effusion. MMode/2D Measurements & Calculations LVIDd: 5.3 cm LVOT diam: 2.2 cm LVIDs: 3.9 cm Ao root diam: 2.8 cm FS: 26.3 % asc Aorta Diam: 2.8 cm EPSS: 0.65 cm Ao Arch Diam (Prox Trans): 2.4 cm IVSd: 0.72 cm LVPWd: 0.69 cm LV arrington. diameter/BSA (cm/m^2): 2.3 LV sys. diameter/BSA (cm/m^2): 1.7 LA A2 area: 15.1 cm2 RA long axis: 4.1 cm LA A4 area: 13.6 cm2 RA area: 12.3 cm2 LA length (vol): 4.6 cm RA vol: 31.1 ml LA vol: 38.5 ml RA : 13.6 ml/m2 LA vol index: 16.8 ml/m2 IVC diam: 1.8 cm RVD1 (basal): 3.8 cm RVD2 (mid): 3.6 cm TAPSE: 1.7 cm Doppler Measurements & Calculations Ao V2 max: 126.7 cm/sec LVOT Max Lorenzo: 88.0 cm/sec Ao V2 mean: 92.4 cm/sec LV V1 max P.1 mmHg Ao max P.4 mmHg LV V1 VTI: 17.0 cm Ao mean P.7 mmHg ASHU(I,D): 2.4 cm2 Ao V2 VTI: 25.6 cm ASHU(V,D): 2.6 cm2 sev ratio: 0.67 ASHU indexed to BSA (cm^2/m^2): 1.1 MV E max lorenzo: 64.8 cm/sec PA V2 max: 85.1 cm/sec MV A max lorenzo: 50.0 cm/sec PA V2 mean: 55.6 cm/sec MV E/A: 1.3 PA mean P.4 mmHg Med Peak E' Lorenzo: 8.6 cm/sec PA pr(Accel): 25.7 mmHg E/E' med: 7.5 Lat Peak E' Lorenzo: 16.5 cm/sec E/E' lat: 3.9 E/e' average: 5.7 MV dec time: 0.22 sec SV(LVOT): 62.6 ml Reading Physician:03:05 PM
== END ==
LOC: ECHO 12:30
PROVIDERS: PCP Family Medicine; Referring Provider Family Medicine; Visit Provider Family Medicine
DX: I08.1 Rheumatic disorders of both mitral and tricuspid valves (principal)
CPT/HCPCS: 93306

== ENCOUNTER → 2025-01-31 12:05 | Outpatient (CLI) | payer OTHER, SELFPAY ==
[2024-10-24 17:53] VITALS: BMI 36.3
[2025-01-31 13:49] LABS: Hematocrit 39.5 % (36-46); Hemoglobin 13.2 g/dL (12.0-16.0); Mean Corpuscular HGB Conc 33.5 % (30-36); Mean Corpuscular Hemoglobin 28.1 PG (26-34); Mean Corpuscular Volume 83.8 fL (80-100); Platelet Count 290 X10^3/uL (150-400)
[2025-01-31 14:30] LABS: Alanine Aminotransferase 22 IU/L (<35); Albumin 4.4 g/dL (3.5-5.0); Albumin Globulin Ratio 1.5 (1.0-2.8); Alkaline Phosphatase 72 U/L (38-126); Blood Urea Nitrogen 12 mg/dL (7-17); Calcium 9.4 mg/dL (8.4-10.2); Carbon Dioxide 26 mmol/L (22-32); Chloride 103 mmol/L (98-107); Cholesterol 197 mg/dL (140-199); Estimated Glomerular Filt Rate > 60 mL/min (>60); Globulin 3.0 g/dL (1.7-4.1); Glucose 124 mg/dL (70-99); HDL Cholesterol 66 mg/dL (40-60); HEMOLYSIS < 15 (0-50); Potassium 4.8 mmol/L (3.4-5.1); Sodium 138 mmol/L (137-145); Total Protein 7.4 g/dL (6.3-8.2); Triglycerides 112 mg/dL (35-150)
[2025-01-31 14:58] LABS: TSH w/ Reflex to FT4 1.28 uIU/mL (0.47-4.68)
[2025-01-31 15:17] LABS: Vitamin B12 418 pg/mL (239-931)
== END ==
PROVIDERS: PCP Family Medicine; Referring Provider Family Medicine; Visit Provider Family Medicine
DX: R73.01 Impaired fasting glucose (principal); R06.09 Other forms of dyspnea; I51.7 Cardiomegaly; Z82.49 Family history of ischemic heart disease and other diseases of the circulatory system
CPT/HCPCS: 36415; 80053; 80061; 82607; 84443; 85027